=== PATIENT | male | born 1960 | race Caucasian/White ===

== ENCOUNTER 2020-10-25 14:22 | Outpatient (REF) | payer OTHER, SELFPAY | END 2020-10-25 14:23 | disposition home or self-care (01) | LOC: HO.LAB 14:22 | PROVIDERS: Visit Provider Internal Medicine | DX: Z20.822 Contact with and (suspected) exposure to COVID-19 (principal) | CPT/HCPCS: 36415; C9803; U0003 ==

== ENCOUNTER 2020-11-29 11:32 | Outpatient (REF) | payer OTHER, SELFPAY ==
--- NOTE | ~2020-11-29 | XR_ITS ---
EXAMINATION: XR CHEST CLINICAL INFORMATION: Z98.890 - Other specified postprocedural states. COMPARISON: Chest radiographs 02/16/2019, 12/17/2018 TECHNIQUE: 2 views of the chest were obtained. FINDINGS: The heart is upper limits of normal size. There is even distribution vascularity which may suggest some mild elevated pulmonary venous pressure. There is coarsening of the bronchiolar markings. There are no [place] B lines or effusion. The costophrenic sulci are clear. The hilar and mediastinal contours are normal. There are surgical clips again noted right upper abdomen. No acute bony abnormality. XR/XR chest 2V IMPRESSION: Borderline heart size with even distribution vascularity which may suggest mild elevated pulmonary venous pressures. Coarsening bronchiolar markings. No [place] lines, infiltrate, or effusion.
--- NOTE | 2020-11-29 11:43 | ECG_ITS ---
Test Reason : OTHER CHEST PAIN Blood Pressure : / mmHG Vent. Rate : 091 BPM Atrial Rate : 091 BPM P-R Int : 156 ms QRS Dur : 132 ms QT Int : 396 ms P-R-T Axes : 057 -19 109 degrees QTc Int : 487 ms Sinus rhythm with occasional Premature ventricular complexes Possible Left atrial enlargement Left bundle branch block Abnormal ECG When compared with ECG of 17-DEC-2018 09:28, Premature ventricular complexes are now Present ST less elevated in Anterior leads Referred By: Gladys Clement Electronically Signed By:Gio Barkley
[2020-11-29 12:07] LABS: MANUAL DIFF FLAG NO
[2020-11-29 12:13] LABS: Basophils Percent Auto 0.1 % (0-2); Eosinophils Absolute Auto 0.1 X10*3/uL (0.0-0.4); Eosinophils Percent Auto 1.2 % (0-4); Hematocrit 41.8 % (42-52); Hemoglobin 13.1 g/dl (14.0-18.0); Imm Gran Abs Auto 0.03 X10*3/uL (0.00-0.03); Imm Gran Pct Auto 0.3 % (0.0-0.4); Lymphocytes Absolute Auto 1.9 X10*3/uL (1.2-4.9); Lymphocytes Percent Auto 21.9 % (20-40); Mean Corpuscular HGB Conc 31.3 g/dl (31.0-36.0); Mean Corpuscular Hemoglobin 25.6 pg (27.0-33.0); Mean Corpuscular Volume 81.8 fL (80-98); Mean Platelet Volume 11.8 fL (9.4-12.4); Monocytes Absolute Auto 0.8 X10*3/uL (0.1-1.2); Neutrophils Absolute Auto 5.9 X10*3/uL (2.0-8.3); Neutrophils Percent Auto 67.5 % (45-73); Platelet Count 257 X10*3/uL (160-400); Red Blood Count 5.11 X10*6/uL (4.60-5.80); White Blood Count 8.7 X10*3/uL (4.8-10.8)
[2020-11-29 12:39] LABS: Alanine Aminotransferase 32 U/L (0-40); Albumin Level 4.4 g/dL (3.5-5.0); Alkaline Phosphatase 66 U/L (39-117); Anion Gap 14 (12-20); Aspartate Amino Transferase 23 U/L (5-37); Bilirubin Total 0.5 mg/dL (0.0-1.0); Blood Urea Nitrogen 10 mg/dL (9-16); Calcium 9.2 mg/dL (8.4-10.2); Carbon Dioxide 26 mmol/L (22-29); Chloride 103 mmol/L (96-108); Cholesterol 360 mg/dL; Estimated Glomerular Filt Rate > 60; Glucose Fasting 100 mg/dL (60-99); HDL Cholesterol 38 mg/dL; Potassium 4.2 mmol/L (3.3-5.1); Sodium 139 mmol/L (135-145); Total Protein 7.1 g/dL (6.5-8.0); Triglycerides 590 mg/dL
[2020-11-29 12:40] LABS: Troponin-I High Sensitivity 5.8 ng/L (<3.5-35.0)
[2020-11-29 13:03] LABS: Prostate Specific Antigen Scr 0.65 ng/mL (<0.05-4.0)
== END 2020-11-29 11:33 | disposition home or self-care (01) ==
LOC: HO.LAB 11:32
PROVIDERS: PCP Physician Assistant; Visit Provider Nurse Practitioner Family
DX: Z00.00 Encounter for general adult medical examination without abnormal findings (principal); Z12.5 Encounter for screening for malignant neoplasm of prostate; R07.89 Other chest pain; Z98.890 Other specified postprocedural states
CPT/HCPCS: 36415; 71046; 80053; 80061; 84153; 84484; 85025; 93005

== ENCOUNTER → 2020-12-26 09:08 | Outpatient (BNVA) | payer OTHER, SELFPAY | PROVIDERS: PCP Physician Assistant; Visit Provider Nurse Practitioner ==

== ENCOUNTER → 2020-12-28 10:54 | Outpatient (BNVA) | payer OTHER, SELFPAY | PROVIDERS: PCP Physician Assistant; Visit Provider Internal Medicine Cardiovascular Disease ==

== ENCOUNTER → 2020-12-30 07:36 | Outpatient (REF) | payer OTHER, SELFPAY ==
--- NOTE | 2020-12-30 07:34 | CA_ITS ---
Transthoracic Echocardiogram Patient (Last, First, Middle): Jm Esparza J Gender: Male Date of : 1960 Age: 60 Procedure Date: 12/30/2020 Procedure Type: Transthoracic Echocardiogram Location: OP Height: 167.64 cm Weight: 72.58 kg BSA: 1.82 m2 Heart Rate: bpm BP: 122 / 60 mmHg Schedule Maker: Referring MD: Gio Barkley MD Symptoms: I44.7 - Left bundle-branch block, unspecified Study Quality: Fair ECG Rhythm: Sinus Conclusions: - 1. Severe LV systolic dysfunction with regional wall motion abnormality consistent with ischemic cardiomyopathy with elevated filling pressures 2. Mildly dilated left atrium 3. Mild aortic regurgitation 4. Normal RV systolic pressure 5. No pericardial effusion Findings Procedure Information Contrast agent, definity, is being given per protocol without apparent complications. Left Ventricle Normal left ventricular cavity size. There is normal left ventricular wall thickness. The left ventricular systolic function is severely decreased. The visually estimated ejection fraction is between 20-25%. There is evidence of regional wall motion abnormalities. Spectral Doppler is indicative of an impaired relaxation filling pattern. Elevated filling pressures. E/E prime ratio is >15, consistent with elevated filling pressures. Wall Motion Rest Echo Findings The anterior wall, the apical lateral, basal anteroseptal, and mid anteroseptal segments are hypokinetic. The inferoseptal wall, inferior wall, the apex, and apical septum segments are akinetic. All other scored wall segments showed normal motion. Right Ventricle Normal right ventricular cavity size and systolic function. Atria The left atrium is mildly dilated. There is no evidence of interatrial shunt. The right atrium is normal in size. Aortic Valve The aortic valve was not well visualized. There is mild calcification of the aortic valve. There is no aortic valve stenosis. There is mild aortic valve regurgitation. Mitral Valve Normal mitral valve structure and function. There is trace mitral valve regurgitation. There is no mitral valve stenosis. Pulmonic Valve The pulmonic valve was not well visualized. Tricuspid Valve Likely normal tricuspid valve structure and function. There is mild tricuspid valve regurgitation. The right ventricular systolic pressure is normal. The right ventricular systolic pressure is 17 mmHg. Normal right atrial pressure. There is no evidence of pulmonary hypertension. Great Vessels All visible segments of the aorta are normal in size. The pulmonary artery was not well visualized. Venous The inferior vena cava is normal in size and collapses greater than 50% with inspiration. Pericardium/Pleural There is no evidence of pericardial effusion. Prior Study Comparison No prior study available for comparison. Measurements 2D Linear Measurements IVSd: 0.78 0.6-0.9/0.6-1.0 cm LVIDd: 5.95 3.9-5.3/4.2-5.9 cm LVIDd Index: 3.27 2.4-3.2/2.2-3.1 cm/m2 LVIDs: 4.93 2.0-3.6 cm LVPWd: 0.85 0.7-1.1 cm Ao Root: 3.20 2.1-3.5 cm LA Diam: 3.50 2.7-3.8/3.0-4.0 cm LAIDs Index: 1.92 1.5-2.3 cm/m2 LV Mass: 232.44 67-162/88-224 g LV Mass Index: 127.71 43-95/49-115 g/m2 LVOT Diam: 2.20 3.0+(-)1.3 cm 2D Systolic Function EF 4C: 35.00 >55% EF 2C: 8.33 >55% EF BiP: 24.80 >55% Mitral Valve MV Pk E: 1.07 MV PK A: 1.19 MV Decel Time: 90.00 E/A: 0.90 E'Lateral: 8.90 E'Medial: 3.29 E/E' Med: 32.50 E/E' Lat: 12.00 PHT: 26.00 MVA PHT: 8.46 Decel Clarke: 11.88 Aortic Valve AoV Pk Gustavo: 1.64 AoV Mn Gustavo: 1.21 AoV VTI: 0.31 AoV Pk Grad: 11.00 Aov Mn Grad: 7.00 ZAIRE Cont.VTI: 2.74 AI Pk Gustavo: 4.21 AI Clarke: 4.81 LVOT LVOT Pk Gustavo: 1.20 LVOT Mn Gustavo: 0.81 LVOT VTI: 0.22 LVOT Pk Grad: 6.00 LVOT Mn Grad: 3.00 LVOT Diam: 2.20 LVOT Area: 3.80 Diastolic Function MV Pk E: 1.07 MV Pk A: 1.19 E/A: 0.90 E'Medial: 3.29 E/E' Med: 32.50 E' Laterial: 8.90 E/E' Lat: 12.00 Tricuspid Valve TR Pk Gustavo: 1.90 TR Pk Grad: 14.00 RA Press: 3.00 RVSP: 17.00 Great Vessels Aorta Ao Root-2D: 3.20 2.0-3.7 cm Ao Asc: 3.70 2.1-3.4 cm Pulmonary Valve PV Pk Gustavo: 1.06 Peak PV Grad: 4.00 Updated in Other Vendor System with Status of Final Remington Chappell MD electronically signed on 12/31/2020 3:31:43 PM with status of Final
== END ==
LOC: HO.CARD 07:36
PROVIDERS: Visit Provider Internal Medicine Cardiovascular Disease
DX: I44.7 Left bundle-branch block, unspecified (principal)
CPT/HCPCS: 93005; 93306; Q9957

== ENCOUNTER 2021-01-05 11:11 | Outpatient (REF) | payer OTHER, SELFPAY ==
[2021-01-05 12:33] LABS: Hematocrit 41.8 % (42-52); Hemoglobin 12.9 g/dl (14.0-18.0); Mean Corpuscular HGB Conc 30.9 g/dl (31.0-36.0); Mean Corpuscular Hemoglobin 25.5 pg (27.0-33.0); Mean Corpuscular Volume 82.6 fL (80-98); Mean Platelet Volume 12.7 fL (9.4-12.4); Platelet Count 283 X10*3/uL (160-400); Red Blood Count 5.06 X10*6/uL (4.60-5.80); Red Cell Distribution Width 13.6 % (11.0-16.0); White Blood Count 7.4 X10*3/uL (4.8-10.8)
[2021-01-05 12:41] LABS: Anion Gap 16 (12-20); Blood Urea Nitrogen 13 mg/dL (9-16); Calcium 10.1 mg/dL (8.4-10.2); Carbon Dioxide 27 mmol/L (22-29); Chloride 103 mmol/L (96-108); Estimated Glomerular Filt Rate > 60; Glucose Random 160 mg/dL (60-115); Potassium 4.5 mmol/L (3.3-5.1); Sodium 141 mmol/L (135-145)
== END 2021-01-05 11:12 | disposition home or self-care (01) ==
LOC: HO.LAB 11:11
PROVIDERS: Visit Provider Internal Medicine Cardiovascular Disease
DX: I25.5 Ischemic cardiomyopathy (principal)
CPT/HCPCS: 36415; 80048; 85027; 85610

== ENCOUNTER → 2021-01-19 11:08 | Outpatient (BNVA) | payer OTHER, SELFPAY | PROVIDERS: PCP Physician Assistant; Visit Provider Internal Medicine | DX: J45.40 Moderate persistent asthma, uncomplicated (principal); F17.200 Nicotine dependence, unspecified, uncomplicated | CPT/HCPCS: 99202 ==

== ENCOUNTER 2021-03-31 09:45 | Outpatient (REF) | payer OTHER, SELFPAY ==
--- NOTE | 2021-03-31 16:38 | PFT_ITS ---
INDICATION: Dyspnea and asthma. Off note, the patient is deaf. He used a tablet for ASL to interpret. SPIROMETRY: The FEV1 to FVC of 61% with an FEV1 of 1.55 L, which is 48% predicted and FVC of 2.52 L which is 61% predicted. Bronchodilators were not used due to the fact that the patient had just used his Combivent. Maximum voluntary ventilation 46% predicted. LUNG VOLUMES: Total lung capacity 91% predicted with residual volume 151% predicted. DIFFUSION CAPACITY: DLCO 75% predicted. He does have comparisons from 2017. INTERPRETATION: There is an obstructive ventilatory defect consistent with severe COPD. Again, bronchodilators were not provided due to his recent use of combivent. Maximum voluntary ventilation moderately decreased. Lung volumes with significant air trapping due to the COPD and there is also mild diffusion impairment. When compared to 2017, there is a significant decrease in the FVC, significant decrease in the FEV1, a trend decrease in the total lung capacity, a trend decrease in the residual volume, and a significant decrease in the diffusion capacity. Clinical correlation warranted. MD LAURITA Andrade/KWESI / [id number] MTDD
== END 2021-03-31 09:46 | disposition home or self-care (01) ==
LOC: HO.RESP 09:45
PROVIDERS: Visit Provider Internal Medicine
DX: J45.40 Moderate persistent asthma, uncomplicated (principal); R06.02 Shortness of breath
CPT/HCPCS: 94010; 94727; 94729

== ENCOUNTER → 2021-04-18 11:30 | Outpatient (BNVA) | payer OTHER, SELFPAY | PROVIDERS: Visit Provider Psychiatry & Neurology Neurology | DX: R06.89 Other abnormalities of breathing (principal); R06.83 Snoring; R06.81 Apnea, not elsewhere classified | CPT/HCPCS: 99202 ==

== ENCOUNTER → 2021-05-10 10:43 | Outpatient (BNVA) | payer OTHER, SELFPAY | PROVIDERS: Visit Provider Internal Medicine | DX: J44.9 Chronic obstructive pulmonary disease, unspecified (principal); F17.200 Nicotine dependence, unspecified, uncomplicated | CPT/HCPCS: 99212 ==

== ENCOUNTER 2021-06-30 09:13 | Outpatient (REF) | payer OTHER, SELFPAY ==
[2021-06-30 09:49] LABS: Hematocrit 40.4 % (42-52); Hemoglobin 12.6 g/dl (14.0-18.0); Mean Corpuscular HGB Conc 31.2 g/dl (31.0-36.0); Mean Corpuscular Hemoglobin 26.4 pg (27.0-33.0); Mean Corpuscular Volume 84.5 fL (80-98); Mean Platelet Volume 11.3 fL (9.4-12.4); Platelet Count 280 X10*3/uL (160-400); Red Blood Count 4.78 X10*6/uL (4.60-5.80); White Blood Count 7.2 X10*3/uL (4.8-10.8)
[2021-06-30 10:31] LABS: Alanine Aminotransferase 32 U/L (0-40); Albumin Level 4.1 g/dL (3.5-5.0); Alkaline Phosphatase 71 U/L (39-117); Anion Gap 12 (12-20); Aspartate Amino Transferase 26 U/L (5-37); Bilirubin Total 0.5 mg/dL (0.0-1.0); Blood Urea Nitrogen 5 mg/dL (9-16); Calcium 9.5 mg/dL (8.4-10.2); Carbon Dioxide 25 mmol/L (22-29); Chloride 109 mmol/L (96-108); Cholesterol 187 mg/dL; Estimated Glomerular Filt Rate > 60; Glucose Fasting 125 mg/dL (60-99); HDL Cholesterol 45 mg/dL; LDL Cholesterol Calculated 98 mg/dl; Potassium 4.1 mmol/L (3.3-5.1); Sodium 142 mmol/L (135-145); Total Protein 6.7 g/dL (6.5-8.0); Triglycerides 220 mg/dL
[2021-06-30 10:46] LABS: TSH reflex Free T4 0.52 uIU/mL (0.32-4.0)
== END 2021-06-30 09:14 | disposition home or self-care (01) ==
LOC: HO.LAB 09:13
PROVIDERS: PCP Physician Assistant; Visit Provider Physician Assistant
DX: I25.118 Atherosclerotic heart disease of native coronary artery with other forms of angina pectoris (principal); I10 Essential (primary) hypertension
CPT/HCPCS: 36415; 80053; 80061; 84443; 85027

== ENCOUNTER → 2021-07-04 11:34 | Outpatient (BNVA) | payer OTHER, SELFPAY | PROVIDERS: PCP Physician Assistant; Referring Provider Physician Assistant; Visit Provider Psychiatry & Neurology Neurology | DX: R06.89 Other abnormalities of breathing (principal); R06.83 Snoring; R06.81 Apnea, not elsewhere classified | CPT/HCPCS: 99212 ==

== ENCOUNTER → 2021-07-26 15:11 | Outpatient (REF) | payer OTHER, SELFPAY | LOC: HO.SL 15:11 | PROVIDERS: Visit Provider Psychiatry & Neurology Neurology | DX: J44.9 Chronic obstructive pulmonary disease, unspecified (principal); R06.81 Apnea, not elsewhere classified; R06.83 Snoring; R06.89 Other abnormalities of breathing | CPT/HCPCS: 95806 ==

== ENCOUNTER 2021-08-07 | Outpatient (REF) | payer OTHER, SELFPAY | END 2021-08-07 00:01 | disposition home or self-care (01) | LOC: CF | PROVIDERS: Visit Provider Internal Medicine | DX: J34.2 Deviated nasal septum (principal); F17.210 Nicotine dependence, cigarettes, uncomplicated | CPT/HCPCS: 99212 ==

== ENCOUNTER 2021-08-07 10:07 | Outpatient (REF) | payer OTHER, SELFPAY | END 2021-08-07 10:08 | disposition home or self-care (01) | LOC: HO.HAP 10:07 | PROVIDERS: Visit Provider Physician Assistant | DX: H90.3 Sensorineural hearing loss, bilateral (principal); J43.2 Centrilobular emphysema; F17.210 Nicotine dependence, cigarettes, uncomplicated | CPT/HCPCS: 92593; 99212 ==

== ENCOUNTER → 2022-01-10 14:50 | Outpatient (BNVA) | payer OTHER, SELFPAY | PROVIDERS: PCP Physician Assistant; Visit Provider Psychiatry & Neurology Neurology | DX: R06.83 Snoring (principal); R06.89 Other abnormalities of breathing | CPT/HCPCS: 99212 ==

== ENCOUNTER 2022-02-05 10:28 | Outpatient (REF) | payer OTHER, SELFPAY | END 2022-02-05 10:29 | disposition home or self-care (01) | LOC: HO.HAP 10:28 | PROVIDERS: Visit Provider Physician Assistant | DX: Z46.1 Encounter for fitting and adjustment of hearing aid (principal); H90.3 Sensorineural hearing loss, bilateral | CPT/HCPCS: 92593 ==

== ENCOUNTER → 2022-02-07 11:20 | Outpatient (BNVA) | payer OTHER, SELFPAY | PROVIDERS: PCP Physician Assistant; Visit Provider Internal Medicine | DX: J43.2 Centrilobular emphysema (principal); J45.40 Moderate persistent asthma, uncomplicated; F17.210 Nicotine dependence, cigarettes, uncomplicated | CPT/HCPCS: 99212 ==

== ENCOUNTER 2023-05-08 10:18 | Outpatient (AMB) | payer OTHER, SELFPAY ==
--- NOTE | 2023-05-08 10:19 | A.OFFPC_ITS ---
Vital Signs 05/08/23 10:21 Height 5 ft 6 in Weight 71.214 kg BMI 25.3 BP 110/62 Blood Pressure Location Lt brachial Position Sitting Pulse 77 Pulse Source Pulse Oximeter Pulse Oximetry (%) 95 Intake Visit Reasons: [facility] 04/19/23 sob Intake Note: pt is here for ed f/u from for SOB Cnc Lathe Programmer Required: Yes Cnc Lathe Programmer Language: [place] Sign Language Allergies No Known Allergies [No Known Allergies*] Allergy (Verified 05/08/23 10:20) Medication List - Last Reconciled 05/08/23 by MAVERICK Fernandez albuterol sulfate 90 mcg/actuation (ProAir RespiClick) 2 inhalations inhalation Q4-6H PRN 30 days aspirin 81 mg PO DAILY atorvastatin 80 mg PO BEDTIME blood sugar diagnostic ([employer] Ultra Test strips) As directed blood-glucose meter ([employer] Ultra2 Meter) As directed budesonide-formoterol 80-4.5 mcg/actuation (Symbicort) 2 puffs inhalation BID dapagliflozin propanediol (Farxiga) 10 mg PO DAILY furosemide 20 mg PO DAILY ipratropium-albuterol 20-100 mcg/actuation (Combivent Respimat) 1 puff PO QID lancets ([employer] Delica Safety Lancet) As directed losartan 25 mg PO DAILY metoprolol succinate ER 25 mg PO DAILY Tobacco use date assessed: 05/08/23 Dental Screening Dental Screen Date: 05/08/23 Did you have a dental visit in the last 12 months?: Yes Did you have a dental problem in the last 6 months where you did not have access to dental care?: No Was dental information given to patient?: Patient has dentist HPI HPI Comments History of Present Illness Details 8-year-old male with history of hypertension, coronary artery disease with history of STEMI in 2019 s/p mid LAD PCI, ischemic cardiomyopathy presents to the office today for hospital discharge follow-up. He was admitted to [facility] from 04/20- for management of acute on chronic heart failure exacerbation. Discharge medications have been reviewed and reconciled by me. He had initially presented to [facility] ED for evaluation of dyspnea on exertion with associated chest discomfort lasting about 30 minutes. He was also hypertensive with SBP in the 200s. Chest x-ray showed cardiac enlargement, pulmonary edema and bilateral pleural effusion consistent with CHF. DDimer elevated at 425. CTA of the chest was also performed without any evidence of pulmonary embolism but again showed interstitial pulmonary edema with moderate right and trace left pleural effusion. Trops initially elevated at 30, but repeat negative x2. ProBNP elevated at 1340. LDL also noted to be elevated at 154. EKG showed nonspecific changes. Echocardiogram showed significantly reduced LV systolic function with EF 20-25% with akinesis and thinning of the septal wall, mid distal anterolateral wall and hypokinesis of the inferior and anterior wall with mild dilatation of the LV. There is also grade 2 moderate diastolic dysfunction with pseudonormal LV filling and increased LA pressures. There was moderate aortic regurgitation, mild to moderate mitral valve regurgitation and moderate pulmonary hypertension. Medication noncompliance was suspected. He was diuresed with IV Lasix and transitioned to Lasix 20 mg p.o. daily and was also started on spironolactone 25 mg daily, Farxiga, and metoprolol 25 mg XL. He was continued on baby aspirin atorvastatin 80 mg. Incidentally found was new diagnosis of type 2 diabetes with hemoglobin A1c of 7.4. He was also incidentally found to have 1.0 cm pleural based nodular opacity at the left lower lobe with follow-up CT recommended in 3-6 months. Today he is here with his daughter. [place]ijani sign language interpretor used. Reports compliance with all discharge medications with full resolution of dyspnea and chest pain. He was not prescribed glucometer but is aware of diabetes diagnosis. [facility] Medical History Aortic regurgitation Asthma Chest pressure COPD (chronic obstructive pulmonary disease) Deaf, nonspeaking Grade II diastolic dysfunction Heart problem HFrEF (heart failure with reduced ejection fraction) High blood cholesterol level Hyperlipidemia Insomnia Mitral regurgitation KAITLYN (obstructive sleep apnea) Physical exam Shortness of breath at rest Surgical History History of cardiac catheterization History of cholecystectomy Family History Father No problems noted. Mother Diabetes Sister Diabetes High cholesterol Social History Housing: Apartment Alcohol intake: current Alcohol intake frequency: holidays/special occasions only Alcohol type: beer Patient Tobacco Use Status: Current everyday Tobacco user Cigarettes Per Day: 1 e-Cigarette/Vaping Use: Never Used service: No Current occupational status: disabled Cognitive needs: No Hearing needs: Yes Vision needs: Yes Questionnaire Thrive Questionnaire Date Thrive assessed: 03/28/22 RACHEL-7 AMB Questionnaire RACHEL-7 Date RACHEL - 7 assessed: 03/28/22 Source: Developed by Drs. Demond Rodarte, Beverly Estrada, Regan Rubio and colleagues, with an educational nanda from [employer]. Review of Systems Const All systems reviewed & are unremarkable except as noted in HPI and below Physical exam (Primary Care) Vital Signs: Last Vital Signs Pulse 77 05/08/23 10:21 BP 110/62 05/08/23 10:21 Pulse Ox 95 05/08/23 10:21 BMI result Body Mass Index 25.3 Tobacco/Smoking Status: Tobacco use Status Tobacco use date assessed 05/08/23 05/08/23 10:21 Patient Tobacco Use Status Current everyday Tobacco 05/08/23 10:21 e-Cigarette/Vaping Use Never Used 05/08/23 10:21 Thrive Assessment: Date of Thrive Assessment Date Thrive assessed 03/28/22 05/08/23 10:21 Const Other: Constitutional - Awake and Alert, No apparent distress Eyes - PERRLA, EOMI Cardiovascular - S1S2, RRR, No edema Respiratory - Normal lung expansion, Normal respiratory effort, No respiratory distress, CTA bilaterally Extremities - no calf tenderness bilaterally, no swelling Skin - Warm/Dry Neurological - Alert & oriented x3 Results Reviewed Results Reviewed: cbc, bmp, tropx3, bnp, ddimer, cxr, cta chest, echo Assessment and Plan Assessment & Plan (1) HFrEF (heart failure with reduced ejection fraction): Comment: EF 20-25% Code(s): I50.20 - Unspecified systolic (congestive) heart failure Plan: Clinically euvolemic on exam. Acute exacerbation likely related to noncompliance with medications. Continue lasix 20mg, spironolactone 25mg, farxiga 10mg, losartan 25mg. Blood pressures well controlled. Echocardiogram reviewed showing significantly reduced LV systolic fx with EF 20-25% and grade II diastolic dysfunction. Smoking cessation strongly encouraged. Recommend low sodium diet and fluid restrictions to 1.2L. Follow up with cardiology on 7/31 as scheduled. (2) Grade II diastolic dysfunction: Code(s): I51.89 - Other ill-defined heart diseases Plan: As above. (3) DMII (diabetes mellitus, type 2): Code(s): E11.9 - Type 2 diabetes mellitus without complications Qualifiers: Diabetes mellitus care home insulin use: without director long term care use Diabetes mellitus complication status: with hyperglycemia Qualified Code(s): E11.65 - Type 2 diabetes mellitus with hyperglycemia Plan: Hgb A1c at [facility] 7.4%, goal <7.0%. Continue Farxiga 10mg. Counseled on diabetic diet. Counseled on risks of poorly controlled type 2 diabetes. Will have community navigation follow. Follow up in 3 months with PCP. (4) Pulmonary nodule 1 cm or greater in diameter: Code(s): R91.1 - Solitary pulmonary nodule Plan: 1.0cm solid nodule seen on chest CTA. Pulmology consult placed with recommendation for repeat chest CT 3-6 months. Smoking cessation strongly encouraged. (5) CAD (coronary artery disease): Code(s): I25.10 - Atherosclerotic heart disease of [place] coronary artery without angina pectoris Qualifiers: Coronary Disease-Associated Artery/Lesion type: [place] artery [place] vs. transplanted heart: [place] heart Associated angina: with stable angina Qualified Code(s): I25.118 - Atherosclerotic heart disease of [place] coronary artery with other forms of angina pectoris Plan: No ongoing anginal chest pain. INitial trop elevated, but repeat negative x 2. EKG on admission with nonspecific abnormalities. LDL 156, goal <70, likekly n oncompliant with statin. Continue atorvastatin 80mg, asa 81mg daily, metoprolol 25mg XL. Follow up with cardiology as scheduled. Orders: Referrals Pulmonology Referral J44.9 - Chronic obstructive pulmonary disease, unspecified, R91.1 - Solitary pulmonary nodule Medications: New blood-glucose meter ([employer] Ultra2 Meter) As directed 1 ea 0RF blood sugar diagnostic ([employer] Ultra Test strips) As directed 100 ea 2RF lancets ([employer] Delica Safety Lancet) As directed 200 ea 0RF Refilled aspirin 81 mg PO DAILY 30 tabs 0RF atorvastatin 80 mg PO BEDTIME 90 tabs 2RF I25.118 - Atherosclerotic heart disease of [place] coronary artery with other forms of angina pectoris Coding Level of Care Code Est Pt Level 5 (15761) Diagnoses HFrEF (heart failure with reduced ejection fraction) I50.20 Grade II diastolic dysfunction I51.89 DMII (diabetes mellitus, type 2) E11.65 Diabetes mellitus care home insulin use: without care home use Diabetes mellitus complication status: with hyperglycemia Pulmonary nodule 1 cm or greater in diameter R91.1 CAD (coronary artery disease) I25.118 Coronary Disease-Associated Artery/Lesion type: [place] artery [place] vs. transplanted heart: [place] heart Associated angina: with stable angina Time Spent (min) 50 Comment results reviewed and H&P, D/S. Time also spent w/ pt with ASL interpretor and documentatio
[2023-05-08 10:21] VITALS: BP 110/62; PULSE 77; O2SAT 95; BMI 25.3
== END 2023-05-08 11:06 | disposition home or self-care (01) ==
PROVIDERS: PCP Physician Assistant; Visit Provider Physician Assistant
DX: I50.20 Unspecified systolic (congestive) heart failure (principal); E11.65 Type 2 diabetes mellitus with hyperglycemia; I51.89 Other ill-defined heart diseases; I25.118 Atherosclerotic heart disease of native coronary artery with other forms of angina pectoris; R91.1 Solitary pulmonary nodule
CPT/HCPCS: 99215

== ENCOUNTER 2023-05-13 15:11 | Outpatient (AMB) | payer OTHER, SELFPAY ==
[2023-05-13 15:19] VITALS: BP 100/54; PULSE 70; BMI 25.6
--- NOTE | 2023-05-13 15:19 | MHC.OFFVIS ---
Intake Vital Signs 05/13/23 15:19 Height 5 ft 6 in Weight 158 lb 11.725 oz BMI 25.6 BP 100/54 L Blood Pressure Location Lt brachial Position Sitting Pulse 70 Intake Visit Reasons: [facility] follow up acute CHF Intake Note: [facility] f/u acute CHF Archery Equipment Hay Sorter Required: Yes Archery Equipment Hay Sorter Name: cyracom Allergies No Known Allergies [No Known Allergies*] Allergy (Verified 05/13/23 15:28) Medication List - Last Reconciled 05/13/23 by Felicitas Chester, ROSTER CLERK-C albuterol sulfate 90 mcg/actuation (ProAir RespiClick) 2 inhalations inhalation Q4-6H PRN 30 days aspirin 81 mg PO DAILY atorvastatin 80 mg PO BEDTIME blood sugar diagnostic ([employer]uch Ultra Test strips) As directed blood-glucose meter ([employer]ating[employer]uch Ultra2 Meter) As directed budesonide-formoterol 80-4.5 mcg/actuation (Symbicort) 2 puffs inhalation BID dapagliflozin propanediol (Farxiga) 10 mg PO DAILY furosemide 20 mg PO DAILY ipratropium-albuterol 20-100 mcg/actuation (Combivent Respimat) 1 puff PO QID lancets ([employer] Delica Safety Lancet) As directed losartan 25 mg PO DAILY metoprolol succinate ER 25 mg PO DAILY HPI [facility] follow up acute CHF HPI Details Jm is a 62-year-old male with past medical history smoking, hypertension, hyperlipidemia, impaired fasting glucose left bundle branch block, CAD with prior anterior STEMI with HENRIK to the LAD, obstructive sleep apnea who was recently admitted to [facility] with increased shortness of breath and treated for hypoxic respiratory failure heart failure with reduced EF, COPD exacerbation. Today he presents for follow-up. His sister is present and assists with Jamaican and sign language communication. His daughter is also on face time and providing information regarding her father's condition. Patient reports he is feeling good with no concerning symptoms. He says he is okay. No chest discomfort, shortness of breath, dizziness, swelling. It does light physical activities at home. Family reports he is taking his medications as directed. [facility] Medical History Aortic regurgitation Asthma Chest pressure COPD (chronic obstructive pulmonary disease) Deaf, nonspeaking Grade II diastolic dysfunction Heart problem HFrEF (heart failure with reduced ejection fraction) High blood cholesterol level Hyperlipidemia Insomnia Mitral regurgitation KAITLYN (obstructive sleep apnea) Physical exam Shortness of breath at rest Surgical History History of cardiac catheterization History of cholecystectomy Family History Father No problems noted. Mother Diabetes Sister Diabetes High cholesterol Social History Housing: Apartment Alcohol intake: current Alcohol intake frequency: holidays/special occasions only Alcohol type: beer Patient Tobacco Use Status: Current everyday Tobacco user Cigarettes Per Day: 1 e-Cigarette/Vaping Use: Never Used service: No Current occupational status: disabled Cognitive needs: No Hearing needs: Yes Vision needs: Yes Review of Systems Const All systems reviewed & are unremarkable except as noted in HPI and below ENT Reports dizziness Card Denies chest pain, Denies chest pain at rest, Denies chest pain with activity, Denies rapid heart rate, Denies pedal edema, Denies edema, Denies leg edema, Denies lightheadedness, Denies palpitations, Denies dyspnea, Denies dyspnea on exertion and Denies orthopnea Resp Denies cough, Denies dyspnea and Denies dyspnea on exertion GI Denies hematochezia and Denies change in stool character Musc Denies abnormal gait, Reports limited range of motion, Reports muscle cramps, Denies muscle weakness, Denies numbness, Denies radiating pain into limb, Denies stiffness and Denies tingling Neuro Denies abnormal gait, Reports dizziness, Denies numbness and Denies tingling Endo Denies palpitations Physical Exam Vital Signs: Last Vital Signs Pulse 70 05/13/23 15:19 BP 100/54 L 05/13/23 15:19 BMI result Body Mass Index 25.6 Const General: cooperative, healthy appearing, comfortable and no acute distress Orientation/consciousness: patient oriented x3 Neck Neck: Yes normal visual inspection Resp Effort & Inspection: normal respiratory effort Auscultation: clear to auscultation bilaterally, no crackles, no rales, no rhonchi and no wheezes Cardio Jugular venous distension: no JVD Rate: regular rate Rhythm: regular rhythm Heart sounds: S1 normal heart sound present, S2 normal heart sound present, no murmurs and no rubs GI Inspection: Yes normal to inspection Neuro General: patient oriented x3 Extrem General: Yes normal to inspection, No no pedal edema and No calf tenderness Psych Other: Sign language and lip reading Appearance: grossly normal Mental Status: mental status grossly normal Office Procedures EKG Details: Today, read by me, sinus rhythm, possible left atrial enlargement, right axis deviation, nonspecific intraventricular conduction delay, nonspecific T-wave abnormality, similar to prior EKG, rate 70, QTC 451 milliseconds [id number], Complete Assessment & Plan Assessment & Plan (1) CAD (coronary artery disease): Code(s): I25.10 - Atherosclerotic heart disease of [place] coronary artery without angina pectoris Qualifiers: Associated angina: with stable angina Coronary Disease-Associated Artery/Lesion type: [place] artery [place] vs. transplanted heart: [place] heart Qualified Code(s): I25.118 - Atherosclerotic heart disease of [place] coronary artery with other forms of angina pectoris Plan: History of CAD with prior anterior STEMI proximal LAD occlusion and HENRIK placed. 12/2018. He did have residual ischemic cardiomyopathy with EF 30-35%. Cardiac catheterization done for chest discomfort 01/06/2021 showed mid LAD stent patent, proximal section 40% stenosis, 1st diagonal 30% stenosis, left circumflex mild disease, RCA mild disease, distally 75% stenosis. Last echo in our system 12/30/2020 showed EF 20-25%. His last prior visit in our office was 12/28/2020. He was then admitted to [facility] recently with shortness of breath and treated for heart failure with reduced EF, hypoxic respiratory failure, COPD exacerbation. The echocardiogram from [facility] indicates EF 20-25%. Nuclear stress test was done 04/23/2023 showing ischemic cardiomyopathy, severe large fixed perfusion defect in the basal to apical anterior septal and inferior septal and inferior mayers he is currently being managed medically with aspirin indefinitely. Atorvastatin 80 mg daily, metoprolol XL 25 mg daily, losartan 25 mg daily. His blood pressure today 100/54, heart rate controlled at 70. He reports feeling well with no anginal sounding symptoms. (2) History of coronary artery stent placement: Comment: He presented with anterior STEMI in December 2018. He underwent emergent cardiac catheterization where proximal LAD was occluded which was treated with drug-eluting stent. Code(s): Z95.5 - Presence of coronary angioplasty implant and graft (3) Ischemic cardiomyopathy: Comment: Post myocardial infarction his ejection fraction was 30 35%. Since then he has not had any evaluation of his left ventricular function. Clinically not in heart failure. Code(s): I25.5 - Ischemic cardiomyopathy Plan: EF 20-25% on most recent echo. He is on metoprolol XL and losartan for neurohormonal modulation. Unable to further titrate at present due to blood pressure 100/54. No clinical signs of decompensated heart failure. He was treated for mild heart failure during last hospital admission at [facility]. He continues on low-dose Lasix 20 mg daily. Signs and symptoms of heart failure reviewed. Will check with his primary community development planner regarding ICD placement. (4) HFrEF (heart failure with reduced ejection fraction): Comment: EF 20-25% Code(s): I50.20 - Unspecified systolic (congestive) heart failure Plan: As above (5) LBBB (left bundle branch block): Comment: Chronic and stable Code(s): I44.7 - Left bundle-branch block, unspecified Plan: History of left bundle branch block. May benefit from Bi V ICD (6) Deaf, nonspeaking: Code(s): H91.3 - Deaf nonspeaking, not elsewhere classified Plan: building insulation installer recommended for visit Coding Level of Care Code Est Pt Level 4 (61552) Diagnoses CAD (coronary artery disease) I25.118 Associated angina: with stable angina Coronary Disease-Associated Artery/Lesion type: [place] artery [place] vs. transplanted heart: [place] heart History of coronary artery stent placement Z95.5 Ischemic cardiomyopathy I25.5 HFrEF (heart failure with reduced ejection fraction) I50.20 LBBB (left bundle branch block) I44.7 Deaf, nonspeaking H91.3 CPT Codes EKG - CPT: [id number], Complete ([id number]) Time Spent (min) 30 Comment Chart review, documentation, interview, assessment
== END 2023-05-13 15:56 | disposition home or self-care (01) ==
PROVIDERS: PCP Physician Assistant; Visit Provider Nurse Practitioner Family
DX: R94.31 Abnormal electrocardiogram [ECG] [EKG] (principal)
CPT/HCPCS: 93010; 99214

== ENCOUNTER → 2023-05-13 15:11 | Outpatient (BNVA) | payer OTHER, SELFPAY | PROVIDERS: PCP Physician Assistant; Visit Provider Nurse Practitioner Family | DX: I25.118 Atherosclerotic heart disease of native coronary artery with other forms of angina pectoris (principal); I25.5 Ischemic cardiomyopathy; I50.20 Unspecified systolic (congestive) heart failure; I44.7 Left bundle-branch block, unspecified; H91.3 Deaf nonspeaking, not elsewhere classified; Z95.5 Presence of coronary angioplasty implant and graft | CPT/HCPCS: 93005; 99212 ==

== ENCOUNTER 2023-05-16 14:28 | Outpatient (AMB) | payer OTHER, SELFPAY ==
[2023-05-16 14:31] VITALS: BP 128/62; PULSE 88; O2SAT 96
--- NOTE | 2023-05-16 14:31 | MHC.OFFVIS ---
Intake Vital Signs 05/16/23 14:31 Weight 163 lb 2.273 oz BP 128/62 Blood Pressure Location Lt brachial Position Sitting Pulse 88 Pulse Source Pulse Oximeter Pulse Oximetry (%) 96 Oxygen Delivery Method Room Air Intake Visit Reasons: Abnormal CTA Allergies No Known Allergies [No Known Allergies*] Allergy (Verified 05/16/23 14:54) Medication List - Last Reconciled 05/16/23 by Santa Uribe MD aspirin 81 mg PO DAILY atorvastatin 80 mg PO BEDTIME blood sugar diagnostic (Doctor on [employer] Ultra Test strips) As directed blood-glucose meter ([place] [employer] Ultra2 Meter) As directed dapagliflozin propanediol (Farxiga) 10 mg PO DAILY furosemide 20 mg PO DAILY ipratropium-albuterol 20-100 mcg/actuation (Combivent Respimat) 1 puff PO QID lancets ([employer] Delica Safety Lancet) As directed losartan 25 mg PO DAILY metoprolol succinate ER 25 mg PO DAILY Do you need a note to return to daycare/school/sports/work: No HPI Abnormal CTA HPI Details 62 YEARS OLD, SYRIAC GENTLEMAN, DEAF AND MUTE, COMMUNICATES ONLY WITH SIGN LANGUAGE. HIS SISTER CAME WITH HIM BUT SHE SPEAKS ONLY SYRI[place]. WE EXAMINED HIM WITH THE HELP OF A OVEN DRIER TENDER. HE HAS LONGSTANDING HISTORY OF SMOKING BUT ONLY A FEW CIGARETTES PER DAY. HE HAS HAD SYMPTOMS OF ASTHMA/MILD COPD, AND HAS USED COMBIVENT RESPIMAT 1 INHALATION Q 6 HOURS P.R.N.. SOME DAYS HE USES ONLY 1 OR 2 TIMES, AND SOME DAYS HE DOES NOT NEED AT ALL. IF HE DOES HAVE HISTORY OF CORONARY ARTERY DISEASE WITH PREVIOUS ANGIOPLASTY AND STENT PLACEMENT. HIS OTHER COMORBIDITIES INCLUDE HYPERLIPIDEMIA, HYPERTENSION MILD CONGESTIVE HEART FAILURE. HE LIVES ALONE BUT CLOSE LEAVE WATCHED BY HIS SISTER. HE WAS ADMITTED AT [facility] A FEW WEEKS AGO FOR CHEST PAIN. HE HAD CT ANGIOGRAM OF THE CHEST BECAUSE OF ELEVATED D-DIMER. THERE WAS NO EVIDENCE OF PULMONARY EMBOLISM. HE WAS FOUND TO HAVE MULTIPLE SMALL GRANULOMATOUS NODULES CALCIFIED. BUT 1 NODULE WAS 1 X 0.8 CM, BASED IN LEFT LOWER LOBE. A FOLLOW-UP CT SCAN IN 3-6 MONTHS WAS RECOMMENDED. ALSO RECOMMENDED THAT HE SHOULD HAVE PULMONARY FUNCTION TEST. SINCE THAT ADMISSION PATIENT HAS NOT SMOKED., AND EVEN BEFORE THAT HE WAS SMOKING ONLY A FEW CIGARETTES A DAY. PFSH Medical History Aortic regurgitation Asthma Chest pressure COPD (chronic obstructive pulmonary disease) Deaf, nonspeaking Grade II diastolic dysfunction Heart problem HFrEF (heart failure with reduced ejection fraction) High blood cholesterol level Hyperlipidemia Insomnia Mitral regurgitation KAITLYN (obstructive sleep apnea) Physical exam Shortness of breath at rest Surgical History History of cardiac catheterization History of cholecystectomy Family History Father No problems noted. Mother Diabetes Sister Diabetes High cholesterol Social History Housing: Apartment Alcohol intake: current Alcohol intake frequency: holidays/special occasions only Alcohol type: beer Patient Tobacco Use Status: Current everyday Tobacco user Cigarettes Per Day: 1 e-Cigarette/Vaping Use: Never Used service: No Current occupational status: disabled Cognitive needs: No Hearing needs: Yes Vision needs: Yes Review of Systems Const All systems reviewed & are unremarkable except as noted in HPI and below Eyes Reports no additional complaints ENT Reports no additional complaints and Denies Normal hearing present (DEAF AND DUMB) Card Denies chest pain, Denies irregular heart rhythm and Denies leg edema Resp Reports as per HPI GI Reports no additional complaints Reports no additional complaints Musc Reports no additional complaints Neuro Denies Normal hearing present (DEAF AND DUMB) Physical Exam Vital Signs: Last Vital Signs Pulse 88 05/16/23 14:31 BP 128/62 05/16/23 14:31 Pulse Ox 96 05/16/23 14:31 Oxygen Delivery Method Room Air 05/16/23 14:31 Const General: healthy appearing, comfortable, no acute distress, alert and awake Orientation/consciousness: patient oriented x3 HEENT Head: Yes normal to inspection General nose exam: No nasal polyps present and No nasal discharge present Face and sinus: Yes sinuses nontender Mouth: oropharynx normal Throat: Yes posterior oropharynx normal Eyes General: appearance normal, both eyes and all related structures Neck Neck: Yes normal visual inspection, Yes no lymphadenopathy, Yes trachea midline and Yes no JVD Thyroid: Thyroid normal Chest Chest palpation & inspection: normal inspection of the chest, normal palpation of entire chest wall and no tenderness Resp Other: Percussion note resonant, breath sounds are equal on both sides, slightly distant with prolonged expiratory phase. No wheezes rhonchi or crepitations are heard today . Cardio Palpation: normal PMI Rate: regular rate Rhythm: regular rhythm Heart sounds: no gallops and no murmurs GI Palpation (GI): Soft to palpation, nontender, No hepatosplenomegaly present and no masses Auscultation: normal bowel sounds Back/Spine/Pelvis Thoracic/Lumbar Spine: thoracic and lumbar spine normal to inspection Skin General skin exam: no rashes or lesions noted Neuro General: patient oriented x3 and no focal motor deficits Cranial nerves: No Normal hearing present (DEAF AND DUMB) Extrem General: Yes normal to inspection, Yes no clubbing, cyanosis or edema and Yes no calf tenderness Psych Appearance: well kempt Mental Status: mental status grossly normal (Communicated with him via sign language) Speech and movement: Normal speech and movement present Results Reviewed Results Reviewed: The CTA of , at [facility] on 04/24/2023 is reviewed. Findings included: Moderate degree of pulmonary emphysema in the upper lungs Few scattered calcified granulomas in both lungs slightly increased bronchovascular markings One.0x0.8 cm sub pleural nodular opacity at left lower lobe No mediastinal or hilar lymph nodes noted except 1 prominent mediastinal lymph node 1.1 cm in size in the subcarinal area Assessment & Plan Assessment & Plan (1) Smoker: Comment: He is a long-time smoker. Claims that he smoked only a few cigarettes a day , not excessively. SINCE HIS ADMISSION TO [facility] HE HAS QUIT SMOKING COMPLETELY. HE WAS COMMENDED FOR DOING THAT AND ADVISED NOT TO RESUME. SMOKING AT ALL * HE COMPLETED THE PULMONARY FUNCTION. TEST TODAY AND DID VERY WELL THE RESULTS INDICATE MODERATELY SEVERE OBSTRUCTIVE AIRWAY DISORDER. NO SIGNIFICANT RESPONSE TO BDs . Code(s): F17.200 - Nicotine dependence, unspecified, uncomplicated (2) Asthma: Comment: This gentleman has long-standing history of bronchial asthma. But his symptoms are very minimal and clinically well controlled [place] : As under COPD Code(s): J45.909 - Unspecified asthma, uncomplicated Qualifiers: Asthma complication type: uncomplicated Asthma persistence: persistent Asthma severity: moderate Qualified Code(s): J45.40 - Moderate persistent asthma, uncomplicated (3) COPD (chronic obstructive pulmonary disease): Comment: HE DOES HAVE MILD TO MODERATE DEGREE OF CHRONIC OBSTRUCTIVE PULMONARY DISEASE. CURRENTLY SEEMS TO BE WELL CONTROLLED AND STABLE ON COMBIVENT RESPIMAT , USING ONLY P.R.N. ESPECIALLY WHEN HE WALKS AROUND. I ADVISED HIM TO USE 1 INHALATION TID REGULARLY, AND IN BETWEEN HE MIGHT USE EVERY 4-6 HOURS NEEDED. PRESCRIPTION IS RENEWED. * PULMONARY FUNCTION TEST PERFORMED IN THE OFFICE TODAY, RESULTS C/W MODERATELY SEVERE OBSTRUCTIVE AIRWAY DISORDER. NO RESPONSE TO BDs Code(s): J44.9 - Chronic obstructive pulmonary disease, unspecified Qualifiers: COPD type: emphysema Emphysema type: centrilobular Qualified Code(s): J43.2 - Centrilobular emphysema (4) Pulmonary nodule 1 cm or greater in diameter: Comment: PATIENT DOES HAVE MULTIPLE SMALL CALCIFIED GRANULOMAS, IN BOTH LUNGS. THESE ARE CONSIDERED BENIGN. ONE NODULE 1X0.8 CM IN LEFT LOWER LOBE DESCRIBED ABOVE. THERE IT IS NEEDS FOLLOW-UP SCAN WHICH WILL BE DONE IN 3-4 MONTHS. Code(s): R91.1 - Solitary pulmonary nodule Orders: Orders PFT pulmonary function test Today F17.200 - Nicotine dependence, unspecified, uncomplicated, J44.9 - Chronic obstructive pulmonary disease, unspecified, J45.909 - Unspecified asthma, uncomplicated Medications: Refilled ipratropium-albuterol 20-100 mcg/actuation (Combivent Respimat) 1 puff PO QID 12 mL 3RF J45.40 - Moderate persistent asthma, uncomplicated Coding Level of Care Code Est Pt Level 4 (38816) Diagnoses Smoker F17.200 Asthma J45.40 Asthma complication type: uncomplicated Asthma persistence: persistent Asthma severity: moderate COPD (chronic obstructive pulmonary disease) J43.2 COPD type: emphysema Emphysema type: centrilobular Pulmonary nodule 1 cm or greater in diameter R91.1
== END 2023-05-16 14:52 | disposition home or self-care (01) ==
PROVIDERS: PCP Physician Assistant; Visit Provider Internal Medicine
DX: F17.200 Nicotine dependence, unspecified, uncomplicated (principal); J45.40 Moderate persistent asthma, uncomplicated; J43.2 Centrilobular emphysema; R91.1 Solitary pulmonary nodule
CPT/HCPCS: 94060; 94727; 94729; 99214

== ENCOUNTER → 2023-05-16 14:28 | Outpatient (BNVA) | payer OTHER, SELFPAY | PROVIDERS: PCP Physician Assistant; Visit Provider Internal Medicine ==

== ENCOUNTER 2023-05-16 14:52 | Outpatient (REF) | payer OTHER, SELFPAY ==
--- NOTE | 2023-05-16 15:36 | PFT_ITS ---
INDICATION: COPD. SPIROMETRY: FEV1 to FVC of 58% with an FEV1 of 1.48 L, which is 47% predicted. FVC of 2.54 L, which is 61% predicted. No significant response to bronchodilators noted. Maximum voluntary ventilation 34% predicted. LUNG VOLUMES: Total lung capacity 77% predicted. DIFFUSION CAPACITY: DLCO 75% predicted. COMPARISONS: None. INTERPRETATION: There is an obstructive ventilatory defect consistent with severe COPD. No significant response to bronchodilators noted. Severe decrease in the maximum voluntary ventilation secondary to likely deconditioning and also worsening dynamic inspiratory capacity. Lung volumes do demonstrate a restrictive ventilatory defect consistent with mild restrictive lung disease. Need to consider underlying parenchymal lung disease. In addition to that, the patient does have a mild diffusion impairment secondary to the above. Clinical correlation warranted. Pasquale Mccoy MD MR/MODL / [id number]
== END 2023-05-16 14:53 | disposition home or self-care (01) ==
LOC: HO.RESP 14:52
PROVIDERS: Visit Provider Internal Medicine
DX: J43.2 Centrilobular emphysema (principal); R91.1 Solitary pulmonary nodule; F17.200 Nicotine dependence, unspecified, uncomplicated
CPT/HCPCS: 94010; 94727; 94729; 99212

== ENCOUNTER → 2023-07-23 14:16 | Outpatient (REF) | payer OTHER, SELFPAY | LOC: HO.CARD 14:16 | PROVIDERS: PCP Physician Assistant; Visit Provider Nurse Practitioner Family | DX: I25.5 Ischemic cardiomyopathy (principal) | CPT/HCPCS: 93308; Q9957 ==

== ENCOUNTER → 2023-07-23 14:20 | Outpatient (BNV) | payer OTHER, SELFPAY | PROVIDERS: PCP Physician Assistant; Visit Provider Internal Medicine | DX: I25.5 Ischemic cardiomyopathy (principal) | CPT/HCPCS: 93308 ==

== ENCOUNTER 2023-07-25 14:29 | Outpatient (AMB) | payer OTHER, SELFPAY ==
--- NOTE | 2023-07-25 14:41 | A.OFFVIS_ITS ---
Intake Vital Signs 07/25/23 14:43 Height 5 ft 6 in Weight 163 lb BMI 26.3 BP 110/60 Blood Pressure Location Lt brachial Position Sitting Pulse 87 Pulse Source Doppler Pulse Oximetry (%) 95 Oxygen Delivery Method Room Air Intake Visit Reasons: pulm nodule Intake Note: Patient is here for a follow up on pulmonary nodule, patient c/o asthma symptoms and is also following up on PFT results. Shellfish Manager Required: Yes Allergies No Known Allergies [No Known Allergies*] Allergy (Verified 07/25/23 15:02) Medication List - Last Reconciled 07/25/23 by Santa Uribe MD aspirin 81 mg PO DAILY atorvastatin 80 mg PO BEDTIME blood sugar diagnostic (FreeStyle Lite Strips) As directed blood-glucose meter (FreeStyle Lite Meter kit) As directed dapagliflozin propanediol (Farxiga) 10 mg PO DAILY furosemide 20 mg PO DAILY ipratropium-albuterol 20-100 mcg/actuation (Combivent Respimat) 1 puff PO QID lancets ([employer] Safety Lancet) As directed lancets (FreeStyle Lancets) As directed losartan 25 mg PO DAILY metoprolol succinate ER 25 mg PO DAILY Do you need a note to return to daycare/school/sports/work: No HPI pulm nodule HPI Details 62 years old gentleman who is deaf and d umb, communicates only with sign language. His came with him who speaks Bermudian, but not too good with sign language. We had his daughter on the cellphone, who helped us to communicate with him. He is the expressing that he feels fine and has only mild cough. Denies any wheezing, does have mild shortness of breath on walking around or climbing stairs. Main concern is that when he was at [facility] in April of this year he was told to have a pulmonary nodule which need to be followed up. Also he has had pulmonary function test and wants to go over the results. He has quit smoking for most of the time but still uses about 1 cigarette per day. [facility] Medical History Grade II diastolic dysfunction Mitral regurgitation Aortic regurgitation HFrEF (heart failure with reduced ejection fraction) COPD (chronic obstructive pulmonary disease) High blood cholesterol level Chest pressure Shortness of breath at rest Physical exam Heart problem KAITLYN (obstructive sleep apnea) Insomnia Hyperlipidemia Deaf, nonspeaking Asthma Surgical History History of cardiac catheterization History of cholecystectomy Family History Father No problems noted. Mother Diabetes Sister Diabetes High cholesterol Social History Housing: Apartment Alcohol intake: current Alcohol intake frequency: holidays/special occasions only Alcohol type: beer Patient Tobacco Use Status: Former Tobacco user Cigarettes Per Day: 1 e-Cigarette/Vaping Use: Never Used service: No Current occupational status: disabled Cognitive needs: No Hearing needs: Yes Vision needs: Yes Review of Systems Const All systems reviewed & are unremarkable except as noted in HPI and below Eyes Reports no additional complaints ENT Reports no additional complaints and Denies Normal hearing present (DEAF AND DUMB) Card Denies chest pain, Denies irregular heart rhythm and Denies leg edema Resp Reports as per HPI GI Reports no additional complaints Reports no additional complaints Musc Reports no additional complaints Neuro Denies Normal hearing present (DEAF AND DUMB) Physical Exam Vital Signs: Last Vital Signs Pulse 87 07/25/23 14:43 BP 110/60 07/25/23 14:43 Pulse Ox 95 07/25/23 14:43 Oxygen Delivery Method Room Air 07/25/23 14:43 BMI result Body Mass Index 26.3 Const General: healthy appearing, comfortable, no acute distress, alert and awake Orientation/consciousness: patient oriented x3 HEENT Head: Yes normal to inspection General nose exam: No nasal polyps present and No nasal discharge present Face and sinus: Yes sinuses nontender Mouth: oropharynx normal Throat: Yes posterior oropharynx normal Eyes General: appearance normal, both eyes and all related structures Neck Neck: Yes normal visual inspection, Yes no lymphadenopathy, Yes trachea midline and Yes no JVD Thyroid: Thyroid normal Chest Chest palpation & inspection: normal inspection of the chest, normal palpation of entire chest wall and no tenderness Resp Other: Percussion note resonant, breath sounds are equal on both sides, slightly distant with prolonged expiratory phase. No wheezes rhonchi or crepitations are heard today . Cardio Palpation: normal PMI Rate: regular rate Rhythm: regular rhythm Heart sounds: no gallops and no murmurs GI Palpation (GI): Soft to palpation, nontender, No hepatosplenomegaly present and no masses Auscultation: normal bowel sounds Back/Spine/Pelvis Thoracic/Lumbar Spine: thoracic and lumbar spine normal to inspection Skin General skin exam: no rashes or lesions noted Neuro General: patient oriented x3 and no focal motor deficits Cranial nerves: No Normal hearing present (DEAF AND DUMB) Extrem General: Yes normal to inspection, Yes no clubbing, cyanosis or edema and Yes no calf tenderness Psych Appearance: well kempt Mental Status: mental status grossly normal (Communicated with him via sign language) Speech and movement: Normal speech and movement present Results Reviewed Results Reviewed: Pulmonary function test on 05/16/2023 consistent with moderately severe obstructive airway disorder , only minimal response to bronchodilator therapy, CTA of chest at [facility] during his admission in April, showed 1 cm sub pleural based nodule in left lower lobe, A repeat CT scan after 3 months was recommended. Assessment & Plan Assessment & Plan (1) COPD (chronic obstructive pulmonary disease): Comment: HE DOES HAVE MILD TO MODERATE DEGREE OF CHRONIC OBSTRUCTIVE PULMONARY DISEASE. CURRENTLY SEEMS TO BE WELL CONTROLLED AND STABLE ON COMBIVENT RESPIMAT , USING ONLY P.R.N. ESPECIALLY WHEN HE WALKS AROUND. I ADVISED HIM TO USE 1 INHALATION TID REGULARLY, AND IN BETWEEN HE MIGHT USE EVERY 4-6 HOURS NEEDED. PRESCRIPTION IS RENEWED. * PULMONARY FUNCTION TEST PERFORMED ON 05/16/23 RESULTS C/W MODERATELY SEVERE OBSTRUCTIVE AIRWAY DISORDER. NO RESPONSE TO BDs TX: COMBIVENT RESPIMAT, 1 INHALATION T.I.D.. Code(s): J44.9 - Chronic obstructive pulmonary disease, unspecified Qualifiers: COPD type: emphysema Emphysema type: centrilobular Qualified Code(s): J43.2 - Centrilobular emphysema (2) Pulmonary nodule 1 cm or greater in diameter: Comment: PATIENT DOES HAVE MULTIPLE SMALL CALCIFIED GRANULOMAS, IN BOTH LUNGS. THESE ARE CONSIDERED BENIGN. ONE NODULE 1X0.8 CM IN LEFT LOWER LOBE DESCRIBED ABOVE. HE REPEAT CT SCAN AT 3 MONTHS INTERVAL WAS RECOMMENDED. SO I WILL BE ORDERING A EASE CT SCAN TODAY. Code(s): R91.1 - Solitary pulmonary nodule (3) Smoker: Comment: He is a long-time smoker. Claims that he smoked only a few cigarettes a day , not excessively. SINCE HIS ADMISSION TO [facility] HE HAS QUIT SMOKING COMPLETELY. HE WAS COMMENDED FOR DOING THAT AND ADVISED NOT TO RESUME. SMOKING AT ALL Code(s): F17.200 - Nicotine dependence, unspecified, uncomplicated Orders: Orders CT chest wo IV con Today J44.9 - Chronic obstructive pulmonary disease, unspecified, R91.1 - Solitary pulmonary nodule Medications: Changed From ipratropium-albuterol 20-100 mcg/actuation (Combivent Respimat) 1 puff PO QID 12 mL 3RF J45.40 - Moderate persistent asthma, uncomplicated To ipratropium-albuterol 20-100 mcg/actuation (Combivent Respimat) 1 puff PO QID 30 days 12 mL 5RF COPD J45.40 - Moderate persistent asthma, uncomplicated Coding Level of Care Code Est Pt Level 3 (21107) Diagnoses Centrilobular emphysema J43.2 COPD type: emphysema Emphysema type: centrilobular Pulmonary nodule 1 cm or greater in diameter R91.1 Smoker F17.200
[2023-07-25 14:43] VITALS: BP 110/60; PULSE 87; O2SAT 95; BMI 26.3
== END 2023-07-25 15:26 | disposition home or self-care (01) ==
PROVIDERS: PCP Physician Assistant; Visit Provider Internal Medicine
DX: J43.2 Centrilobular emphysema (principal); R91.1 Solitary pulmonary nodule; F17.200 Nicotine dependence, unspecified, uncomplicated
CPT/HCPCS: 99213

== ENCOUNTER → 2023-07-25 14:29 | Outpatient (BNVA) | payer OTHER, SELFPAY | PROVIDERS: PCP Physician Assistant; Visit Provider Internal Medicine | DX: J43.2 Centrilobular emphysema (principal); R91.1 Solitary pulmonary nodule; F17.210 Nicotine dependence, cigarettes, uncomplicated | CPT/HCPCS: 99212 ==

== ENCOUNTER 2023-08-08 11:01 | Outpatient (AMB) | payer OTHER, SELFPAY ==
[2023-08-08 11:08] VITALS: BP 140/78; PULSE 92; O2SAT 97; BMI 26.1
--- NOTE | 2023-08-08 11:08 | A.OFFPC_ITS ---
Vital Signs 08/08/23 11:08 Height 5 ft 6 in Weight 162 lb BMI 26.1 BP 140/78 H Blood Pressure Location Lt brachial Position Sitting Pulse 92 Pulse Source Pulse Oximeter Pulse Oximetry (%) 97 Oxygen Delivery Method Room Air Intake Visit Reasons: w/ pcp for dm management+ NEEDS PHQ9 Framing Consultant Required: Yes Framing Consultant Language: Irish Sign Language Allergies No Known Allergies [No Known Allergies*] Allergy (Verified 08/08/23 11:21) Medication List - Last Reconciled 08/08/23 by Eder Altman PA-C aspirin 81 mg PO DAILY atorvastatin 80 mg PO BEDTIME blood sugar diagnostic (FreeStyle Lite Strips) As directed blood-glucose meter (FreeStyle Lite Meter kit) As directed dapagliflozin propanediol (Farxiga) 10 mg PO DAILY furosemide 20 mg PO DAILY ipratropium-albuterol 20-100 mcg/actuation (Combivent Respimat) 1 puff PO QID 30 days lancets ([employer] Safety Lancet) As directed lancets (FreeStyle Lancets) As directed losartan 25 mg PO DAILY metformin 1,000 mg PO BID metoprolol succinate ER 25 mg PO DAILY Tobacco use date assessed: 05/08/23 Dental Screening Dental Screen Date: 08/08/23 Did you have a dental visit in the last 12 months?: Yes Did you have a dental problem in the last 6 months where you did not have access to dental care?: No Was dental information given to patient?: Patient has dentist HPI w/ pcp for dm management+ NEEDS PHQ9 HPI Details Patient is a 62 year male here today for a follow-up visit. Patient presents today with his sister. He is auditory impaired thus using interior design professor as well. ?Patient has a past medical history significant for CAD with stent placement , smoker, asthma, type 2 diabetes? hyperlipidemia. Admitted to [facility] in April of 2023 for acute Congestive heart failure exacerbation, echocardiogram showing low EF and global hypokinesis. Exacerbating fracture was thought to be medication noncompliance. ? .. CAD/ heart failure with reduced ejection fraction:? Patient is followed by marketing co op and continues on high potency statin anti-platelet therapy.? Patient's lipid panel much improved since previous.? Patient recently gotten echocardiogram with his marketing co op showing low EF. Discussion was had for possible ICD placement. .. COPD/pulmonary nodule: Per patient he reports he quit smoking. He has seen a viscosity worker. Still has a mild cough and wheeze daily.? He reports he uses his inhalers on a p.r.n. basis which does help. Was found to have a small calcified pulmonary nodule , pulmonology following nodules. .. Type 2 diabetes:? His diabetes is suboptimally controlled. Today's A1c at 9.0. Unclear if he has been taking metformin as it is not on his list anymore. Restart metformin a 1000 b.i.d.. Continue Farxiga Laboratory Tests 07/04/21 03/28/22 09:55 10:12 Hgb A1c (Clinic) 8.4 H 7.1 H [facility] Medical History (Updated 08/08/23 @ 12:07 by Eder Altman PA-C) Tobacco dependence Asthma Grade II diastolic dysfunction Mitral regurgitation Aortic regurgitation HFrEF (heart failure with reduced ejection fraction) COPD (chronic obstructive pulmonary disease) High blood cholesterol level Chest pressure Shortness of breath at rest Physical exam Heart problem KAITLYN (obstructive sleep apnea) Insomnia Hyperlipidemia Deaf, nonspeaking Asthma Surgical History History of cardiac catheterization History of cholecystectomy Family History Father No problems noted. Mother Diabetes Sister Diabetes High cholesterol Social History Housing: Apartment Alcohol intake: current Alcohol intake frequency: holidays/special occasions only Alcohol type: beer Patient Tobacco Use Status: Former Tobacco user Tobacco use type: Cigarette Cigarettes Per Day: 1 e-Cigarette/Vaping Use: Never Used service: No Current occupational status: disabled Cognitive needs: No Hearing needs: Yes Vision needs: Yes Questionnaire PHQ-9 Over the last 2 weeks, how often have you been bothered by any of the following problems? 1. Little interest or pleasure in doing things: not at all 2. Feeling down, depressed, or hopeless: not at all 3. Trouble falling or staying asleep, or sleeping too much: not at all 4. Feeling tired or having little energy: not at all 5. Poor appetite or overeating: not at all 6. Feeling bad about yourself - or that you are a failure or have let yourself or your family down: not at all 7. Trouble concentrating on things, such as reading the newspaper or watching television: not at all 8. Moving or speaking so slowly that other people could have noticed. Or the opposite - being so fidgety or restless that you have been moving around a lot more than usual: not at all 9. Thoughts that you would be better off or of hurting yourself in some way: not at all Total score: 0 Depression Screening Interpretation: Negative Depression Screening Done: Yes 79191 - PHQ-9 Billing: Yes Source: Developed by Drs. Demond Rodarte, Beverly Estrada, Regan Rubio and colleagues, with an educational nanda from [employer]. Thrive Questionnaire Date Thrive assessed: 08/08/23 I am a: Patient What is your living situation today?: I have a steady place to live Within the past 12 months, did the food you bought not last and you didn't have the money to get more?: Never true Within the past 12 months, did you worry whether your food would run out before you got money to buy more?: Never true Do you have trouble paying for medicines?: No Do you have trouble getting transportation to medical appointments?: No Do you have trouble paying your heating and electricity bill?: No Do you have trouble taking care of your child, family member or friend?: No Do you have trouble with day-to-day activities such as bathing, preparing meals, shopping, managing finances, etc.?: No Are you currently unemployed and looking for a job?: No Are you interested in more education?: No Currently or been in a relationship where the following occur: no concerns reported AUDIT C Alcohol Use Questionnaire (AUDIT-C) 1. How often do you have a drink containing alcohol?: Monthly or less 2. How many drinks containing alcohol do you have on a typical day when you are drinking?: 1 or 2 3. How often do you have six or more drinks on one occasion?: Never Total Score: 1 RACHEL-7 AMB Questionnaire RACHEL-7 Date RACHEL - 7 assessed: 08/08/23 Feeling nervous, anxious, or on edge: 0 = Not at all Not being able to stop or control worryin = Not at all Worrying too much about different things: 0 = Not at all Trouble relaxin = Not at all Being so restless that it is hard to sit still: 0 = Not at all Becoming easily annoyed or irritable: 0 = Not at all Feeling afraid as if something awful might happen: 0 = Not at all Total RACHEL-7 score (0-4 normal; 5-9 mild; 10-14 moderate; 15-21 severe): 0 Source: Developed by Drs. Demond Rodarte, Beverly Estrada, Regan Rubio and colleagues, with an educational nanda from [employer]. RACHEL-7 Assessment Billing RACHEL-7 Assessment Tool: RACHEL-7 Assessment 89404 Review of Systems Const Denies headache(s) Eyes Denies loss of vision ENT Denies vertigo, Denies dizziness, Denies headache(s) and Denies sore throat Card Denies chest pain, Denies leg edema and Denies lightheadedness Resp Denies cough, Denies hemoptysis and Denies wheezing GI Denies abdominal pain, Denies melena, Denies constipation, Denies diarrhea and Denies vomiting Denies dysuria, Denies urinary frequency and Denies urinary urgency Musc Denies arthralgias, Denies joint swelling, Denies numbness and Denies tingling Neuro Denies Abnormal speech present, Denies behavioral changes, Denies vertigo, Denies dizziness, Denies headache(s), Denies loss of vision, Denies memory loss, Denies numbness and Denies tingling Psych Denies anxiety, Denies behavioral changes, Denies depression, Denies memory loss and Denies panic attacks Luis/Lymph Denies easy bleeding and Denies easy bruising Aller/Immun Denies wheezing Physical exam (Primary Care) Vital Signs: Last Vital Signs Pulse 92 08/08/23 11:08 BP 140/78 H 08/08/23 11:08 Pulse Ox 97 08/08/23 11:08 Oxygen Delivery Method Room Air 08/08/23 11:08 BMI result Body Mass Index 26.1 Tobacco/Smoking Status: Tobacco use Status Tobacco use date assessed 05/08/23 08/08/23 11:10 Patient Tobacco Use Status Former Tobacco user 08/08/23 11:10 Tobacco use type Cigarette 08/08/23 11:10 e-Cigarette/Vaping Use Never Used 08/08/23 11:10 PHQ-9: PHQ-9 Score PHQ-9: Total score 0 08/08/23 11:22 Depression Screening Interpretation: Negative Thrive Assessment: Date of Thrive Assessment Date Thrive assessed 08/08/23 08/08/23 11:10 Currently or been in a relationship where the following occur: no concerns reported Const General: healthy appearing, no acute distress, alert and awake Nutritional Appearance: well nourished Orientation/consciousness: oriented to person, oriented to place and oriented to time HENMT Ears: TM's normal bilaterally General nose exam: Normal nasal mucous membranes and turbinates present Eyes Conjunctivae: conjunctivae normal Sclerae: sclerae normal Pupils: Equal, round and reactive pupils present Neck Neck: Yes no lymphadenopathy and Yes no JVD Thyroid: Thyroid normal Carotids: no bruits Resp Effort & Inspection: normal respiratory effort and not tachypneic Auscultation: no crackles, no rales, no rhonchi and no wheezes Cardio Rate: regular rate Rhythm: regular rhythm Heart sounds: no murmurs and normal S1 and S2 GI Palpation (GI): Soft to palpation, nontender, no hepatomegaly and no splenomegaly Auscultation: normal bowel sounds Skin General skin exam: no rashes or lesions noted and dry skin Neuro General: oriented to person, oriented to place and oriented to time Cranial nerves: Yes Equal, round and reactive pupils present Speech: No Abnormal speech present Gait exam (Neuro): Normal gait present Motor exam (neuro): no tremor noted Extrem Right upper extremity: full ROM Left upper extremity: full ROM Right lower extremity: full ROM; no edema Left lower extremity: full ROM; no edema Psych Mental Status: mental status grossly normal Speech and movement: Normal speech and movement present Affect: normal affect Attitude: cooperative Thought process: Normal thought process present Results AMB Hemoglobin A1c AMB Hemoglobin A1c 9.0 % Last Edit by Verito Cesar CMA on 08/08/23 11 :25 Assessment and Plan Assessment & Plan (1) HFrEF (heart failure with reduced ejection fraction): Comment: EF 20-25% Code(s): I50.20 - Unspecified systolic (congestive) heart failure Plan: Clinically euvolemic on exam. Acute exacerbation likely related to noncompliance with medications. Continue lasix 20mg, spironolactone 25mg, farxiga 10mg, losartan 25mg. Blood pressures well controlled. Echocardiogram reviewed showing significantly reduced LV systolic fx with EF 20-25% and grade II diastolic dysfunction. Smoking cessation strongly encouraged. Recommend low sodium diet and fluid restrictions to 1.2L. Considerations remain to start Entresto (2) DMII (diabetes mellitus, type 2): Code(s): E11.9 - Type 2 diabetes mellitus without complications Qualifiers: Diabetes mellitus terminal press operator insulin use: without terminal press operator use Diabetes mellitus complication status: with hyperglycemia Qualified Code(s): E11.65 - Type 2 diabetes mellitus with hyperglycemia Plan: Patient's type 2 diabetes suboptimally controlled. Today's A1c 9.0. Unclear if he has been taking metformin as it is not on his list and was previously. Will restart metformin a 1000 b.i.d.. Advised to continue starting Farxiga as it has benefit and Congestive heart failure with reduced ejection fraction. Goal A1c is to be below 7.0 (3) Pulmonary nodule 1 cm or greater in diameter: Comment: PATIENT DOES HAVE MULTIPLE SMALL CALCIFIED GRANULOMAS, IN BOTH LUNGS. THESE ARE CONSIDERED BENIGN. ONE NODULE 1X0.8 CM IN LEFT LOWER LOBE DESCRIBED ABOVE. HE REPEAT CT SCAN AT 3 MONTHS INTERVAL WAS RECOMMENDED. SO I WILL BE ORDERING A EASE CT SCAN TODAY. Code(s): R91.1 - Solitary pulmonary nodule Plan: 1.0cm solid nodule seen on chest CTA. Pulmology consult placed with recommendation for repeat chest CT 3-6 months. Smoking cessation strongly encouraged. (4) CAD (coronary artery disease): Code(s): I25.10 - Atherosclerotic heart disease of [place] coronary artery without angina pectoris Qualifiers: Coronary Disease-Associated Artery/Lesion type: [place] artery [place] vs. transplanted heart: [place] heart Associated angina: with stable angina Qualified Code(s): I25.118 - Atherosclerotic heart disease of [place] coronary artery with other forms of angina pectoris Plan: Continues to follow cardiology. Continues on neural home on all therapy with metoprolol. Most recent echocardiogram showing reduced ejection fraction. Considerations have been made to place ICD (5) COPD (chronic obstructive pulmonary disease): Comment: HE DOES HAVE MILD TO MODERATE DEGREE OF CHRONIC OBSTRUCTIVE PULMONARY DISEASE. CURRENTLY SEEMS TO BE WELL CONTROLLED AND STABLE ON COMBIVENT RESPIMAT , USING ONLY P.R.N. ESPECIALLY WHEN HE WALKS AROUND. I ADVISED HIM TO USE 1 INHALATION TID REGULARLY, AND IN BETWEEN HE MIGHT USE EVERY 4-6 HOURS NEEDED. PRESCRIPTION IS RENEWED. * PULMONARY FUNCTION TEST PERFORMED ON 05/16/23 RESULTS C/W MODERATELY SEVERE OBSTRUCTIVE AIRWAY DISORDER. NO RESPONSE TO BDs TX: COMBIVENT RESPIMAT, 1 INHALATION T.I.D.. Code(s): J44.9 - Chronic obstructive pulmonary disease, unspecified Qualifiers: COPD type: emphysema Emphysema type: centrilobular Qualified Code(s): J43.2 - Centrilobular emphysema Plan: Again patient followed by pulmonology. He does use a maintenance inhaler which is helpful for his pulmonary symptoms. He reports he has quit smoking though per pulmonology notes he does smoke 1 cigarette per day Orders: Orders Lipid Panel Today E11.65 - Type 2 diabetes mellitus with hyperglycemia Comprehensive [place]. Panel Fast Today E11.65 - Type 2 diabetes mellitus with hyperglycemia Complete Blood Count no Diff Today E11.65 - Type 2 diabetes mellitus with hyperglycemia AMB Hemoglobin A1c Today Z13.9 - Encounter for screening, unspecified Medications: New metformin 1,000 mg PO BID 90 days 180 tabs 3RF E11.65 - Type 2 diabetes mellitus with hyperglycemia Coding Level of Care Code Est Pt Level 4 (84348) Diagnoses HFrEF (heart failure with reduced ejection fraction) I50.20 Type 2 diabetes mellitus with hyperglycemia, without long-term current use of insulin E11.65 Diabetes mellitus terminal press operator insulin use: without terminal press operator use Diabetes mellitus complication status: with hyperglycemia Pulmonary nodule 1 cm or greater in diameter R91.1 Coronary artery disease of [place] artery of [place] heart with stable angina pectoris I25.118 Coronary Disease-Associated Artery/Lesion type: [place] artery [place] vs. transplanted heart: [place] heart Associated angina: with stable angina Centrilobular emphysema J43.2 COPD type: emphysema Emphysema type: centrilobular Additional Codes RACHEL-7 Assessment Billing - RACHEL-7 Assessment Tool: RACHEL-7 Assessment [id number] ([id number])
== END 2023-08-08 11:51 | disposition home or self-care (01) ==
PROVIDERS: PCP Physician Assistant; Visit Provider Physician Assistant
DX: I50.20 Unspecified systolic (congestive) heart failure (principal); E11.65 Type 2 diabetes mellitus with hyperglycemia; I25.118 Atherosclerotic heart disease of native coronary artery with other forms of angina pectoris; J43.2 Centrilobular emphysema
CPT/HCPCS: 83036; 99214

== ENCOUNTER 2023-08-28 13:56 | Outpatient (AMB) | payer OTHER, SELFPAY ==
--- NOTE | 2023-08-28 14:04 | A.OFFVIS_ITS ---
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 Name: asl and indian sign aravind Hand Finisher: Hand Finisher Present Allergies No Known Allergies [No Known Allergies*] Allergy (Verified 08/08/23 11:21) Medication List - Last Reconciled 08/28/23 by Gio Barkley MD aspirin 81 mg PO DAILY atorvastatin 80 mg PO BEDTIME blood sugar diagnostic (FreeStyle Lite Strips) As directed blood-glucose meter (FreeStyle Lite Meter kit) As directed ipratropium-albuterol 20-100 mcg/actuation (Combivent Respimat) 1 puff PO QID 30 days lancets ([employer] Safety Lancet) As directed lancets (FreeStyle Lancets) As directed losartan 25 mg PO DAILY metformin 1,000 mg PO BID 90 days metoprolol succinate ER 25 mg PO DAILY HPI HPI Comments History of Present Illness Details Very pleasant 62-year-old gentleman who was seen in December 2018 when he presented with chest pain and anterior ST-elevation [place]. He was transferred emergently to [facility] where he underwent cardiac catheterization which revealed prox left anterior descending artery occlusion which was treated with drug-eluting stent. Subsequent to that his echocardiography at [facility] has shown EF of 30 35%. He did not follow-up regularly after that on him for follow-up approximately 2 years later before surgery. He had echocardiography which showed severe LV dysfunction. He was taken for diagnostic angiography which showed patent LAD stent with severe distal RCA stenosis. He did not have any anginal symptoms and RCA was not treated. He was started on guideline directed medical therapy. He has seen Felicitas Chester in our office since then. 08/28/2023: He returns for follow-up. Gold nicolas was seen with senior interior designer because he is deaf. He is denying any chest discomfort or shortness of breath. His main complaint is abdominal discomfort and looks like he has been constipated. He thinks that this is due to tap water. Otherwise is denying any symptoms at this point. Unclear about his medications whether he is taking them or not but from his description it looks like he gets pillbox from pharmacy. [facility] Medical History (Updated 08/28/23 @ 19:20 by Gio Barkley MD) Tobacco dependence Asthma Grade II diastolic dysfunction Mitral regurgitation Aortic regurgitation HFrEF (heart failure with reduced ejection fraction) COPD (chronic obstructive pulmonary disease) High blood cholesterol level Chest pressure Shortness of breath at rest Physical exam Heart problem KAITLYN (obstructive sleep apnea) Insomnia Hyperlipidemia Deaf, nonspeaking Asthma Surgical History History of cardiac catheterization History of cholecystectomy Family History Father No problems noted. Mother Diabetes Sister Diabetes High cholesterol Social History Housing: Apartment Alcohol intake: current Alcohol intake frequency: holidays/special occasions only Alcohol type: beer Patient Tobacco Use Status: Former Tobacco user Tobacco use type: Cigarette Cigarettes Per Day: 1 e-Cigarette/Vaping Use: Never Used service: No Current occupational status: disabled Cognitive needs: No Hearing needs: Yes Vision needs: Yes Review of Systems Const Denies chills, Denies fatigue, Denies fever(s), Denies frequent falls, Denies weakness, Denies weight gain and Denies weight loss ENT Denies dizziness Card Denies chest pain, Denies leg edema, Denies lightheadedness, Denies palpitations, Denies dyspnea, Denies dyspnea on exertion, Denies orthopnea and Denies other (loss of consciousness) Resp Denies cough, Denies dyspnea and Denies dyspnea on exertion GI Denies hematochezia and Denies change in stool character Musc Denies abnormal gait, Denies muscle weakness, Denies numbness, Denies radiating pain into limb and Denies tingling Neuro Denies abnormal gait, Denies dizziness, Denies frequent falls, Denies numbness, Denies tingling and Denies weakness Endo Denies fatigue and Denies palpitations Physical Exam Vital Signs: Last Vital Signs Pulse 92 08/28/23 14:05 BP 122/78 08/28/23 14:05 BMI result Body Mass Index 27.0 GENERAL APPEARANCE: in no acute distress, pleasant. deaf. NECK: no carotid bruit, mild jugular venous distention. SKIN: no suspicious lesions, warm and dry. HEART: no murmurs, regular rate and rhythm. LUNGS: clear to auscultation bilaterally. ABDOMEN: soft, nontender. mildly distended. EXTREMITIES: no edema. PERIPHERAL PULSES: equal. NEUROLOGIC: No gross deficits, AAO X 3 Assessment & Plan Assessment & Plan (1) Ischemic cardiomyopathy: Code(s): I25.5 - Ischemic cardiomyopathy Plan 62-year-old gentleman who is here for follow-up. He had anterior wall [place] in 2019 and had moderate LV dysfunction. He lost to follow-up after that came back 2 years later with severe LV dysfunction. He continues to has severe LV dysfunction at this point. This is due to anterior wall [place] and the fact that he was not on guideline directed medical therapy. He has been on losartan 25 mg, metoprolol succinate 25 mg. It appears he was on Farxiga but it is unclear why it has been stopped. He also is not on any furosemide anymore. I think we should add spironolactone 25 mg once a day to his regimen. He has mild JVD and I think beta-asiya should not be titrated currently. Depending on his blood pressure will titrate losartan. We will repeat an echocardiogram in few months again on these medications and decide about ICD. Thank you for allowing me to participate in the care of your patient. Please feel free to contact me if you have any questions. Orders: Orders CA echo transthoracic complete 3 Months I25.5 - Ischemic cardiomyopathy Medications: New spironolactone 25 mg PO DAILY 60 tabs 3RF Coding Level of Care Code Est Pt Level 4 (35105) Diagnoses Ischemic cardiomyopathy I25.5
[2023-08-28 14:05] VITALS: BP 122/78; PULSE 92; BMI 27.0
== END 2023-08-28 14:31 | disposition home or self-care (01) ==
PROVIDERS: PCP Physician Assistant; Visit Provider Internal Medicine Cardiovascular Disease
DX: I25.5 Ischemic cardiomyopathy (principal)
CPT/HCPCS: 99214

== ENCOUNTER → 2023-08-28 13:56 | Outpatient (BNVA) | payer OTHER, SELFPAY | PROVIDERS: PCP Physician Assistant; Visit Provider Internal Medicine Cardiovascular Disease | DX: I25.5 Ischemic cardiomyopathy (principal) | CPT/HCPCS: 99212 ==

== ENCOUNTER 2023-10-04 15:11 | Outpatient (REF) | payer OTHER, SELFPAY | END 2023-10-04 15:12 | disposition home or self-care (01) | LOC: HO.CT 15:11 | PROVIDERS: PCP Physician Assistant; Visit Provider Internal Medicine | DX: R91.1 Solitary pulmonary nodule (principal); J44.9 Chronic obstructive pulmonary disease, unspecified | CPT/HCPCS: 71250 ==

== ENCOUNTER 2023-11-08 11:42 | Outpatient (REF) | payer OTHER, SELFPAY ==
[2023-11-08 12:59] LABS: Hematocrit 41.9 % (42.0-52.0); Hemoglobin 12.9 g/dl (14.0-18.0); Mean Corpuscular HGB Conc 30.8 g/dl (31.0-36.0); Mean Corpuscular Hemoglobin 25.3 pg (27.0-33.0); Mean Corpuscular Volume 82.2 fL (80.0-98.0); Platelet Count 294 X10*3/uL (160-400); Red Cell Distribution Width 13.2 % (11.0-16.0); White Blood Count 7.2 X10*3/uL (4.8-10.8)
[2023-11-08 13:23] LABS: Alanine Aminotransferase 10 U/L (0-40); Albumin Level 4.2 g/dL (3.5-5.0); Alkaline Phosphatase 100 U/L (39-117); Anion Gap 15 (12-20); Aspartate Amino Transferase 16 U/L (5-37); Bilirubin Total 0.5 mg/dL (0.0-1.0); Blood Urea Nitrogen 13 mg/dL (9-16); Calcium 10.2 mg/dL (8.4-10.2); Carbon Dioxide 24 mmol/L (22-29); Chloride 104 mmol/L (96-108); Cholesterol 162 mg/dL (<200); Estimated Glomerular Filt Rate > 60; Glucose Fasting 91 mg/dL (60-99); HDL Cholesterol 45 mg/dL (>40); LDL Cholesterol Calculated 97 mg/dL (<100); Potassium 3.7 mmol/L (3.3-5.1); Sodium 139 mmol/L (135-145); Total Protein 7.9 g/dL (6.5-8.0); Triglycerides 102 mg/dL (<150)
== END 2023-11-08 11:43 | disposition home or self-care (01) ==
LOC: HO.LAB 11:42
PROVIDERS: PCP Physician Assistant; Visit Provider Physician Assistant
DX: E11.65 Type 2 diabetes mellitus with hyperglycemia (principal)
CPT/HCPCS: 36415; 80053; 80061; 85027

== ENCOUNTER 2023-11-11 11:17 | Outpatient (AMB) | payer OTHER, SELFPAY ==
[2023-11-11 11:21] VITALS: BP 100/66; PULSE 89; O2SAT 98; BMI 25.5
--- NOTE | 2023-11-11 11:21 | MHC.PC.OV ---
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 Tissue Massage Therapist Required: No Accompanied by: Sister Allergies No Known Allergies [No Known Allergies*] Allergy (Verified 11/11/23 11:39) Medication List - Last Reconciled 11/11/23 by Eder Altman PA-C aspirin 81 mg PO DAILY atorvastatin 80 mg PO BEDTIME baclofen 10 mg PO BID 15 days blood sugar diagnostic (FreeStyle Lite Strips) As directed blood-glucose meter (FreeStyle Lite Meter kit) As directed dapagliflozin propanediol (Farxiga) 10 mg PO DAILY 90 days ipratropium-albuterol 20-100 mcg/actuation (Combivent Respimat) 1 puff PO QID 30 days lancets ([employer] Safety Lancet) As directed lancets (FreeStyle Lancets) As directed losartan 25 mg PO DAILY metformin 1,000 mg PO BID 90 days metoprolol succinate ER 25 mg PO DAILY spironolactone 25 mg PO DAILY Tobacco use date assessed: 11/11/23 Dental Screening Dental Screen Date: 11/11/23 Did you have a dental visit in the last 12 months?: Yes Did you have a dental problem in the last 6 months where you did not have access to dental care?: No Was dental information given to patient?: Patient has dentist HPI f/u DMII/ CAD HPI Details Patient is a 62 year male here today for a follow-up visit. Patient presents today with his sister. He is auditory impaired thus using flag signaler as well. ?Patient has a past medical history significant for CAD with stent placement , smoker, asthma, type 2 diabetes? hyperlipidemia. ? Concern--> family concerned about patient's anger and sometimes erratic behavior. They believe he has a bipolar disorder. Will try to set him up with counseling to get a diagnosis. He is also reporting issues with sleep thus will try a mood stabilizer that can also help with sleep. .. CAD/ heart failure with reduced ejection fraction:? Patient is followed by catalog library assistant and continues on high potency statin anti-platelet therapy.? Patient's lipid panel much improved since previous.? Patient recently gotten echocardiogram with his catalog library assistant showing low- EF 20%. He saw his catalog library assistant recently and Discussion was had for possible ICD placement. .. COPD/pulmonary nodule: Per patient he reports he quit smoking. He has seen a bsw. Still has a mild cough and wheeze daily.? He reports he uses his inhalers on a p.r.n. basis which does help. .. Type 2 diabetes:? His diabetes is suboptimally controlled. Today's A1c at 7.8 from 9.0. Has restarted metformin, takes Farxiga daily. [facility] Medical History (Updated 11/11/23 @ 12:02 by Eder Altman PA-C) Tobacco dependence Asthma Grade II diastolic dysfunction Mitral regurgitation Aortic regurgitation HFrEF (heart failure with reduced ejection fraction) COPD (chronic obstructive pulmonary disease) High blood cholesterol level Chest pressure Shortness of breath at rest Physical exam Heart problem KAITLYN (obstructive sleep apnea) Insomnia Hyperlipidemia Deaf, nonspeaking Asthma Surgical History History of cardiac catheterization History of cholecystectomy Family History Father No problems noted. Mother Diabetes Sister Diabetes High cholesterol Social History Housing: Apartment Alcohol intake: current Alcohol intake frequency: holidays/special occasions only Alcohol type: beer Patient Tobacco Use Status: Former Tobacco user Tobacco use type: Cigarette Cigarettes Per Day: 1 e-Cigarette/Vaping Use: Never Used service: No Current occupational status: disabled Cognitive needs: No Hearing needs: Yes Vision needs: Yes Questionnaire PHQ-9 Over the last 2 weeks, how often have you been bothered by any of the following problems? 1. Little interest or pleasure in doing things: not at all 2. Feeling down, depressed, or hopeless: not at all 3. Trouble falling or staying asleep, or sleeping too much: not at all 4. Feeling tired or having little energy: not at all 5. Poor appetite or overeating: not at all 6. Feeling bad about yourself - or that you are a failure or have let yourself or your family down: not at all 7. Trouble concentrating on things, such as reading the newspaper or watching television: not at all 8. Moving or speaking so slowly that other people could have noticed. Or the opposite - being so fidgety or restless that you have been moving around a lot more than usual: not at all 9. Thoughts that you would be better off or of hurting yourself in some way: not at all Total score: 0 Depression Screening Interpretation: Negative Depression Screening Done: Yes 76052 - PHQ-9 Billing: Yes Source: Developed by Drs. Demond Rodarte, Beverly Estrada, Regan Rubio and colleagues, with an educational nanda from [employer]. Thrive Questionnaire Date Thrive assessed: 11/11/23 I am a: Patient What is your living situation today?: I have a steady place to live Within the past 12 months, did the food you bought not last and you didn't have the money to get more?: Never true Within the past 12 months, did you worry whether your food would run out before you got money to buy more?: Never true Do you have trouble paying for medicines?: No Do you have trouble getting transportation to medical appointments?: No Do you have trouble paying your heating and electricity bill?: No Do you have trouble taking care of your child, family member or friend?: No Do you have trouble with day-to-day activities such as bathing, preparing meals, shopping, managing finances, etc.?: No Are you currently unemployed and looking for a job?: No Are you interested in more education?: No Please select the resources that you would like help with: None Currently or been in a relationship where the following occur: no concerns reported THRIVE Score: 0 AUDIT C Alcohol Use Questionnaire (AUDIT-C) 1. How often do you have a drink containing alcohol?: Monthly or less 2. How many drinks containing alcohol do you have on a typical day when you are drinking?: 1 or 2 3. How often do you have six or more drinks on one occasion?: Never Total Score: 1 RACHEL-7 AMB Questionnaire RACHEL-7 Date RACHEL - 7 assessed: 11/11/23 Feeling nervous, anxious, or on edge: 0 = Not at all Not being able to stop or control worryin = Not at all Worrying too much about different things: 0 = Not at all Trouble relaxin = Not at all Being so restless that it is hard to sit still: 0 = Not at all Becoming easily annoyed or irritable: 0 = Not at all Feeling afraid as if something awful might happen: 0 = Not at all Total RACHEL-7 score (0-4 normal; 5-9 mild; 10-14 moderate; 15-21 severe): 0 Source: Developed by Drs. Demond Rodarte, Beverly Estrada, Regan Rubio and colleagues, with an educational nanda from [employer]. RACHEL-7 Assessment Billing RACHEL-7 Assessment Tool: RACHEL-7 Assessment 20798 Review of Systems Const Denies headache(s) Eyes Denies loss of vision ENT Denies vertigo, Denies dizziness, Denies headache(s) and Denies sore throat Card Denies chest pain, Denies leg edema and Denies lightheadedness Resp Denies cough, Denies hemoptysis and Denies wheezing GI Denies abdominal pain, Denies melena, Denies constipation, Denies diarrhea and Denies vomiting Denies dysuria, Denies urinary frequency and Denies urinary urgency Musc Denies arthralgias, Denies joint swelling, Denies numbness and Denies tingling Neuro Denies Abnormal speech present, Denies behavioral changes, Denies vertigo, Denies dizziness, Denies headache(s), Denies loss of vision, Denies memory loss, Denies numbness and Denies tingling Psych Denies anxiety, Denies behavioral changes, Denies depression, Denies memory loss and Denies panic attacks Luis/Lymph Denies easy bleeding and Denies easy bruising Aller/Immun Denies wheezing Physical exam (Primary Care) Vital Signs: Last Vital Signs Pulse 89 11/11/23 11:21 BP 100/66 11/11/23 11:21 Pulse Ox 98 11/11/23 11:21 Oxygen Delivery Method Room Air 11/11/23 11:21 BMI result Body Mass Index 25.5 Tobacco/Smoking Status: Tobacco use Status Tobacco use date assessed 11/11/23 11/11/23 11:23 Patient Tobacco Use Status Former Tobacco user 11/11/23 11:23 Tobacco use type Cigarette 11/11/23 11:23 e-Cigarette/Vaping Use Never Used 11/11/23 11:23 PHQ-9: PHQ-9 Score PHQ-9: Total score 0 11/11/23 11:40 Depression Screening Interpretation: Negative Thrive Assessment: Date of Thrive Assessment Date Thrive assessed 11/11/23 11/11/23 11:23 Currently or been in a relationship where the following occur: no concerns reported Const General: healthy appearing, no acute distress, alert and awake Nutritional Appearance: well nourished Orientation/consciousness: oriented to person, oriented to place and oriented to time HENMT Ears: TM's normal bilaterally General nose exam: Normal nasal mucous membranes and turbinates present Eyes Conjunctivae: conjunctivae normal Sclerae: sclerae normal Pupils: Equal, round and reactive pupils present Neck Neck: Yes no lymphadenopathy and Yes no JVD Thyroid: Thyroid normal Carotids: no bruits Resp Effort & Inspection: normal respiratory effort and not tachypneic Auscultation: no crackles, no rales, no rhonchi and no wheezes Cardio Rate: regular rate Rhythm: regular rhythm Heart sounds: no murmurs and normal S1 and S2 GI Palpation (GI): Soft to palpation, nontender, no hepatomegaly and no splenomegaly Auscultation: normal bowel sounds Skin General skin exam: no rashes or lesions noted and dry skin Neuro General: oriented to person, oriented to place and oriented to time Cranial nerves: Yes Equal, round and reactive pupils present Speech: No Abnormal speech present Gait exam (Neuro): Normal gait present Motor exam (neuro): no tremor noted Extrem Right upper extremity: full ROM Left upper extremity: full ROM Right lower extremity: full ROM; no edema Left lower extremity: full ROM; no edema Psych Mental Status: mental status grossly normal Speech and movement: Normal speech and movement present Affect: normal affect Attitude: cooperative Thought process: Normal thought process present Results AMB Hemoglobin A1c AMB Hemoglobin A1c 7.8 % Last Edit by Jared Barrientos on 11/11/23 11:38 Results Reviewed Results Reviewed: Laboratory Last Values Hgb A1c (Clinic) 7.8 % (4.0-6.0) H 11/11/23 11:23 Assessment and Plan Assessment & Plan (1) HFrEF (heart failure with reduced ejection fraction): Comment: EF 20-25% Code(s): I50.20 - Unspecified systolic (congestive) heart failure Plan: Clinically euvolemic on exam. Currently has been feeling well without any acute Congestive heart failure exacerbations. He has followed up with his catalog library assistant whom recommends an ICD placement and patient is agreeing. . Continue spironolactone 25mg, farxiga 10mg, losartan 25mg. Blood pressures well controlled. Echocardiogram reviewed showing significantly reduced LV systolic fx with EF 20-25% and grade II diastolic dysfunction. He has stopped smoking. Recommend low sodium diet and fluid restrictions to 1.2L. 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 Today's A1c 7.8 from 9.0. Has restarted taking metformin. . Advised to continue starting Farxiga as it has benefit and Congestive heart failure with reduced ejection fraction. Goal A1c is to be below 7.0 (3) Pulmonary nodule 1 cm or greater in diameter: Comment: PATIENT DOES HAVE MULTIPLE SMALL CALCIFIED GRANULOMAS, IN BOTH LUNGS. THESE ARE CONSIDERED BENIGN. ONE NODULE 1X0.8 CM IN LEFT LOWER LOBE DESCRIBED ABOVE. HE REPEAT CT SCAN AT 3 MONTHS INTERVAL WAS RECOMMENDED. SO I WILL BE ORDERING A EASE CT SCAN TODAY. Code(s): R91.1 - Solitary pulmonary nodule Plan: 1.0cm solid nodule seen on chest CTA. Pulmology consult placed with recommendation for repeat chest CT 3-6 months. Smoking cessation strongly encouraged. (4) CAD (coronary artery disease): Code(s): I25.10 - Atherosclerotic heart disease of [place] coronary artery without angina pectoris Qualifiers: Associated angina: with stable angina Coronary Disease-Associated Artery/Lesion type: [place] artery [place] vs. transplanted heart: [place] heart Qualified Code(s): I25.118 - Atherosclerotic heart disease of [place] coronary artery with other forms of angina pectoris Plan: Continues to follow cardiology. Continues on neural home on all therapy with metoprolol. Most recent echocardiogram showing reduced ejection fraction - 20%. Considerations have been made to place ICD. Most recent lipid panel showing much improved LDL. Goal LDL to be optimally below 70. (5) COPD (chronic obstructive pulmonary disease): Comment: HE DOES HAVE MILD TO MODERATE DEGREE OF CHRONIC OBSTRUCTIVE PULMONARY DISEASE. CURRENTLY SEEMS TO BE WELL CONTROLLED AND STABLE ON COMBIVENT RESPIMAT , USING ONLY P.R.N. ESPECIALLY WHEN HE WALKS AROUND. I ADVISED HIM TO USE 1 INHALATION TID REGULARLY, AND IN BETWEEN HE MIGHT USE EVERY 4-6 HOURS NEEDED. PRESCRIPTION IS RENEWED. * PULMONARY FUNCTION TEST PERFORMED ON 05/16/23 RESULTS C/W MODERATELY SEVERE OBSTRUCTIVE AIRWAY DISORDER. NO RESPONSE TO BDs TX: COMBIVENT RESPIMAT, 1 INHALATION T.I.D.. Code(s): J44.9 - Chronic obstructive pulmonary disease, unspecified Qualifiers: COPD type: emphysema Emphysema type: centrilobular Qualified Code(s): J43.2 - Centrilobular emphysema Plan: Again patient followed by pulmonology. He does use a maintenance inhaler which is helpful for his pulmonary symptoms. He reports he has quit smoking though per pulmonology notes he does smoke 1 cigarette per day (6) Insomnia: Code(s): G47.00 - Insomnia, unspecified Qualifiers: Insomnia type: primary Qualified Code(s): F51.01 - Primary insomnia (7) RACHEL (generalized anxiety disorder): Code(s): F41.1 - Generalized anxiety disorder Plan: Patient's Family concerned about patient's anger and paranoid behavior. They believe he has some kind of mood disorder. Will refer to counseling and start a mood stabilizer to help sleep. Orders: Orders AMB Hemoglobin A1c Today Z13.9 - Encounter for screening, unspecified Referrals Counseling Referral F41.1 - Generalized anxiety disorder, Z13.220 - Encounter for screening for lipoid disorders Medications: New albuterol sulfate 90 mcg/actuation (Ventolin HFA) 1 inh inhalation QID 30 days 8.5 grams 6RF J43.2 - Centrilobular emphysema quetiapine (Seroquel) 25 mg PO BEDTIME 90 days 90 tabs 1RF F51.01 - Primary insomnia Changed From atorvastatin 80 mg PO BEDTIME 90 tabs 2RF I25.118 - Atherosclerotic heart disease of [place] coronary artery with other forms of angina pectoris To atorvastatin 80 mg PO DAILY 90 days 90 tabs 2RF I25.118 - Atherosclerotic heart disease of [place] coronary artery with other forms of angina pectoris Refilled dapagliflozin propanediol (Farxiga) 10 mg PO DAILY 90 days 90 tabs 2RF E11.65 - Type 2 diabetes mellitus with hyperglycemia, I50.20 - Unspecified systolic (congestive) heart failure Coding Level of Care Code Est Pt Level 4 (52589) Diagnoses HFrEF (heart failure with reduced ejection fraction) I50.20 Type 2 diabetes mellitus with hyperglycemia, without long-term current use of insulin E11.65 Diabetes mellitus complication status: with hyperglycemia Diabetes mellitus m[facility]p insulin use: without marine oil terminal superintendent use Pulmonary nodule 1 cm or greater in diameter R91.1 Coronary artery disease of [place] artery of [place] heart with stable angina pectoris I25.118 Associated angina: with stable angina Coronary Disease-Associated Artery/Lesion type: [place] artery [place] vs. transplanted heart: [place] heart Centrilobular emphysema J43.2 COPD type: emphysema Emphysema type: centrilobular Primary insomnia F51.01 Insomnia type: primary RACHEL (generalized anxiety disorder) F41.1 Additional Codes RACHEL-7 Assessment Billing - RACHEL-7 Assessment Tool: RACHEL-7 Assessment [id number] ([id number])
== END 2023-11-11 12:12 | disposition home or self-care (01) ==
PROVIDERS: PCP Physician Assistant; Visit Provider Physician Assistant
DX: I50.20 Unspecified systolic (congestive) heart failure (principal); E11.65 Type 2 diabetes mellitus with hyperglycemia; I25.118 Atherosclerotic heart disease of native coronary artery with other forms of angina pectoris; J43.2 Centrilobular emphysema; F51.01 Primary insomnia; F41.1 Generalized anxiety disorder; Z13.9 Encounter for screening, unspecified
CPT/HCPCS: 83036; 99214

== ENCOUNTER → 2023-12-11 11:03 | Outpatient (REF) | payer OTHER, SELFPAY ==
--- NOTE | 2023-12-11 11:09 | CA_ITS ---
Transthoracic Echocardiogram Patient (Last, First, Middle): Jm Esparza J Gender: Male Date of : 1960 Age: 63 Procedure Date: 12/11/2023 Procedure Type: Transthoracic Echocardiogram Location: OP Height: 167.64 cm Weight: 70. kg BSA: 1.79 m2 Heart Rate: bpm BP: 130 / 60 mmHg Turner Machine: TO Referring MD: Gio Barkley MD American Indian Policy Specialist: Gio Barkley MD Symptoms: I25.5 - Ischemic cardiomyopathy Study Quality: Fair/Contrast Conclusions: - The left ventricular systolic function is severely decreased. The visually estimated ejection fraction is between 20-25%. - The entire septum and apex segment are akinetic. - The basal inferior segment is hypokinetic. - No obvious valvular pathology seen on this study. Findings Procedure Information Contrast agent, definity, is being given per protocol without apparent complications. Left Ventricle Moderately increased left ventricular cavity size. The left ventricular systolic function is severely decreased. The visually estimated ejection fraction is between 20-25%. There is evidence of regional wall motion abnormalities. Evidence suggests grade I (mild) diastolic dysfunction. Wall Motion Rest Echo Findings The basal inferior segment is hypokinetic. The entire septum and apex segment are akinetic. Right Ventricle Normal right ventricular cavity size and systolic function. Atria The left atrium is moderately dilated. The right atrium is normal in size. Aortic Valve There is a normal trileaflet aortic valve. There is mild calcification of the aortic valve. There is no aortic valve stenosis. There is mild aortic valve regurgitation. Mitral Valve The mitral valve appears normal. There is trace mitral valve regurgitation. There is no mitral valve stenosis. Pulmonic Valve The pulmonic valve is likely normal. There is trace pulmonic valve regurgitation. Tricuspid Valve Normal tricuspid valve structure. There is trace tricuspid valve regurgitation. There is no evidence of pulmonary hypertension. Great Vessels The asc aorta and aortic arch are normal in size. Venous The inferior vena cava is normal in size. Pericardium/Pleural There is no evidence of pericardial effusion. Prior Study Comparison No significant change compared to prior study dated: 07/23/2023. Recommendations, Care & Conclusions No obvious valvular pathology seen on this study. Measurements 2D Linear Measurements IVSd: 0.75 0.6-0.9/0.6-1.0 cm LVIDd: 6.38 3.9-5.3/4.2-5.9 cm LVIDd Index: 3.56 2.4-3.2/2.2-3.1 cm/m2 LVIDs: 5.39 2.0-3.6 cm LVPWd: 1.07 0.7-1.1 cm LA Diam: 3.70 2.7-3.8/3.0-4.0 cm LAIDs Index: 2.07 1.5-2.3 cm/m2 LV Mass: 303.34 67-162/88-224 g LV Mass Index: 169.46 43-95/49-115 g/m2 LVOT Diam: 2.10 3.0+(-)1.3 cm 2D Systolic Function EF 4C: 27.30 >55% EF 2C: 38.30 >55% EF BiP: 33.20 >55% Mitral Valve MV VTI: 0.21 MV Pk Gustavo: 1.26 MV Mn Gustavo: 0.80 MV Pk Grad: 6.00 MV Mn Grad: 3.00 MV Pk E: 0.83 MV PK A: 0.97 MV Decel Time: 131.00 E/A: 0.80 E'Lateral: 8.16 E'Medial: 5.44 E/E' Med: 15.20 E/E' Lat: 10.10 PHT: 38.00 MVA PHT: 5.79 MVA Continuity: 3.74 Decel [place]: 6.31 Aortic Valve AoV Pk Gustavo: 1.91 AoV Mn Gustavo: 1.24 AoV VTI: 0.35 AoV Pk Grad: 15.00 Aov Mn Grad: 8.00 ZAIRE Cont.VTI: 2.28 AI Pk Gustavo: 4.10 AI VTI: 1.61 AI [place]: 3.25 AI Alias Gustavo: 0.38 AI RV - PISA: 34.00 ERO - PISA: 21.00 LVOT LVOT Pk Gustavo: 1.13 LVOT Mn Gustavo: 0.76 LVOT VTI: 0.23 LVOT Pk Grad: 5.00 LVOT Mn Grad: 3.00 LVOT Diam: 2.10 LVOT Area: 3.46 Diastolic Function MV Pk E: 0.83 MV Pk A: 0.97 E/A: 0.80 E'Medial: 5.44 E/E' Med: 15.20 E' Laterial: 8.16 E/E' Lat: 10.10 Right Ventricle TAPSE (mm): 20.40 TVS' Gustavo: 13.30 Tricuspid Valve RA Press: 8.00 Great Vessels Aorta Sinus of Valsalva: 3.55 2.0-3.[address] [place]: 3.03 1.7-3.4 cm Ao Asc: 3.50 2.1-3.4 cm Updated in Other Vendor System with Status of Final Waqar Brannon MD electronically signed on 12/13/2023 7:48:32 AM with status of Final
== END ==
LOC: HO.CARD 11:03
PROVIDERS: PCP Physician Assistant; Visit Provider Internal Medicine Cardiovascular Disease
DX: I25.5 Ischemic cardiomyopathy (principal)
CPT/HCPCS: 93306; Q9957

== ENCOUNTER → 2023-12-11 11:09 | Outpatient (BNV) | payer OTHER, SELFPAY | PROVIDERS: PCP Physician Assistant; Visit Provider Internal Medicine | DX: I25.5 Ischemic cardiomyopathy (principal) | CPT/HCPCS: 93306 ==

== ENCOUNTER 2023-12-13 09:22 | Outpatient (AMB) | payer OTHER, SELFPAY ==
[2023-12-13 09:23] VITALS: BP 120/74; PULSE 82; BMI 25.5
--- NOTE | 2023-12-13 09:23 | A.OFFVIS_ITS ---
Intake Vital Signs 12/13/23 09:23 Height 5 ft 6 in Weight 157 lb 13.616 oz BMI 25.5 BP 120/74 Blood Pressure Location Lt brachial Position Sitting Pulse 82 Pulse Source Pulse Oximeter Intake Visit Reasons: 3 month f/u ECHO Psychiatric Orderly Required: Yes Psychiatric Orderly Language: [place] Citizen Sign Language Compensation Vice President: Compensation Vice President Present Allergies No Known Allergies [No Known Allergies*] Allergy (Verified 12/13/23 09:27) Medication List - Last Reconciled 12/13/23 by Felicitas Chester NP-C albuterol sulfate 90 mcg/actuation (Ventolin HFA) 1 inh inhalation QID 30 days aspirin 81 mg PO DAILY atorvastatin 80 mg PO DAILY 90 days baclofen 10 mg PO BID 15 days blood sugar diagnostic (FreeStyle Lite Strips) As directed blood-glucose meter (FreeStyle Lite Meter kit) As directed dapagliflozin propanediol (Farxiga) 10 mg PO DAILY 90 days ipratropium-albuterol 20-100 mcg/actuation (Combivent Respimat) 1 puff PO QID 30 days lancets ([employer] Safety Lancet) As directed lancets (FreeStyle Lancets) As directed losartan 25 mg PO DAILY metformin 1,000 mg PO BID 90 days metoprolol succinate ER 25 mg PO DAILY quetiapine (Seroquel) 25 mg PO BEDTIME 90 days spironolactone 25 mg PO DAILY HPI 3 month f/u ECHO HPI Details Jm is a 63-year-old male with past medical history of smoking, hypertension, hyperlipidemia, diabetes, left bundle branch block, CAD with anterior STEMI and HENRIK to the LAD 2018, nonobstructive disease by catheterization 2020 who presents for follow-up. Today he reports that he has been feeling well with no concerning symptoms. He denies having chest discomfort, shortness of breath, heart palpitations, lightheadedness. Says he feels good. Taking all meds as directed. He was supposed to have a heart procedure yesterday however it was canceled because he had coffee. He describes having an echocardiogram 2 days ago Sister is present. Patient is deaf and certified ux design lead was used. [facility] Medical History Tobacco dependence Asthma Grade II diastolic dysfunction Mitral regurgitation Aortic regurgitation HFrEF (heart failure with reduced ejection fraction) COPD (chronic obstructive pulmonary disease) High blood cholesterol level Chest pressure Shortness of breath at rest Physical exam Heart problem KAITLYN (obstructive sleep apnea) Insomnia Hyperlipidemia Deaf, nonspeaking Asthma Surgical History History of cardiac catheterization History of cholecystectomy Family History Father No problems noted. Mother Diabetes Sister Diabetes High cholesterol Social History Housing: Apartment Alcohol intake: current Alcohol intake frequency: holidays/special occasions only Alcohol type: beer Patient Tobacco Use Status: Former Tobacco user Tobacco use type: Cigarette Cigarettes Per Day: 1 e-Cigarette/Vaping Use: Never Used service: No Current occupational status: disabled Cognitive needs: No Hearing needs: Yes Vision needs: Yes Review of Systems Const All systems reviewed & are unremarkable except as noted in HPI and below ENT Denies dizziness Card Denies chest pain, Denies chest pain at rest, Denies chest pain with activity, Denies rapid heart rate, Denies pedal edema, Denies edema, Denies leg edema, Denies lightheadedness, Denies palpitations, Denies dyspnea, Denies dyspnea on exertion and Denies orthopnea Resp Denies cough, Denies dyspnea and Denies dyspnea on exertion GI Denies hematochezia and Denies change in stool character Musc Denies abnormal gait, Denies limited range of motion, Denies muscle cramps, Denies muscle weakness, Denies numbness, Denies radiating pain into limb, Denies stiffness and Denies tingling Neuro Denies abnormal gait, Denies dizziness, Denies numbness and Denies tingling Endo Denies palpitations Physical Exam Vital Signs: Last Vital Signs Pulse 82 12/13/23 09:23 BP 120/74 12/13/23 09:23 BMI result Body Mass Index 25.5 Const General: cooperative, healthy appearing, comfortable and no acute distress Orientation/consciousness: patient oriented x3 Neck Neck: Yes normal visual inspection Resp Effort & Inspection: normal respiratory effort Auscultation: clear to auscultation bilaterally, no crackles, no rales, no rhonchi and no wheezes Cardio Jugular venous distension: no JVD Rate: regular rate Rhythm: regular rhythm Heart sounds: S1 normal heart sound present, S2 normal heart sound present, no murmurs and no rubs Neuro General: patient oriented x3 Extrem General: Yes normal to inspection Psych Other: Patient is deaf, ux design lead was used Appearance: grossly normal Mental Status: mental status grossly normal Speech and movement: Normal speech and movement present Assessment & Plan Assessment & Plan (1) CAD (coronary artery disease): Code(s): I25.10 - Atherosclerotic heart disease of [place] coronary artery without angina pectoris Qualifiers: Coronary Disease-Associated Artery/Lesion type: [place] artery [place] vs. transplanted heart: [place] heart Associated angina: with stable angina Qualified Code(s): I25.118 - Atherosclerotic heart disease of [place] coronary artery with other forms of angina pectoris Plan: History of CAD with prior anterior STEMI proximal LAD occlusion and HENRIK placed, 12/2018. He did have residual ischemic cardiomyopathy with EF 30-35%. Cardiac catheterization done for chest discomfort 01/06/2021 showed mid LAD stent patent, proximal section 40% stenosis, 1st diagonal 30% stenosis, left circumflex mild disease, RCA mild disease, distally 75% stenosis. Last echo in our system 12/30/2020 showed EF 20-25%. His last prior visit in our office was 12/28/2020. He was lost to follow-up between 12/28/2020 and 05/13/2023. Prior to that Loree visit he was admitted to [facility] with shortness of breath and treated for heart failure with reduced EF, hypoxic respiratory failure, COPD ex acerbation. The echocardiogram from [facility] showed EF 20-25%. [place] [facility] [place] ischemic cardiomyopathy, severe large fixed perfusion defect in the basal to apical anterior septal and inferior septal and inferior mayers. We restarted on appropriate medication management, including aspirin indefinitely. Atorvastatin 80 mg daily, metoprolol XL 25 mg daily, losartan 25 mg daily. On last visit Aldactone was added. Echocardiogram done 07/23/2023 showed EF 20-25%, septum, apex akinetic. Today he tells me that he had a repeat echo done 2 days ago, result is not available in the computer. He also tells me that he was referred to the high school foreign language tutor for a procedure. Notes obtained from Dr. Bautista an ICD is being planned. It was scheduled for yesterday however patient drank coffee and it was canceled. The importance of ICD placement reviewed with him. Informed that with his reduced EF he is at risk for arrhythmia and sudden . On exam he has no signs of decompensated heart failure. No medication changes made today. Vital signs are well controlled. No anginal symptoms reported. Cardiology follow-up in 3 months, sooner if needed. Anticipate ICD to be placed in the near future. Call placed to Dr. Bautista's office and informed that would patient was seen today and they will call him to reschedule ICD. (2) History of coronary artery stent placement: Comment: He presented with anterior STEMI in December 2018. He underwent emergent cardiac catheterization where proximal LAD was occluded which was treated with drug- eluting stent. Code(s): Z95.5 - Presence of coronary angioplasty implant and graft Plan: As above (3) Ischemic cardiomyopathy: Code(s): I25.5 - Ischemic cardiomyopathy Plan: Last known EF 20-25%. ICD to be placed. Currently on losartan and metoprolol for neurohormonal modulation. Labs done 11/08/2023 showed potassium 3.7, creatinine 0.87. Much difficulty with communication today as patient is deaf and diplomatic interpreter/translator used. Psychiatric Orderly states patient would be best suited with a deaf ux design lead which we are arranging for next visit. Plan for medication discussion with patient at that time and consider change to Entresto and metoprolol going forward. (4) HFrEF (heart failure with reduced ejection fraction): Comment: EF 20-25% Code(s): I50.20 - Unspecified systolic (congestive) heart failure Plan: As above (5) LBBB (left bundle branch block): Comment: Chronic and stable Code(s): I44.7 - Left bundle-branch block, unspecified Plan: History of left bundle branch block. Would benefit from Bi V ICD (6) Deaf, nonspeaking: Code(s): H91.3 - Deaf nonspeaking, not elsewhere classified Plan: parts interpreter recommended for visit Plan Time spent on chart review, documentation, interview and assessment Coding Level of Care Code Est Pt Level 4 (53739) Diagnoses Coronary artery disease of [place] artery of [place] heart with stable angina pectoris I25.118 Coronary Disease-Associated Artery/Lesion type: [place] artery [place] vs. transplanted heart: [place] heart Associated angina: with stable angina History of coronary artery stent placement Z95.5 Ischemic cardiomyopathy I25.5 HFrEF (heart failure with reduced ejection fraction) I50.20 LBBB (left bundle branch block) I44.7 Deaf, nonspeaking H91.3 Time Spent (min) 35
== END 2023-12-13 10:19 | disposition home or self-care (01) ==
PROVIDERS: PCP Physician Assistant; Visit Provider Nurse Practitioner Family
DX: I25.118 Atherosclerotic heart disease of native coronary artery with other forms of angina pectoris (principal); Z95.5 Presence of coronary angioplasty implant and graft; I25.5 Ischemic cardiomyopathy; I50.20 Unspecified systolic (congestive) heart failure; I44.7 Left bundle-branch block, unspecified; H91.3 Deaf nonspeaking, not elsewhere classified
CPT/HCPCS: 99214

== ENCOUNTER → 2023-12-13 09:22 | Outpatient (BNVA) | payer OTHER, SELFPAY | PROVIDERS: PCP Physician Assistant; Visit Provider Nurse Practitioner Family | DX: I25.118 Atherosclerotic heart disease of native coronary artery with other forms of angina pectoris (principal); I25.5 Ischemic cardiomyopathy; I44.7 Left bundle-branch block, unspecified; I50.20 Unspecified systolic (congestive) heart failure; H91.3 Deaf nonspeaking, not elsewhere classified; Z95.5 Presence of coronary angioplasty implant and graft | CPT/HCPCS: 99212 ==

== ENCOUNTER 2023-12-20 13:04 | Outpatient (REF) | payer OTHER, SELFPAY ==
[2023-12-20 12:59] LABS: MANUAL DIFF FLAG NO
[2023-12-20 14:00] LABS: Basophils Percent Auto 0.1 % (0-2); Eosinophils Absolute Auto 0.1 X10*3/uL (0.0-0.4); Eosinophils Percent Auto 1.4 % (0-4); Hematocrit 44.1 % (42.0-52.0); Hemoglobin 13.5 g/dl (14.0-18.0); Imm Gran Abs Auto 0.04 X10*3/uL (0.00-0.03); Imm Gran Pct Auto 0.5 % (0.0-0.4); Lymphocytes Absolute Auto 1.4 X10*3/uL (1.2-4.9); Lymphocytes Percent Auto 18.3 % (20-40); Mean Corpuscular HGB Conc 30.6 g/dl (31.0-36.0); Mean Corpuscular Hemoglobin 25.3 pg (27.0-33.0); Mean Corpuscular Volume 82.7 fL (80.0-98.0); Mean Platelet Volume 12.2 fL (9.4-12.4); Monocytes Absolute Auto 0.5 X10*3/uL (0.1-1.2); Neutrophils Absolute Auto 5.8 x10*3/uL (2.0-8.3); Neutrophils Percent Auto 73.7 % (45-73); Platelet Count 302 X10*3/uL (160-400); Red Blood Count 5.33 X10*6/uL (4.60-5.80); Red Cell Distribution Width 14.1 % (11.0-16.0); White Blood Count 7.9 X10*3/uL (4.8-10.8)
[2023-12-20 14:06] LABS: INTERNATIONAL NORM RATIO 0.9 (0.9-1.1); Prothrombin Time 10.6 SEC (11.1-13.3)
[2023-12-20 14:45] LABS: Anion Gap 13 (12-20); Blood Urea Nitrogen 12 mg/dL (9-16); Calcium 10.1 mg/dL (8.4-10.2); Carbon Dioxide 31 mmol/L (22-29); Chloride 104 mmol/L (96-108); Estimated Glomerular Filt Rate > 60; Glucose Random 112 mg/dL (60-115); Potassium 3.7 mmol/L (3.3-5.1); Sodium 144 mmol/L (135-145)
== END 2023-12-20 13:05 | disposition home or self-care (01) ==
LOC: HO.LAB 13:04
PROVIDERS: PCP Physician Assistant; Visit Provider Internal Medicine Cardiovascular Disease
DX: I50.9 Heart failure, unspecified (principal)
CPT/HCPCS: 36415; 80048; 85025; 85610

== ENCOUNTER 2024-01-23 14:25 | Outpatient (AMB) | payer OTHER, SELFPAY ==
[2024-01-23 14:55] VITALS: BP 118/60; PULSE 103; O2SAT 94; BMI 25.5
--- NOTE | 2024-01-23 14:55 | A.OFFVIS_ITS ---
Intake Vital Signs 01/23/24 14:55 Height 5 ft 6 in Weight 158 lb BMI 25.5 BP 118/60 Blood Pressure Location Lt brachial Position Sitting Pulse 103 H Pulse Source Pulse Oximeter Pulse Oximetry (%) 94 Oxygen Delivery Method Room Air Intake Visit Reasons: pulm nodule Intake Note: pt is here for follow up and nice not bad, Interventional Radiology Technologist Required: Yes Interventional Radiology Technologist Name: [id number] Allergies No Known Allergies [No Known Allergies*] Allergy (Verified 01/23/24 16:18) Medication List - Last Reconciled 01/23/24 by Santa Uribe MD albuterol sulfate 90 mcg/actuation (Ventolin HFA) 1 inh inhalation QID 30 days aspirin 81 mg PO DAILY atorvastatin 80 mg PO DAILY 90 days baclofen 10 mg PO BID 15 days blood sugar diagnostic (FreeStyle Lite Strips) As directed blood-glucose meter (FreeStyle Lite Meter kit) As directed dapagliflozin propanediol (Farxiga) 10 mg PO DAILY 90 days ipratropium-albuterol 20-100 mcg/actuation (Combivent Respimat) 1 puff PO QID 30 days lancets ([employer] Safety Lancet) As directed lancets (FreeStyle Lancets) As directed losartan 25 mg PO DAILY metformin 1,000 mg PO BID 90 days metoprolol succinate ER 25 mg PO DAILY quetiapine (Seroquel) 25 mg PO BEDTIME 90 days spironolactone 25 mg PO DAILY Do you need a note to return to daycare/school/sports/work: No HPI pulm nodule HPI Details DIMITRI Felix is 63 years old gentleman dumb and deaf, comes after 4 months for follow-up for his COPD, and lung nodule. Conversation was undertaken with sign language provided by the cylinder die machine helper. The communication was good, and he understood well. Breathing valdez has been doing okay, complains of only occasional cough, no wheezing. He recently had pacemaker installed , in left pectoral area and is doing well. He continues to use Combivent Respimat , 2 to 3 times a day. Denies any active respiratory symptoms at this time. [facility] Medical History Tobacco dependence Asthma Grade II diastolic dysfunction Mitral regurgitation Aortic regurgitation HFrEF (heart failure with reduced ejection fraction) COPD (chronic obstructive pulmonary disease) High blood cholesterol level Chest pressure Shortness of breath at rest Physical exam Heart problem KAITLYN (obstructive sleep apnea) Insomnia Hyperlipidemia Deaf, nonspeaking Asthma Surgical History History of cardiac catheterization History of cholecystectomy Family History Father No problems noted. Mother Diabetes Sister Diabetes High cholesterol Social History Housing: Apartment Alcohol intake: current Alcohol intake frequency: holidays/special occasions only Alcohol type: beer Patient Tobacco Use Status: Former Tobacco user Tobacco use type: Cigarette Cigarettes Per Day: 1 e-Cigarette/Vaping Use: Never Used service: No Current occupational status: disabled Cognitive needs: No Hearing needs: Yes Vision needs: Yes Review of Systems Const All systems reviewed & are unremarkable except as noted in HPI and below Eyes Reports no additional complaints ENT Reports no additional complaints and Denies Normal hearing present (DEAF AND DUMB) Card Denies chest pain, Denies irregular heart rhythm and Denies leg edema Resp Reports as per HPI GI Reports no additional complaints Reports no additional complaints Musc Reports no additional complaints Neuro Denies Normal hearing present (DEAF AND DUMB) Physical Exam Vital Signs: Last Vital Signs Pulse 103 H 01/23/24 14:55 BP 118/60 01/23/24 14:55 Pulse Ox 94 01/23/24 14:55 Oxygen Delivery Method Room Air 01/23/24 14:55 BMI result Body Mass Index 25.5 Const General: healthy appearing, comfortable, no acute distress, alert and awake Orientation/consciousness: patient oriented x3 HEENT Head: Yes normal to inspection General nose exam: No nasal polyps present and No nasal discharge present Face and sinus: Yes sinuses nontender Mouth: oropharynx normal Throat: Yes posterior oropharynx normal Eyes General: appearance normal, both eyes and all related structures Neck Neck: Yes normal visual inspection, Yes no lymphadenopathy, Yes trachea midline and Yes no JVD Thyroid: Thyroid normal Chest Chest palpation & inspection: normal inspection of the chest, normal palpation of entire chest wall, no tenderness and Pacemaker present (Recently installed in left pectoral area) Resp Other: Percussion note resonant, breath sounds are equal on both sides, slightly distant with prolonged expiratory phase. No wheezes rhonchi or crepitations are heard today . Cardio Palpation: normal PMI Rate: regular rate Rhythm: regular rhythm Heart sounds: no gallops and no murmurs GI Palpation (GI): Soft to palpation, nontender, No hepatosplenomegaly present and no masses Auscultation: normal bowel sounds Back/Spine/Pelvis Thoracic/Lumbar Spine: thoracic and lumbar spine normal to inspection Skin General skin exam: no rashes or lesions noted Neuro General: patient oriented x3 and no focal motor deficits Cranial nerves: No Normal hearing present (DEAF AND DUMB) Extrem General: Yes normal to inspection, Yes no clubbing, cyanosis or edema and Yes no calf tenderness Psych Appearance: well kempt Mental Status: mental status grossly normal (Communicated with him via sign language) Speech and movement: Normal speech and movement present Assessment & Plan Assessment & Plan (1) COPD (chronic obstructive pulmonary disease): Comment: HE DOES HAVE MILD TO MODERATE DEGREE OF CHRONIC OBSTRUCTIVE PULMONARY DISEASE. CURRENTLY SEEMS TO BE WELL CONTROLLED AND STABLE ON COMBIVENT RESPIMAT , USING ONLY P.R.N. * PULMONARY FUNCTION TEST PERFORMED ON 05/16/23 RESULTS C/W MODERATELY SEVERE OBSTRUCTIVE AIRWAY DISORDER. NO RESPONSE TO BDs Code(s): J44.9 - Chronic obstructive pulmonary disease, unspecified Qualifiers: COPD type: emphysema Emphysema type: centrilobular Qualified Code(s): J43.2 - Centrilobular emphysema Plan: [place]: COMBIVENT RESPIMAT, 1 INHALATION T.I.D.. ( advise that he should use it 3 times a day ) ALBUTEROL HFA 2 PUFFS Q 6 HOURS P.R.N. (2) Smoker: Comment: He is a long-time smoker, Tony Ex-smoker . Claims that he smoked only a few cigarettes a day , not excessively. He has quit smoking completely since last year. Code(s): F17.200 - Nicotine dependence, unspecified, uncomplicated Plan: Commended for not smoking. Should continue to participate in annual lung screening program. (3) Pulmonary nodule 1 cm or greater in diameter: Comment: PATIENT DOES HAVE MULTIPLE SMALL CALCIFIED GRANULOMAS, IN BOTH LUNGS. THESE ARE CONSIDERED BENIGN. ONE NODULE 1X0.8 CM IN LEFT LOWER LOBE DESCRIBED ABOVE. A REPEAT CT SCAN AT 3 MONTHS INTERVAL WAS RECOMMENDED WHICH WAS PERFORMED IN SEPTEMBER 2023. IMPRESSION : 1. Respiratory motion artifact limits evaluation. 2. Emphysematous changes. Emphysematous changes. Biapical pleural parenchymal scarring. Subpleural cystic changes with reticular nodular opacities. Findings may reflect an element of interstitial lung disease. 3. Multiple calcified granuloma throughout the bilateral lung buchanan the evaluation for noncalcified nodules is limited secondary to respiratory motion. 4. A few mildly prominent though nonenlarged mediastinal lymph nodes are noted the largest in the paratracheal region measuring up to 9 mm in short axis. 5. Cholecystectomy. 6. 9 mm splenule. Code(s): R91.1 - Solitary pulmonary nodule Plan: The CT scan is relatively benign looking . A repeat CT scan after 1 year will be considered. Coding Level of Care Code Est Pt Level 3 (46493) Diagnoses Centrilobular emphysema J43.2 COPD type: emphysema Emphysema type: centrilobular Smoker F17.200 Pulmonary nodule 1 cm or greater in diameter R91.1
== END 2024-01-23 15:15 | disposition home or self-care (01) ==
PROVIDERS: PCP Physician Assistant; Visit Provider Internal Medicine
DX: J43.2 Centrilobular emphysema (principal); F17.200 Nicotine dependence, unspecified, uncomplicated; R91.1 Solitary pulmonary nodule
CPT/HCPCS: 99213

== ENCOUNTER → 2024-01-23 14:25 | Outpatient (BNVA) | payer OTHER, SELFPAY | PROVIDERS: PCP Physician Assistant; Visit Provider Internal Medicine | DX: J43.2 Centrilobular emphysema (principal); R91.1 Solitary pulmonary nodule; F17.210 Nicotine dependence, cigarettes, uncomplicated | CPT/HCPCS: 99212 ==

== ENCOUNTER 2024-02-12 10:19 | Outpatient (AMB) | payer OTHER, SELFPAY ==
--- NOTE | 2024-02-12 10:23 | MHC.PC.OV ---
Vital Signs 02/12/24 10:34 Height 5 ft 6 in Weight 155 lb BMI 25.0 BP 124/64 Blood Pressure Location Lt brachial Position Sitting Pulse 92 Pulse Source Pulse Oximeter Pulse Oximetry (%) 95 Oxygen Delivery Method Room Air Intake Visit Reasons: f/u DMII/ CHF Top Icer Required: Yes Top Icer Language: Sign Languages (macro) Accompanied by: Love Esparza/Sister Allergies No Known Allergies [No Known Allergies*] Allergy (Verified 02/12/24 10:49) Medication List - Last Reconciled 02/12/24 by Eder Altman PA-C albuterol sulfate 90 mcg/actuation (Ventolin HFA) 1 inh inhalation QID 30 days aspirin 81 mg PO DAILY atorvastatin 80 mg PO DAILY 90 days baclofen 10 mg PO BID 15 days blood sugar diagnostic (FreeStyle Lite Strips) As directed blood-glucose meter (FreeStyle Lite Meter kit) As directed dapagliflozin propanediol (Farxiga) 10 mg PO DAILY 90 days ipratropium-albuterol 20-100 mcg/actuation (Combivent Respimat) 1 puff PO QID 30 days lancets (burrp! Safety Lancet) As directed lancets (FreeStyle Lancets) As directed losartan 25 mg PO DAILY metformin 1,000 mg PO BID 90 days metoprolol succinate ER 25 mg PO DAILY quetiapine (Seroquel) 25 mg PO BEDTIME 90 days spironolactone 25 mg PO DAILY Tobacco use date assessed: 11/11/23 Dental Screening Dental Screen Date: 11/11/23 HPI f/u DMII/ CHF HPI Details Patient is a 63 year male here today for a follow-up visit. Patient presents today with his sister. He is auditory impaired thus using sign painter helper as well. ?Patient has a past medical history significant for CAD with stent placement , smoker, asthma, type 2 diabetes? hyperlipidemia. .. CAD/ heart failure with reduced ejection fraction:? Patient is followed by tile roofer and continues on high potency statin anti-platelet therapy.? Patient's lipid panel much improved since previous.? Patient recently gotten echocardiogram with his tile roofer showing low- EF 20%. He saw his tile roofer recently and received an ICD. No overt signs of heart failure .. COPD/pulmonary nodule: Per patient he reports he quit smoking 4 years ago. He has seen a tank stave assembler. He does have pulmonary nodules that appear stable. Will be followed with surveillance CT imaging.? He reports he uses his inhalers on a p.r.n. basis which does help. .. Type 2 diabetes:? His diabetes is suboptimally controlled. Today's A1c at 7.3 from 7.8. He continues with metformin a 1000 b.i.d. and Farxiga 10 mg. PLAN: Will work extensively on dietary modifications to continue reduce his blood sugar. Goal A1c to be below 7.0. Laboratory Tests 11/08/23 11:50 RBC 5.10 Hgb 12.9 L Creatinine 0.87 Fasting Glucose 91 Cholesterol 162 LDL Cholesterol, C alc 97 [facility] Medical History Tobacco dependence Asthma Grade II diastolic dysfunction Mitral regurgitation Aortic regurgitation HFrEF (heart failure with reduced ejection fraction) COPD (chronic obstructive pulmonary disease) High blood cholesterol level Chest pressure Shortness of breath at rest Physical exam Heart problem KAITLYN (obstructive sleep apnea) Insomnia Hyperlipidemia Deaf, nonspeaking Asthma Surgical History History of cardiac catheterization History of cholecystectomy Family History Father No problems noted. Mother Diabetes Sister Diabetes High cholesterol Social History Housing: Apartment Alcohol intake: current Alcohol intake frequency: holidays/special occasions only Alcohol type: beer Patient Tobacco Use Status: Former Tobacco user Tobacco use type: Cigarette Cigarettes Per Day: 1 e-Cigarette/Vaping Use: Never Used service: No Current occupational status: disabled Cognitive needs: No Hearing needs: Yes Vision needs: Yes Questionnaire Thrive Questionnaire Date Thrive assessed: 11/11/23 RACHEL-7 AMB Questionnaire RACHEL-7 Date RACHEL - 7 assessed: 11/11/23 Source: Developed by Drs. Demond Rodarte, Beverly Estrada, Regan Rubio and colleagues, with an educational nanda from [employer]. Review of Systems Const Denies headache(s) Eyes Denies loss of vision ENT Denies vertigo, Denies dizziness, Denies headache(s) and Denies sore throat Card Denies chest pain, Denies leg edema and Denies lightheadedness Resp Denies cough, Denies hemoptysis and Denies wheezing GI Denies abdominal pain, Denies melena, Denies constipation, Denies diarrhea and Denies vomiting Denies dysuria, Denies urinary frequency and Denies urinary urgency Musc Denies arthralgias, Denies joint swelling, Denies numbness and Denies tingling Neuro Denies Abnormal speech present, Denies behavioral changes, Denies vertigo, Denies dizziness, Denies headache(s), Denies loss of vision, Denies memory loss, Denies numbness and Denies tingling Psych Denies anxiety, Denies behavioral changes, Denies depression, Denies memory loss and Denies panic attacks Luis/Lymph Denies easy bleeding and Denies easy bruising Aller/Immun Denies wheezing Physical exam (Primary Care) Vital Signs: Last Vital Signs Pulse 92 02/12/24 10:34 BP 124/64 02/12/24 10:34 Pulse Ox 95 02/12/24 10:34 Oxygen Delivery Method Room Air 02/12/24 10:34 BMI result Body Mass Index 25.0 Tobacco/Smoking Status: Tobacco use Status Tobacco use date assessed 11/11/23 02/12/24 10:23 Patient Tobacco Use Status Former Tobacco user 02/12/24 10:23 Tobacco use type Cigarette 02/12/24 10:23 e-Cigarette/Vaping Use Never Used 02/12/24 10:23 Thrive Assessment: Date of Thrive Assessment Date Thrive assessed 11/11/23 02/12/24 10:23 Const General: healthy appearing, no acute distress, alert and awake Nutritional Appearance: well nourished Orientation/consciousness: oriented to person, oriented to place and oriented to time HENMT Ears: TM's normal bilaterally General nose exam: Normal nasal mucous membranes and turbinates present Eyes Conjunctivae: conjunctivae normal Sclerae: sclerae normal Pupils: Equal, round and reactive pupils present Neck Neck: Yes no lymphadenopathy and Yes no JVD Thyroid: Thyroid normal Carotids: no bruits Resp Effort & Inspection: normal respiratory effort and not tachypneic Auscultation: no crackles, no rales, no rhonchi and no wheezes Cardio Rate: regular rate Rhythm: regular rhythm Heart sounds: no murmurs and normal S1 and S2 GI Palpation (GI): Soft to palpation, nontender, no hepatomegaly and no splenomegaly Auscultation: normal bowel sounds Skin General skin exam: no rashes or lesions noted and dry skin Neuro General: oriented to person, oriented to place and oriented to time Cranial nerves: Yes Equal, round and reactive pupils present Speech: No Abnormal speech present Gait exam (Neuro): Normal gait present Motor exam (neuro): no tremor noted Extrem Right upper extremity: full ROM Left upper extremity: full ROM Right lower extremity: full ROM; no edema Left lower extremity: full ROM; no edema Psych Mental Status: mental status grossly normal Speech and movement: Normal speech and movement present Affect: normal affect Attitude: cooperative Thought process: Normal thought process present Results AMB Hemoglobin A1c AMB Hemoglobin A1c 7.3 % Last Edit by KENNA Lauren on 02/12/24 10:47 AMB Hemoglobin A1c previously reported as 6.1 Nan Chávez 02/12/24 10:47 Results Reviewed Results Reviewed: Laboratory Last Values Hgb A1c (Clinic) 7.3 % (4.0-6.0) H 02/12/24 10:46 Assessment and Plan Assessment & Plan (1) HFrEF (heart failure with reduced ejection fraction): Comment: EF 20-25% Code(s): I50.20 - Unspecified systolic (congestive) heart failure Plan: Clinically euvolemic on exam. Currently has been feeling well without any acute Congestive heart failure exacerbations. Now has a ICD placed and feeling well after placement. . Continue spironolactone 25mg, farxiga 10mg, losartan 25mg. Blood pressures well controlled. Echocardiogram reviewed showing significantly reduced LV systolic fx with EF 20-25% and grade II diastolic dysfunction. He has stopped smoking. (2) DMII (diabetes mellitus, type 2): Code(s): E11.9 - Type 2 diabetes mellitus without complications Qualifiers: Diabetes mellitus complication status: with hyperglycemia Diabetes mellitus roasterman insulin use: without fci use Qualified Code(s): E11.65 - Type 2 diabetes mellitus with hyperglycemia Plan: Patient's type 2 diabetes suboptimally controlled. Today's A1c at 7.3 He continues on metformin a 1000 b.i.d. and Farxiga 10 mg daily . . Will continue to work lifestyle and dietary modifications Goal A1c is to be below 7.0 (3) Pulmonary nodule 1 cm or greater in diameter: Comment: PATIENT DOES HAVE MULTIPLE SMALL CALCIFIED GRANULOMAS, IN BOTH LUNGS. THESE ARE CONSIDERED BENIGN. ONE NODULE 1X0.8 CM IN LEFT LOWER LOBE DESCRIBED ABOVE. A REPEAT CT SCAN AT 3 MONTHS INTERVAL WAS RECOMMENDED WHICH WAS PERFORMED IN SEPTEMBER 2023. IMPRESSION : 1. Respiratory motion artifact limits evaluation. 2. Emphysematous changes. Emphysematous changes. Biapical pleural parenchymal scarring. Subpleural cystic changes with reticular nodular opacities. Findings may reflect an element of interstitial lung disease. 3. Multiple calcified granuloma throughout the bilateral lung buchanan the evaluation for noncalcified nodules is limited secondary to respiratory motion. 4. A few mildly prominent though nonenlarged mediastinal lymph nodes are noted the largest in the paratracheal region measuring up to 9 mm in short axis. 5. Cholecystectomy. 6. 9 mm splenule. Code(s): R91.1 - Solitary pulmonary nodule Plan: 1.0cm solid nodule seen on chest CTA. Continues to follow [place] [facility]ology will be getting CT scans annually . (4) CAD (coronary artery disease): Code(s): I25.10 - Atherosclerotic heart disease of [place] coronary artery without angina pectoris Qualifiers: Associated angina: with stable angina Coronary Disease-Associated Artery/Lesion type: [place] artery [place] vs. transplanted heart: [place] heart Qualified Code(s): I25.118 - Atherosclerotic heart disease of [place] coronary artery with other forms of angina pectoris Plan: Continues to follow cardiology. Continues on neural home on all therapy with metoprolol. Most recent echocardiogram showing reduced ejection fraction - 20%. Has now ICD placed. Most recent lipid panel showing much improved LDL. Goal LDL to be optimally below 70. (5) COPD (chronic obstructive pulmonary disease): Comment: HE DOES HAVE MILD TO MODERATE DEGREE OF CHRONIC OBSTRUCTIVE PULMONARY DISEASE. CURRENTLY SEEMS TO BE WELL CONTROLLED AND STABLE ON COMBIVENT RESPIMAT , USING ONLY P.R.N. * PULMONARY FUNCTION TEST PERFORMED ON 05/16/23 RESULTS C/W MODERATELY SEVERE OBSTRUCTIVE AIRWAY DISORDER. NO RESPONSE TO BDs Code(s): J44.9 - Chronic obstructive pulmonary disease, unspecified Qualifiers: COPD type: emphysema Emphysema type: centrilobular Qualified Code(s): J43.2 - Centrilobular emphysema Plan: Again patient followed by pulmonology. He does use a maintenance inhaler which is helpful for his pulmonary symptoms. He reports he has quit smoking though per pulmonology notes he does smoke 1 cigarette per day (6) History of implantable cardioverter-defibrillator (ICD) placement: Code(s): Z95.810 - Presence of automatic (implantable) cardiac defibrillator Plan: Has ICD placed and doing well. No overt signs of heart failure physical exam today. (7) Deaf, nonspeaking: Code(s): H91.3 - Deaf nonspeaking, not elsewhere classified Plan: Continues to sign, using sign painter helper today in office Orders: Orders Comprehensive [place]. Panel Fast Today E11.65 - Type 2 diabetes mellitus with hyperglycemia AMB Hemoglobin A1c Today E11.65 - Type 2 diabetes mellitus with hyperglycemia Complete Blood Count no Diff Today I35.1 - Nonrheumatic aortic (valve) insufficiency Lipid Panel Today E78.2 - Mixed hyperlipidemia Prostate Specific Antigen Scr Today E78.2 - Mixed hyperlipidemia, Z12.5 - Encounter for screening for malignant neoplasm of prostate Medications: Refilled dapagliflozin propanediol (Farxiga) 10 mg PO DAILY 90 days 90 tabs 2RF E11.65 - Type 2 diabetes mellitus with hyperglycemia, I50.20 - Unspecified systolic (congestive) heart failure Patient Instructions: Goals: Blood pressure to remain below 140/90, goal A1c to be below 7.0 Barriers: Deaf, Adherence to healthy eating habits and physical activity. Coding Level of Care Code Est Pt Level 4 (56844) Diagnoses HFrEF (heart failure with reduced ejection fraction) I50.20 Type 2 diabetes mellitus with hyperglycemia, without long-term current use of insulin E11.65 Diabetes mellitus complication status: with hyperglycemia Diabetes mellitus roasterman insulin use: without roasterman use Pulmonary nodule 1 cm or greater in diameter R91.1 Coronary artery disease of [place] artery of [place] heart with stable angina pectoris I25.118 Associated angina: with stable angina Coronary Disease-Associated Artery/Lesion type: [place] artery [place] vs. transplanted heart: [place] heart Centrilobular emphysema J43.2 COPD type: emphysema Emphysema type: centrilobular History of implantable cardioverter-defibrillator (ICD) placement Z95.810 Deaf, nonspeaking H91.3
[2024-02-12 10:34] VITALS: BP 124/64; PULSE 92; O2SAT 95; BMI 25.0
== END 2024-02-12 11:17 | disposition home or self-care (01) ==
PROVIDERS: PCP Physician Assistant; Visit Provider Physician Assistant
DX: E11.65 Type 2 diabetes mellitus with hyperglycemia (principal); I50.20 Unspecified systolic (congestive) heart failure; I25.118 Atherosclerotic heart disease of native coronary artery with other forms of angina pectoris; J43.2 Centrilobular emphysema; R91.1 Solitary pulmonary nodule; Z95.810 Presence of automatic (implantable) cardiac defibrillator; H91.3 Deaf nonspeaking, not elsewhere classified
CPT/HCPCS: 83036; 99214

== ENCOUNTER 2024-02-25 13:09 | Outpatient (REF) | payer OTHER, SELFPAY | END 2024-02-25 13:10 | disposition home or self-care (01) | LOC: HO.HAP 13:09 | PROVIDERS: Visit Provider Physician Assistant | DX: Z46.2 Encounter for fitting and adjustment of other devices related to nervous system and special senses (principal) | CPT/HCPCS: V5266 ==

== ENCOUNTER 2024-03-17 09:51 | Outpatient (AMB) | payer OTHER, SELFPAY ==
[2024-03-17 09:50] VITALS: BP 124/62; PULSE 94; BMI 26.8
--- NOTE | 2024-03-17 09:50 | A.OFFVIS_ITS ---
Vital Signs 03/17/24 09:50 Height 5 ft 6 in Weight 165 lb 12.602 oz BMI 26.8 BP 124/62 Blood Pressure Location Rt brachial Position Sitting Pulse 94 Pulse Source Pulse Oximeter Intake Visit Reasons: 3 month with Slovak cooper helper Required: Yes Grade Recorder: Grade Recorder Present Accompanied by: Sister Allergies No Known Allergies [No Known Allergies*] Allergy (Verified 03/17/24 09:55) Medication List - Last Reconciled 03/17/24 by Felicitas Chester SITE TECHNICIAN-C albuterol sulfate 90 mcg/actuation (Ventolin HFA) 1 inh inhalation QID 30 days aspirin 81 mg PO DAILY atorvastatin 80 mg PO DAILY 90 days baclofen 10 mg PO BID 15 days blood sugar diagnostic (FreeStyle Lite Strips) As directed blood-glucose meter (FreeStyle Lite Meter kit) As directed dapagliflozin propanediol (Farxiga) 10 mg PO DAILY 90 days ipratropium-albuterol 20-100 mcg/actuation (Combivent Respimat) 1 puff PO QID 30 days lancets ([employer] Safety Lancet) As directed lancets (FreeStyle Lancets) As directed losartan 25 mg PO DAILY metformin 1,000 mg PO BID 90 days metoprolol succinate ER 25 mg PO DAILY quetiapine (Seroquel) 25 mg PO BEDTIME 90 days spironolactone 25 mg PO DAILY HPI HPI 3 month with Slovak ASL: Details: Jm is a 63-year-old male with past medical history of smoking, hypertension, hyperlipidemia, diabetes, left bundle branch block, CAD with anterior STEMI and HENRIK to the LAD 2018, ischemic cardiomyopathy, nonobstructive disease by catheterization 2020 who had Bi V ICD placed 12/24/23 and now presents for follow-up. Today he reports that he has been feeling well overall. He is bothered at times by his ICD and states it causes a pulling sensation in his left neck when he reaches up and tries to brush his hair. He denies having chest discomfort, shortness of breath, heart palpitations, lightheadedness. He has been walking for exercise. He takes his meds as directed but admits to forgetting them at times. Sister is present. Patient is deaf and 2 certified sign language interpreters used. [facility] Medical History ICD (implantable cardioverter-defibrillator) discharge Tobacco dependence Asthma Grade II diastolic dysfunction Mitral regurgitation Aortic regurgitation HFrEF (heart failure with reduced ejection fraction) COPD (chronic obstructive pulmonary disease) High blood cholesterol level Chest pressure Shortness of breath at rest Physical exam Heart problem KAITLYN (obstructive sleep apnea) Insomnia Hyperlipidemia Deaf, nonspeaking Asthma Surgical History History of cardiac catheterization History of cholecystectomy Family History Father No problems noted. Mother Diabetes Sister Diabetes High cholesterol Social History Housing: Apartment Alcohol intake: current Alcohol intake frequency: holidays/special occasions only Alcohol type: beer Patient Tobacco Use Status: Former Tobacco user Tobacco use type: Cigarette Cigarettes Per Day: 1 e-Cigarette/Vaping Use: Never Used service: No Current occupational status: disabled Cognitive needs: No Hearing needs: Yes Vision needs: Yes Review of Systems Const All systems reviewed & are unremarkable except as noted in HPI and below ENT Denies dizziness Card Details: pulling feeling left neck from ICD site. Denies chest pain, Denies chest pain at rest, Denies chest pain with activity, Denies rapid heart rate, Denies pedal edema, Denies edema, Denies leg edema, Denies lightheadedness, Denies palpitations, Denies dyspnea, Denies dyspnea on exertion and Denies orthopnea Resp Denies cough, Denies dyspnea and Denies dyspnea on exertion GI Denies hematochezia and Denies change in stool character Musc Denies abnormal gait, Denies limited range of motion, Denies muscle cramps, Denies muscle weakness, Denies numbness, Denies radiating pain into limb, Denies stiffness and Denies tingling Neuro Denies abnormal gait, Denies dizziness, Denies numbness and Denies tingling Endo Denies palpitations Physical Exam Vital Signs: Last Vital Signs Pulse 94 03/17/24 09:50 BP 124/62 03/17/24 09:50 BMI result Body Mass Index 26.8 Const General: cooperative, healthy appearing, comfortable and no acute distress Orientation/consciousness: patient oriented x3 Neck Neck: Yes normal visual inspection and Yes no JVD Chest Other: ICD site left upper chest benign. Resp Effort & Inspection: normal respiratory effort Auscultation: clear to auscultation bilaterally, no crackles, no rales, no rhonchi and no wheezes Cardio Jugular venous distension: no JVD Rate: regular rate Rhythm: regular rhythm Heart sounds: S1 normal heart sound present, S2 normal heart sound present, no murmurs and no rubs Neuro General: patient oriented x3 Extrem General: Yes normal to inspection, No no pedal edema and No calf tenderness Psych Appearance: grossly normal Mental Status: mental status grossly normal Speech and movement: Normal speech and movement present Office Procedures Cardiac Device Check Cardiac Device Check Details: Medtronic Bi V ICD interrogation today shows battery 7.8 years, DDD mode, low rate 60, atrial threshold 0.5 volts at 0.4 milliseconds, RV threshold 0.5 volts at 0.4 milliseconds, LV threshold 0.875 volts at 0.4 milliseconds, 3 high V rates, no AT/AF therapy settings reviewed, total V paced 97.7% [id number] Cardiac Device Check, multi lead implantable defibrillator Procedure code (CPT) selection complete EKG Details: error - do not bill [id number], Complete Assessment & Plan Assessment & Plan (1) CAD (coronary artery disease): Code(s): I25.10 - Atherosclerotic heart disease of [place] coronary artery without angina pectoris Category: Medical Qualifiers: Coronary Disease-Associated Artery/Lesion type: [place] artery [place] vs. transplanted heart: [place] heart Associated angina: with stable angina Qualified Code(s): I25.118 - Atherosclerotic heart disease of [place] coronary artery with other forms of angina pectoris Plan: History of CAD with anterior STEMI proximal LAD occlusion and HENRIK placed, 12/2018. He is known to have residual ischemic cardiomyopathy. Cardiac catheterization done for chest discomfort 01/06/2021 showed mid LAD stent patent, proximal section 40% stenosis, 1st diagonal 30% stenosis, left circumflex mild disease, RCA mild disease, distally 75% stenosis. Echo in our system 12/30/2020 showed EF 20-25%. He was lost to follow-up between 12/28/2020 and 05/13/2023. He did have a heart failure admission to [facility] April 2023. The echocardiogram from [facility] showed EF 20-25%. Nuclear stress test was done 04/23/2023 at [facility] showing ischemic cardiomyopathy, severe large fixed perfusion defect in the basal to apical anterior septal and inferior septal and inferior mayers. He was put on appropriate medication management, including aspirin ind efinitely. Atorvastatin 80 mg daily, metoprolol XL 25 mg daily, losartan 25 mg daily, Aldactone 25 mg daily. His last echo done 12/11/2023 showed EF 20-25%, ongoing wall motion abnormalities. He was referred for ICD placement. He had a Medtronic Bi V ICD placed on 12/24/[address] Bautista. He does not appear fluid overloaded on examination today. He denies any anginal sounding symptoms. Will continue with med management. His heart rate is elevated in the 90s. Will increase metoprolol XL up to 50 mg daily. Will plan for limited echo prior to next visit. Cardiology follow-up in 3 months, sooner if needed. Will call his pharmacy in [place] for a pill pack to be set up. He is forgetful on his medications at times. (2) History of coronary artery stent placement: Comment: He presented with anterior STEMI in December 2018. He underwent emergent cardiac catheterization where proximal LAD was occluded which was treated with drug- eluting stent. Code(s): Z95.5 - Presence of coronary angioplasty implant and graft Category: Surgical Plan: As above (3) Ischemic cardiomyopathy: Code(s): I25.5 - Ischemic cardiomyopathy Category: Medical Plan: EF has been holding at 20-25% in spite of GDMT. No clinical signs of decompensated heart failure. Continue losartan and metoprolol for neurohormonal modulation. Blood pressure currently 124/62. Will hold off on transition to Entresto at this time. His heart rate is somewhat elevated. Will be increasing his metoprolol 1st. Labs 11/08/2023 showed potassium 3.7, creatinine 0.87. Signs and symptoms of heart failure reviewed with him. Low-salt diet reviewed. Physical activity as tolerated. (4) HFrEF (heart failure with reduced ejection fraction): Comment: EF 20-25% Code(s): I50.20 - Unspecified systolic (congestive) heart failure Category: Medical Plan: As above (5) LBBB (left bundle branch block): Comment: Chronic and stable Code(s): I44.7 - Left bundle-branch block, unspecified Category: Medical Plan: History of left bundle branch block. Now has Bi V ICD (6) Deaf, nonspeaking: Code(s): H91.3 - Deaf nonspeaking, not elsewhere classified Category: Medical Plan: pension manager recommended for visit Plan Time spent on chart review, documentation, interview and assessment Medications: New metoprolol succinate ER 50 mg PO DAILY 30 tabs 5RF Coding Level of Care Code Est Pt Level 4 (76197) Diagnoses Coronary artery disease of [place] artery of [place] heart with stable angina pectoris I25.118 Coronary Disease-Associated Artery/Lesion type: [place] artery [place] vs. transplanted heart: [place] heart Associated angina: with stable angina History of coronary artery stent placement Z95.5 Ischemic cardiomyopathy I25.5 HFrEF (heart failure with reduced ejection fraction) I50.20 LBBB (left bundle branch block) I44.7 Deaf, nonspeaking H91.3 CPT Codes Cardiac Device Check - Cardiac Device 6: [id number] Cardiac Device Check, multi lead implantable defibrillator ([id number]) EKG - CPT: [id number], Complete ([id number]) Time Spent (min) 36
== END 2024-03-17 10:46 | disposition home or self-care (01) ==
LOC: HO.HCS 09:51
PROVIDERS: PCP Physician Assistant; Visit Provider Nurse Practitioner Family
DX: I25.118 Atherosclerotic heart disease of native coronary artery with other forms of angina pectoris (principal); Z95.5 Presence of coronary angioplasty implant and graft; I25.5 Ischemic cardiomyopathy; I50.20 Unspecified systolic (congestive) heart failure; I44.7 Left bundle-branch block, unspecified; H91.3 Deaf nonspeaking, not elsewhere classified
CPT/HCPCS: 93010; 93284; 99214

== ENCOUNTER → 2024-03-17 09:51 | Outpatient (BNVA) | payer OTHER, SELFPAY | PROVIDERS: PCP Physician Assistant; Visit Provider Nurse Practitioner Family | DX: I25.118 Atherosclerotic heart disease of native coronary artery with other forms of angina pectoris (principal); I25.5 Ischemic cardiomyopathy; I50.20 Unspecified systolic (congestive) heart failure; I44.7 Left bundle-branch block, unspecified; H91.3 Deaf nonspeaking, not elsewhere classified; I25.2 Old myocardial infarction; Z79.899 Other long term (current) drug therapy; Z95.5 Presence of coronary angioplasty implant and graft | CPT/HCPCS: 93005; 99212 ==

== ENCOUNTER → 2024-04-08 15:03 | Outpatient (REF) | payer OTHER, SELFPAY ==
--- NOTE | 2024-04-08 15:07 | CA_ITS ---
Transthoracic Echocardiogram Patient (Last, First, Middle): Jm Esparza J Gender: Male Date of : 1960 Age: 63 Procedure Date: 04/08/2024 Procedure Type: Transthoracic Echocardiogram Location: OP Height: 167.64 cm Weight: 70.31 kg BSA: 1.79 m2 Heart Rate: bpm BP: 108 / 58 mmHg Boot Turner: TO Referring MD: Facundo Bautista MD Head Of Advertising: Remington Chappell MD Symptoms: I50.9 CHF I444.7 LBBB I25.10 CAD Study Quality: Fair/Contrast ECG Rhythm: Sinus Conclusions: - 1. Moderately dilated left ventricle with severely reduced LV ejection fraction at 25-30% with underlying regional wall motion abnormality consistent with ischemic cardiomyopathy with impaired relaxation filling pattern with elevated filling pressures 2. Mild aortic regurgitation 3. Normal RV systolic pressure 4. Upper limits of normal ascending aortic size 5. No gross pericardial effusion Findings Procedure Information Contrast agent, definity, is being given per protocol without apparent complications. Left Ventricle Moderately increased left ventricular cavity size. There is normal left ventricular wall thickness. The left ventricular systolic function is severely decreased. The visually estimated ejection fraction is between 25 30%. Spectral Doppler is indicative of an impaired relaxation filling pattern. Elevated filling pressures. E/E prime ratio is >15, consistent with elevated filling pressures. Wall Motion Rest Echo Findings The anterior wall, inferior wall, and entire lateral wall are hypokinetic. The entire septum and apex segment are akinetic. Right Ventricle Normal right ventricular cavity size and systolic function. Atria The left atrium is mildly dilated. There is no evidence of interatrial shunt. The right atrium is normal in size. Aortic Valve Normal aortic valve structure and function. There is no aortic valve stenosis. There is mild aortic valve regurgitation. Mitral Valve There is mild anterior and posterior mitral leaflet thickening. There is trace mitral valve regurgitation. There is no mitral valve stenosis. Pulmonic Valve The pulmonic valve is likely normal. There is trace pulmonic valve regurgitation. Tricuspid Valve Normal tricuspid valve structure. There is trace tricuspid valve regurgitation. The right ventricular systolic pressure is normal. The right ventricular systolic pressure is 22 mmHg. Normal right atrial pressure. There is no evidence of pulmonary hypertension. Great Vessels All visible segments of the aorta are normal in size. The pulmonary artery was not well visualized. Venous The inferior vena cava is normal in size and collapses greater than 50% with inspiration. Pericardium/Pleural There is no evidence of pericardial effusion. Prior Study Comparison No significant change compared to prior study dated: 12/11/2023. Measurements 2D Linear Measurements IVSd: 0.84 0.6-0.9/0.6-1.0 cm LVIDd: 6.58 3.9-5.3/4.2-5.9 cm LVIDd Index: 3.68 2.4-3.2/2.2-3.1 cm/m2 LVIDs: 5.73 2.0-3.6 cm LVPWd: 0.80 0.7-1.1 cm LA Diam: 4.00 2.7-3.8/3.0-4.0 cm LAIDs Index: 2.23 1.5-2.3 cm/m2 LV Mass: 280.08 67-162/88-224 g LV Mass Index: 156.47 43-95/49-115 g/m2 LVOT Diam: 2.20 3.0+(-)1.3 cm 2D Systolic Function EF 4C: 23.20 >55% EF 2C: 34.70 >55% EF BiP: 29.00 >55% Mitral Valve MV Pk E: 0.81 MV PK A: 1.26 MV Decel Time: 166.00 E/A: 0.60 E'Lateral: 5.00 E'Medial: 5.11 E/E' Med: 15.90 E/E' Lat: 16.30 PHT: 49.00 MVA PHT: 4.49 Decel [place]: 4.89 Aortic Valve AoV Pk Gustavo: 1.83 AoV Mn Gustavo: 1.24 AoV VTI: 0.33 AoV Pk Grad: 13.00 Aov Mn Grad: 7.00 ZAIRE Cont.VTI: 2.33 AI Pk Gustavo: 4.11 AI VTI: 1.60 AI [place]: 3.54 LVOT LVOT Pk Gustavo: 1.06 LVOT Mn Gustavo: 0.73 LVOT VTI: 0.20 LVOT Pk Grad: 4.00 LVOT Mn Grad: 2.00 LVOT Diam: 2.20 LVOT Area: 3.80 Diastolic Function MV Pk E: 0.81 MV Pk A: 1.26 E/A: 0.60 E'Medial: 5.11 E/E' Med: 15.90 E' Laterial: 5.00 E/E' Lat: 16.30 Right Ventricle TAPSE (mm): 25.40 TVS' Gustavo: 12.50 Tricuspid Valve TR Pk Gustavo: 2.20 TR Pk Grad: 19.00 RA Press: 3.00 RVSP: 22.00 Great Vessels Aorta Sinus of Valsalva: 3.24 2.0-3.5 cm Ao Asc: 3.60 2.1-3.4 cm Updated in Other Vendor System with Status of Final Remington Chappell MD electronically signed on 04/08/2024 4:59:02 PM with status of Final
== END ==
LOC: HO.CARD 15:03
PROVIDERS: Visit Provider Internal Medicine Cardiovascular Disease
DX: I25.10 Atherosclerotic heart disease of native coronary artery without angina pectoris (principal); I50.9 Heart failure, unspecified; I44.7 Left bundle-branch block, unspecified
CPT/HCPCS: 93306; Q9957

== ENCOUNTER → 2024-04-08 15:07 | Outpatient (BNV) | payer OTHER, SELFPAY | PROVIDERS: Visit Provider Internal Medicine Cardiovascular Disease | DX: I35.1 Nonrheumatic aortic (valve) insufficiency (principal); I25.5 Ischemic cardiomyopathy | CPT/HCPCS: 93306 ==

== ENCOUNTER 2024-07-02 09:24 | Outpatient (AMB) | payer OTHER, SELFPAY ==
[2024-07-02 09:36] VITALS: BP 124/62; PULSE 77; BMI 26.8
--- NOTE | 2024-07-02 09:36 | A.OFFVIS_ITS ---
Vital Signs 07/02/24 09:36 Height 5 ft 6 in Weight 165 lb 12.602 oz BMI 26.8 BP 124/62 Blood Pressure Location Rt brachial Position Sitting Pulse 77 Pulse Source Pulse Oximeter Intake Visit Reasons: 3 mth f/up [place] echo Demolition Worker Required: Yes Demolition Worker Services: Demolition Worker Present Demolition Worker Name: Kamran Mcdonald Broach Grinder: Broach Grinder Present Accompanied by: Sister Allergies No Known Allergies [No Known Allergies*] Allergy (Verified 03/17/24 09:55) Medication List - Last Reconciled 07/02/24 by EMILY Huang albuterol sulfate 90 mcg/actuation (Ventolin HFA) 1 inh inhalation QID 30 days aspirin 81 mg PO DAILY atorvastatin 80 mg PO DAILY 90 days baclofen 10 mg PO BID 15 days blood sugar diagnostic (FreeStyle Lite Strips) As directed blood-glucose meter (FreeStyle Lite Meter kit) As directed dapagliflozin propanediol (Farxiga) 10 mg PO DAILY 90 days ipratropium-albuterol 20-100 mcg/actuation (Combivent Respimat) 1 puff PO QID 30 days lancets (Netstorytouch Delica Safety Lancet) As directed lancets (FreeStyle Lancets) As directed losartan 25 mg PO DAILY metformin 1,000 mg PO BID 90 days metoprolol succinate ER 50 mg PO DAILY quetiapine (Seroquel) 25 mg PO BEDTIME 90 days sennosides (senna) 17.2 mg (2 x 8.6 mg) PO BEDTIME 15 days spironolactone 25 mg PO DAILY HPI HPI 3 mth f/up [place] echo: Details: Jm is a 63-year-old male with past medical history of smoking, hypertension, hyperlipidemia, diabetes, left bundle branch block, CAD with anterior STEMI and HENRIK to the LAD 2018, ischemic cardiomyopathy, nonobstructive disease by catheterization 2020 who had Bi V ICD placed 12/24/23 and who presents for follow-up. Today he reports that he has been feeling well overall. He denies having chest discomfort, shortness of breath, heart palpitations, lightheadedness. He has been walking and cleaning cars for activity/ exercise. He takes his meds as directed and has been doing better with compliance. Sister is present. ICD site is feeling good. Patient is deaf and 2 certified sign language interpreters used. PFSH Medical History ICD (implantable cardioverter-defibrillator) discharge Tobacco dependence Asthma Grade II diastolic dysfunction Mitral regurgitation Aortic regurgitation HFrEF (heart failure with reduced ejection fraction) COPD (chronic obstructive pulmonary disease) High blood cholesterol level Chest pressure Shortness of breath at rest Physical exam Heart problem KAITLYN (obstructive sleep apnea) Insomnia Hyperlipidemia Deaf, nonspeaking Asthma Surgical History History of cardiac catheterization History of cholecystectomy Family History Father No problems noted. Mother Diabetes Sister Diabetes High cholesterol Social History Housing: Apartment Alcohol intake: current Alcohol intake frequency: holidays/special occasions only Alcohol type: beer Patient Tobacco Use Status: Former Tobacco user Tobacco use type: Cigarette Cigarettes Per Day: 1 e-Cigarette/Vaping Use: Never Used service: No Current occupational status: disabled Cognitive needs: No Hearing needs: Yes Vision needs: Yes Review of Systems Const All systems reviewed & are unremarkable except as noted in HPI and below ENT Denies dizziness Card Denies chest pain, Denies chest pain at rest, Denies chest pain with activity, Denies rapid heart rate, Denies pedal edema, Denies edema, Denies leg edema, Denies lightheadedness, Denies palpitations, Denies dyspnea, Denies dyspnea on exertion and Denies orthopnea Resp Denies cough, Denies dyspnea and Denies dyspnea on exertion GI Denies hematochezia and Denies change in stool character Musc Denies abnormal gait, Denies limited range of motion, Denies muscle cramps, Denies muscle weakness, Denies numbness, Denies radiating pain into limb, Denies stiffness and Denies tingling Neuro Denies abnormal gait, Denies dizziness, Denies numbness and Denies tingling Endo Denies palpitations Physical Exam Vital Signs: Last Vital Signs Pulse 77 07/02/24 09:36 BP 124/62 07/02/24 09:36 BMI result Body Mass Index 26.8 Const General: cooperative, healthy appearing, comfortable and no acute distress Orientation/consciousness: patient oriented x3 Neck Neck: Yes normal visual inspection and Yes no JVD Chest Other: ICD site left upper chest benign. Resp Effort & Inspection: normal respiratory effort Auscultation: clear to auscultation bilaterally, no crackles, no rales, no rhonchi and no wheezes Cardio Jugular venous distension: no JVD Rate: regular rate Rhythm: regular rhythm Heart sounds: S1 normal heart sound present, S2 normal heart sound present, no murmurs and no rubs Neuro General: patient oriented x3 Extrem General: Yes normal to inspection, No no pedal edema and No calf tenderness Psych Appearance: grossly normal Mental Status: mental status grossly normal Speech and movement: Normal speech and movement present Office Procedures Cardiac Device Check Cardiac Device Check Details: Medtronic Bi V ICD interrogation today, battery 8.1 years, DDD mode, low rate 60, atrial threshold 0.5 volts at 0.4 milliseconds, RV threshold 0.5 volts at 0.4 milliseconds, LV threshold 1 volt at 0.4 milliseconds total V paced 98.2%, no VT/VF with therapies, activity 2.3 hours per day. [id number]-[id number] Cardiac Device Check, multi lead implantable defibrillator Procedure code (CPT) selection complete Assessment & Plan Assessment & Plan (1) CAD (coronary artery disease): Code(s): I25.10 - Atherosclerotic heart disease of [place] coronary artery without angina pectoris Category: Medical Qualifiers: Associated angina: with stable angina Coronary Disease-Associated Artery/Lesion type: [place] artery [place] vs. transplanted heart: [place] heart Qualified Code(s): I25.118 - Atherosclerotic heart disease of [place] coronary artery with other forms of angina pectoris Plan: History of CAD with anterior STEMI proximal LAD occlusion and HENRIK placed, 12/2018. He is known to have residual ischemic cardiomyopathy. Cardiac catheterization done for chest discomfort 01/06/2021 showed mid LAD stent patent, proximal section 40% stenosis, 1st diagonal 30% stenosis, left circumflex mild disease, RCA mild disease, distally 75% stenosis. Echo in our system 12/30/2020 showed EF 20-25%. He was lost to follow-up between 12/28/2020 and 05/13/2023. He did have a heart failure admission to [facility] April 2023. The echocardiogram from [facility] showed EF 20-25%. Nuclear stress test was done 04/23/2023 at [facility] showing ischemic cardiomyopathy, severe large fixed perfusion defect in the basal to apical anterior septal and inferior septal and inferior mayers. He was put on appropriate medication management, including aspirin indefinitely. Atorvastatin 80 mg daily, metoprolol XL 25 mg daily, losartan 25 mg daily, Aldactone 25 mg daily, [facility]. His echo done 12/11/2023 showed EF 20- 25%, ongoing wall motion abnormalities. He was referred for ICD placement. He had a Medtronic Bi V ICD placed on 12/24/[address] Bautista. A limited echo was due to be done just prior to this visit however it was done in March showing EF 25-30%. Results reviewed with him. Today he reports feeling good with no concerning symptoms. On exam he does not appear fluid overloaded. He denies any anginal sounding symptoms. Will continue with med management. Discussed changing losartan to Entresto however he has even discussing med changes creates much confusion to him. He says he is doing well with pills that he has. Will keep his meds as they are to best ensure compliance. Previously discussed obtaining a pill pack from the pharmacy. He tells me now he does not want a pill pack and does better with the bottles.. Cardiology follow-up in 6 months, sooner if needed. (2) History of coronary artery stent placement: Comment: He presented with anterior STEMI in December 2018. He underwent emergent cardiac catheterization where proximal LAD was occluded which was treated with drug-eluting stent. Code(s): Z95.5 - Presence of coronary angioplasty implant and graft Category: Medical Plan: As above (3) Ischemic cardiomyopathy: Code(s): I25.5 - Ischemic cardiomyopathy Category: Medical Plan: EF has been holding at 20-25% in spite of GDMT. No clinical signs of decompensated heart failure. Continue losartan and metoprolol for neurohormonal modulation. Labs 11/08/2023 showed potassium 3.7, creatinine 0.87. Signs and symptoms of heart failure reviewed with him. Low-salt diet reviewed. Physical activity as tolerated. (4) HFrEF (heart failure with reduced ejection fraction): Comment: EF 20-25% Code(s): I50.20 - Unspecified systolic (congestive) heart failure Category: Medical Plan: As above (5) LBBB (left bundle branch block): Comment: Chronic and stable Code(s): I44.7 - Left bundle-branch block, unspecified Category: Medical Plan: History of left bundle branch block. Now has Bi V ICD (6) Deaf, nonspeaking: Code(s): H91.3 - Deaf nonspeaking, not elsewhere classified Category: Medical Plan: station engineer chief is needed for his visis (7) History of implantable cardioverter-defibrillator (ICD) placement: Code(s): Z95.810 - Presence of automatic (implantable) cardiac defibrillator Category: Medical Plan: Medtronic Bi V ICD interrogation today shows device is functioning normally. No VT or VF, no therapies. Remote monitoring in use. Next office interrogation due in 6 months. Plan Time spent on chart review, documentation, interview and assessment Coding Level of Care Code Est Pt Level 4 (00911) Diagnoses Coronary artery disease of [place] artery of [place] heart with stable angina pectoris I25.118 Associated angina: with stable angina Coronary Disease-Associated Artery/Lesion type: [place] artery [place] vs. transplanted heart: [place] heart History of coronary artery stent placement Z95.5 Ischemic cardiomyopathy I25.5 HFrEF (heart failure with reduced ejection fraction) I50.20 LBBB (left bundle branch block) I44.7 Deaf, nonspeaking H91.3 History of implantable cardioverter-defibrillator (ICD) placement Z95.810 CPT Codes Cardiac Device Check - Cardiac Device 6: [id number] Cardiac Device Check, multi lead implantable defibrillator ([id number]) Time Spent (min) 36
== END 2024-07-02 10:15 | disposition home or self-care (01) ==
PROVIDERS: PCP Physician Assistant; Visit Provider Nurse Practitioner Family
DX: I25.118 Atherosclerotic heart disease of native coronary artery with other forms of angina pectoris (principal); Z95.5 Presence of coronary angioplasty implant and graft; I25.5 Ischemic cardiomyopathy; I50.20 Unspecified systolic (congestive) heart failure; I44.7 Left bundle-branch block, unspecified; H91.3 Deaf nonspeaking, not elsewhere classified; Z95.810 Presence of automatic (implantable) cardiac defibrillator
CPT/HCPCS: 93284; 99214

== ENCOUNTER → 2024-07-02 09:24 | Outpatient (BNVA) | payer OTHER, SELFPAY | PROVIDERS: PCP Physician Assistant; Visit Provider Nurse Practitioner Family | DX: Z45.02 Encounter for adjustment and management of automatic implantable cardiac defibrillator (principal); I25.118 Atherosclerotic heart disease of native coronary artery with other forms of angina pectoris; I25.5 Ischemic cardiomyopathy; I44.7 Left bundle-branch block, unspecified; I50.20 Unspecified systolic (congestive) heart failure; H91.3 Deaf nonspeaking, not elsewhere classified; Z95.5 Presence of coronary angioplasty implant and graft | CPT/HCPCS: 99212 ==

== ENCOUNTER 2024-07-13 14:09 | Outpatient (AMB) | payer OTHER, SELFPAY ==
[2024-07-13 14:12] VITALS: BP 130/74; PULSE 92; O2SAT 93; BMI 26.5
--- NOTE | 2024-07-13 14:12 | MHC.PC.OV ---
Vital Signs 07/13/24 14:12 Height 5 ft 6 in Weight 164 lb BMI 26.5 BP 130/74 Blood Pressure Location Lt brachial Position Sitting Pulse 92 Pulse Source Pulse Oximeter Pulse Oximetry (%) 93 Oxygen Delivery Method Room Air Intake Visit Reasons: F/U DMII HTN Intake Note: Patient is here to follow up on DMII/HTN Stone Rigger Required: No Allergies No Known Allergies [No Known Allergies*] Allergy (Verified 07/13/24 14:32) Medication List - Last Reconciled 07/13/24 by Eder Altman PA-C albuterol sulfate 90 mcg/actuation (Ventolin HFA) 1 inh inhalation QID 30 days aspirin 81 mg PO DAILY atorvastatin 80 mg PO DAILY 90 days baclofen 10 mg PO BID 15 days blood sugar diagnostic (FreeStyle Lite Strips) As directed blood-glucose meter (FreeStyle Lite Meter kit) As directed dapagliflozin propanediol (Farxiga) 10 mg PO DAILY 90 days ipratropium-albuterol 20-100 mcg/actuation (Combivent Respimat) 1 puff PO QID 30 days lancets ([employer] Delica Safety Lancet) As directed lancets (FreeStyle Lancets) As directed losartan 25 mg PO DAILY metformin 1,000 mg PO BID 90 days metoprolol succinate ER 50 mg PO DAILY quetiapine (Seroquel) 25 mg PO BEDTIME 90 days sennosides (senna) 17.2 mg (2 x 8.6 mg) PO BEDTIME 15 days spironolactone 25 mg PO DAILY Tobacco use date assessed: 11/11/23 Dental Screening Dental Screen Date: 11/11/23 HPI F/U DMII HTN HPI Details Patient is a 63 year male here today for a follow-up visit. Patient presents today with his sister. He is auditory impaired thus using fiber design engineer as well. ?Patient has a past medical history significant for CAD with stent placement , smoker, asthma, type 2 diabetes? hyperlipidemia. .. CAD/ heart failure with reduced ejection fraction:? Patient is followed by sed middle school teacher and continues on high potency statin anti-platelet therapy.? Patient's lipid panel much improved since previous.? Patient recently gotten echocardiogram with his sed middle school teacher showing low- EF 20%. He saw his sed middle school teacher recently and received an ICD. No overt signs of heart failure. He reports he has been feeling well .. COPD/pulmonary nodule: Per patient he reports he quit smoking quite awhile ago. He has seen a assistant teaching professor. He does have pulmonary nodules that appear stable. Will be followed with surveillance CT imaging.? He reports he uses his inhalers on a p.r.n. basis which does help. .. Type 2 diabetes:? His diabetes is suboptimally controlled. Today's A1c at 8.3 . He continues with metformin a 1000 b.i.d. and Farxiga 10 mg. PLAN: Will add on a GLP 1 to help with glycemic control. [facility] Medical History ICD (implantable cardioverter-defibrillator) discharge Tobacco dependence Asthma Grade II diastolic dysfunction Mitral regurgitation Aortic regurgitation HFrEF (heart failure with reduced ejection fraction) COPD (chronic obstructive pulmonary disease) High blood cholesterol level Chest pressure Shortness of breath at rest Physical exam Heart problem KAITLYN (obstructive sleep apnea) Insomnia Hyperlipidemia Deaf, nonspeaking Asthma Surgical History History of cardiac catheterization History of cholecystectomy Family History Father No problems noted. Mother Diabetes Sister Diabetes High cholesterol Social History Housing: Apartment Alcohol intake: current Alcohol intake frequency: holidays/special occasions only Alcohol type: beer Patient Tobacco Use Status: Former Tobacco user Tobacco use type: Cigarette Cigarettes Per Day: 1 e-Cigarette/Vaping Use: Never Used service: No Current occupational status: disabled Cognitive needs: No Hearing needs: Yes Vision needs: Yes Questionnaire Thrive Questionnaire Date Thrive assessed: 11/11/23 AUDIT C Alcohol Use Questionnaire (AUDIT-C) 1. How often do you have a drink containing alcohol?: Monthly or less 2. How many drinks containing alcohol do you have on a typical day when you are drinking?: 1 or 2 3. How often do you have six or more drinks on one occasion?: Never Total Score: 1 RACHEL-7 AMB Questionnaire RACHEL-7 Date RACHEL - 7 assessed: 11/11/23 Source: Developed by Drs. Demond Rodarte, Beverly Estrada, Regan Rubio and colleagues, with an educational nanda from [employer]. Review of Systems Const Denies headache(s) Eyes Denies loss of vision ENT Denies vertigo, Denies dizziness, Denies headache(s) and Denies sore throat Card Denies chest pain, Denies leg edema and Denies lightheadedness Resp Denies cough, Denies hemoptysis and Denies wheezing GI Denies abdominal pain, Denies melena, Denies constipation, Denies diarrhea and Denies vomiting Denies dysuria, Denies urinary frequency and Denies urinary urgency Musc Denies arthralgias, Denies joint swelling, Denies numbness and Denies tingling Neuro Denies Abnormal speech present, Denies behavioral changes, Denies vertigo, Denies dizziness, Denies headache(s), Denies loss of vision, Denies memory loss, Denies numbness and Denies tingling Psych Denies anxiety, Denies behavioral changes, Denies depression, Denies memory loss and Denies panic attacks Luis/Lymph Denies easy bleeding and Denies easy bruising Aller/Immun Denies wheezing Physical exam (Primary Care) Vital Signs: Last Vital Signs Pulse 92 07/13/24 14:12 BP 130/74 07/13/24 14:12 Pulse Ox 93 07/13/24 14:12 Oxygen Delivery Method Room Air 07/13/24 14:12 BMI result Body Mass Index 26.5 Tobacco/Smoking Status: Tobacco use Status Tobacco use date assessed 11/11/23 07/13/24 14:12 Patient Tobacco Use Status Former Tobacco user 07/13/24 14:12 Tobacco use type Cigarette 07/13/24 14:12 e-Cigarette/Vaping Use Never Used 07/13/24 14:12 Thrive Assessment: Date of Thrive Assessment Date Thrive assessed 11/11/23 07/13/24 14:12 Const General: healthy appearing, no acute distress, alert and awake Nutritional Appearance: well nourished Orientation/consciousness: oriented to person, oriented to place and oriented to time HENMT Ears: TM's normal bilaterally General nose exam: Normal nasal mucous membranes and turbinates present Eyes Conjunctivae: conjunctivae normal Sclerae: sclerae normal Pupils: Equal, round and reactive pupils present Neck Neck: Yes no lymphadenopathy and Yes no JVD Thyroid: Thyroid normal Carotids: no bruits Resp Effort & Inspection: normal respiratory effort and not tachypneic Auscultation: no crackles, no rales, no rhonchi and no wheezes Cardio Rate: regular rate Rhythm: regular rhythm Heart sounds: no murmurs and normal S1 and S2 GI Palpation (GI): Soft to palpation, nontender, no hepatomegaly and no splenomegaly Auscultation: normal bowel sounds Skin General skin exam: no rashes or lesions noted and dry skin Neuro General: oriented to person, oriented to place and oriented to time Cranial nerves: Yes Equal, round and reactive pupils present Speech: No Abnormal speech present Gait exam (Neuro): Normal gait present Motor exam (neuro): no tremor noted Extrem Right upper extremity: full ROM Left upper extremity: full ROM Right lower extremity: full ROM; no edema Left lower extremity: full ROM; no edema Psych Mental Status: mental status grossly normal Speech and movement: Normal speech and movement present Affect: normal affect Attitude: cooperative Thought process: Normal thought process present Results AMB Hemoglobin A1c AMB Hemoglobin A1c 8.3 % Last Edit by PAULA Mar on 07/13/24 14:30 Results Reviewed Results Reviewed: Laboratory Last Values Hgb A1c (Clinic) 8.3 % (4.0-6.0) H 07/13/24 14:18 Assessment and Plan Assessment & Plan (1) HFrEF (heart failure with reduced ejection fraction): Comment: EF 20-25% Code(s): I50.20 - Unspecified systolic (congestive) heart failure Plan: Clinically euvolemic on exam. Currently has been feeling well without any acute Congestive heart failure exacerbations. Now has a ICD placed and feeling well after placement. . Continue spironolactone 25mg, farxiga 10mg, losartan 25mg. Blood pressures well controlled. Echocardiogram reviewed showing significantly reduced LV systolic fx with EF 20-25% and grade II diastolic dysfunction. Patient now has ICD in place and doing well. (2) DMII (diabetes mellitus, type 2): Code(s): E11.9 - Type 2 diabetes mellitus without complications Qualifiers: Diabetes mellitus complication status: with hyperglycemia Diabetes mellitus correction insulin use: without correction use Qualified Code(s): E11.65 - Type 2 diabetes mellitus with hyperglycemia Plan: Patient's type 2 diabetes suboptimally controlled. Today's A1c at 8.3 from 7.3. He continues on metformin a 1000 b.i.d. and Farxiga 10 mg daily. Will add on a GLP 1 for better glycemic control . . Will continue to work lifestyle and dietary modifications Goal A1c is to be below 7.0 (3) CAD (coronary artery disease): Code(s): I25.10 - Atherosclerotic heart disease of [place] coronary artery without angina pectoris Qualifiers: Associated angina: with stable angina Coronary Disease-Associated Artery/Lesion type: [place] artery [place] vs. transplanted heart: [place] heart Qualified Code(s): I25.118 - Atherosclerotic heart disease of [place] coronary artery with other forms of angina pectoris Plan: Continues to follow cardiology. Continues on neural home on all therapy with metoprolol. Most recent echocardiogram showing reduced ejection fraction - 20%. Has now ICD placed. Most recent lipid panel showing much improved LDL. Goal LDL to be optimally below 70. (4) COPD (chronic obstructive pulmonary disease): Comment: HE DOES HAVE MILD TO MODERATE DEGREE OF CHRONIC OBSTRUCTIVE PULMONARY DISEASE. CURRENTLY SEEMS TO BE WELL CONTROLLED AND STABLE ON COMBIVENT RESPIMAT , USING ONLY P.R.N. * PULMONARY FUNCTION TEST PERFORMED ON 05/16/23 RESULTS C/W MODERATELY SEVERE OBSTRUCTIVE AIRWAY DISORDER. NO RESPONSE TO BDs Code(s): J44.9 - Chronic obstructive pulmonary disease, unspecified Qualifiers: COPD type: emphysema Emphysema type: centrilobular Qualified Code(s): J43.2 - Centrilobular emphysema Plan: Again patient followed by pulmonology. He does use a maintenance inhaler which is helpful for his pulmonary symptoms. He reports he has quit smoking though per pulmonology notes he does smoke 1 cigarette per day (5) History of implantable cardioverter-defibrillator (ICD) placement: Code(s): Z95.810 - Presence of automatic (implantable) cardiac defibrillator Plan: Has ICD placed and doing well. No overt signs of heart failure physical exam today. (6) Deaf, nonspeaking: Code(s): H91.3 - Deaf nonspeaking, not elsewhere classified Plan: Continues to sign, using fiber design engineer today in office Orders: Orders AMB Hemoglobin A1c Today E11.65 - Type 2 diabetes mellitus with hyperglycemia Medications: New semaglutide (Ozempic) for 4 weeks 0.25 mg (0.368 mL) subcut QWEEK 3 mL 0RF 4 weeks E11.65 - Type 2 diabetes mellitus with hyperglycemia Refilled metformin 1,000 mg PO BID 180 tabs 3RF 90 days E11.65 - Type 2 diabetes mellitus with hyperglycemia dapagliflozin propanediol (Farxiga) 10 mg PO DAILY 90 tabs 3RF 90 days E11.65 - Type 2 diabetes mellitus with hyperglycemia, I50.20 - Unspecified systolic (congestive) heart failure Patient Instructions: Goal: Blood pressure to be below 140/90, A1c to be below 7.0 Barriers: Adherence to physical activity and healthy eating habits Coding Level of Care Code Est Pt Level 4 (64999) Diagnoses HFrEF (heart failure with reduced ejection fraction) I50.20 Type 2 diabetes mellitus with hyperglycemia, without long-term current use of insulin E11.65 Diabetes mellitus complication status: with hyperglycemia Diabetes mellitus terminal gauger insulin use: without correction use Coronary artery disease of [place] artery of [place] heart with stable angina pectoris I25.118 Associated angina: with stable angina Coronary Disease-Associated Artery/Lesion type: [place] artery [place] vs. transplanted heart: [place] heart Centrilobular emphysema J43.2 COPD type: emphysema Emphysema type: centrilobular History of implantable cardioverter-defibrillator (ICD) placement Z95.810 Deaf, nonspeaking H91.3
== END 2024-07-13 14:54 | disposition home or self-care (01) ==
PROVIDERS: PCP Physician Assistant; Visit Provider Physician Assistant
DX: I50.20 Unspecified systolic (congestive) heart failure (principal); E11.65 Type 2 diabetes mellitus with hyperglycemia; I25.118 Atherosclerotic heart disease of native coronary artery with other forms of angina pectoris; J43.2 Centrilobular emphysema; Z95.810 Presence of automatic (implantable) cardiac defibrillator; H91.3 Deaf nonspeaking, not elsewhere classified

== ENCOUNTER → 2024-07-13 14:09 | Outpatient (BNVA) | payer OTHER, SELFPAY | PROVIDERS: PCP Physician Assistant; Visit Provider Physician Assistant | DX: E11.65 Type 2 diabetes mellitus with hyperglycemia (principal); I50.20 Unspecified systolic (congestive) heart failure; I25.118 Atherosclerotic heart disease of native coronary artery with other forms of angina pectoris; J43.2 Centrilobular emphysema; H91.3 Deaf nonspeaking, not elsewhere classified; Z95.810 Presence of automatic (implantable) cardiac defibrillator; Z79.85 Long-term (current) use of injectable non-insulin antidiabetic drugs | CPT/HCPCS: 83036; 99212 ==

== ENCOUNTER 2024-07-28 14:26 | Outpatient (AMB) | payer OTHER, SELFPAY ==
[2024-07-28 14:48] VITALS: BP 120/60; PULSE 98; O2SAT 95; BMI 27.6
--- NOTE | 2024-07-28 14:48 | MHC.OFFVIS ---
Vital Signs 07/28/24 14:48 Height 5 ft 6 in Weight 170 lb 13.732 oz BMI 27.6 BP 120/60 Blood Pressure Location Lt brachial Position Sitting Pulse 98 Pulse Source Pulse Oximeter Pulse Oximetry (%) 95 Oxygen Delivery Method Room Air Intake Visit Reasons: Pulm Nodule Intake Note: pt is here for follow up and states he is good. Director Dental Services Required: Yes Director Dental Services Services: Director Dental Services Present Director Dental Services Name: [id number] gato Allergies No Known Allergies [No Known Allergies*] Allergy (Verified 07/28/24 15:09) Medication List - Last Reconciled 07/28/24 by Santa Uribe MD albuterol sulfate 90 mcg/actuation (Ventolin HFA) 1 inh inhalation QID 30 days aspirin 81 mg PO DAILY atorvastatin 80 mg PO DAILY 90 days baclofen 10 mg PO BID 15 days blood sugar diagnostic (FreeStyle Lite Strips) As directed blood-glucose meter (FreeStyle Lite Meter kit) As directed dapagliflozin propanediol (Farxiga) 10 mg PO DAILY 90 days ipratropium-albuterol 20-100 mcg/actuation (Combivent Respimat) 1 puff PO QID 30 days lancets ([employer] Delica Safety Lancet) As directed lancets (FreeStyle Lancets) As directed losartan 25 mg PO DAILY metformin 1,000 mg PO BID 90 days metoprolol succinate ER 50 mg PO DAILY quetiapine (Seroquel) 25 mg PO BEDTIME 90 days semaglutide (Ozempic) 0.25 mg (0.368 mL) subcut QWEEK 4 weeks sennosides (senna) 17.2 mg (2 x 8.6 mg) PO BEDTIME 15 days spironolactone 25 mg PO DAILY Do you need a note to return to daycare/school/sports/work: No HPI HPI Pulm Nodule: Details: DIMITRI Felix IS 63 YEARS OLD DEAF AND DUMB, VERY PLEASANT GENTLEMAN. WHO COMMUNICATES WITH SIGN LANGUAGE. HE IS HERE FOR FOLLOW-UP AFTER 6 MONTHS FOR HIS MILD COPD. HE IS ON COMBIVENT RESPIMAT 1 INHALATION T.I.D., WHICH HE HAS BEEN USING REGULARLY. HE CLAIMS THAT HIS BREATHING HAS BEEN GOOD AND HE DOES NOT NEED TO USE THE RESCUE INHALER LUCKILY HE HAS HAD NO CHEST INFECTION. HE IS NONSMOKER, EXCEPT FOR MAYBE 1 CIGARETTE A DAY OFF AND ON. [facility] Medical History ICD (implantable cardioverter-defibrillator) discharge Tobacco dependence Asthma Grade II diastolic dysfunction Mitral regurgitation Aortic regurgitation HFrEF (heart failure with reduced ejection fraction) COPD (chronic obstructive pulmonary disease) High blood cholesterol level Chest pressure Shortness of breath at rest Physical exam Heart problem KAITLYN (obstructive sleep apnea) Insomnia Hyperlipidemia Deaf, nonspeaking Asthma Surgical History History of cardiac catheterization History of cholecystectomy Family History Father No problems noted. Mother Diabetes Sister Diabetes High cholesterol Social History Housing: Apartment Alcohol intake: current Alcohol intake frequency: holidays/special occasions only Alcohol type: beer Patient Tobacco Use Status: Former Tobacco user Tobacco use type: Cigarette Cigarettes Per Day: 1 e-Cigarette/Vaping Use: Never Used service: No Current occupational status: disabled Cognitive needs: No Hearing needs: Yes Vision needs: Yes Review of Systems Const All systems reviewed & are unremarkable except as noted in HPI and below Eyes Reports no additional complaints ENT Reports no additional complaints and Denies Normal hearing present (DEAF AND DUMB) Card Denies chest pain, Denies irregular heart rhythm and Denies leg edema Resp Reports as per HPI GI Reports no additional complaints Reports no additional complaints Musc Reports no additional complaints Neuro Denies Normal hearing present (DEAF AND DUMB) Physical Exam Vital Signs: Last Vital Signs Pulse 98 07/28/24 14:48 BP 120/60 07/28/24 14:48 Pulse Ox 95 07/28/24 14:48 Oxygen Delivery Method Room Air 07/28/24 14:48 BMI result Body Mass Index 27.6 Const General: healthy appearing, comfortable, no acute distress, alert and awake Orientation/consciousness: patient oriented x3 HEENT Head: Yes normal to inspection General nose exam: No nasal polyps present and No nasal discharge present Face and sinus: Yes sinuses nontender Mouth: oropharynx normal Throat: Yes posterior oropharynx normal Eyes General: appearance normal, both eyes and all related structures Neck Neck: Yes normal visual inspection, Yes no lymphadenopathy, Yes trachea midline and Yes no JVD Thyroid: Thyroid normal Chest Chest palpation & inspection: normal inspection of the chest, normal palpation of entire chest wall, no tenderness and Pacemaker present (Recently installed in left pectoral area) Resp Other: Percussion note resonant, breath sounds are equal on both sides, slightly distant with prolonged expiratory phase. No wheezes rhonchi or crepitations are heard today . Cardio Palpation: normal PMI Rate: regular rate Rhythm: regular rhythm Heart sounds: no gallops and no murmurs GI Palpation (GI): Soft to palpation, nontender, No hepatosplenomegaly present and no masses Auscultation: normal bowel sounds Back/Spine/Pelvis Thoracic/Lumbar Spine: thoracic and lumbar spine normal to inspection Skin General skin exam: no rashes or lesions noted Neuro General: patient oriented x3 and no focal motor deficits Cranial nerves: No Normal hearing present (DEAF AND DUMB) Extrem General: Yes normal to inspection, Yes no clubbing, cyanosis or edema and Yes no calf tenderness Psych Appearance: well kempt Mental Status: mental status grossly normal (Communicated with him via sign language) Speech and movement: Normal speech and movement present Assessment & Plan Assessment & Plan (1) COPD (chronic obstructive pulmonary disease): Comment: HE DOES HAVE MILD TO MODERATE DEGREE OF CHRONIC OBSTRUCTIVE PULMONARY DISEASE. CURRENTLY SEEMS TO BE WELL CONTROLLED AND STABLE ON COMBIVENT RESPIMAT , USING ONLY P.R.N. * PULMONARY FUNCTION TEST PERFORMED ON 05/16/23 RESULTS C/W MODERATELY SEVERE OBSTRUCTIVE AIRWAY DISORDER. NO RESPONSE TO BDs Code(s): J44.9 - Chronic obstructive pulmonary disease, unspecified Category: Medical Qualifiers: COPD type: emphysema Emphysema type: centrilobular Qualified Code(s): J43.2 - Centrilobular emphysema Plan: CONTINUE USING COMBIVENT RESPIMAT 1 INHALATION T.I.D. . BUT IF SYMPTOMS ARE UNDER CONTROL HE CAN GO WITHOUT USING IT REGULARLY AND USE ONLY ON P.R.N. BASIS HOWEVER BECAUSE OF HIS DIFFICULTY IN UNDERSTANDING DUE TO BEING DEAF AND DUMB, I THINK IT IS EASIER FOR HIM TO JUST KEEP ON USING 1 INHALATION T.I.D.. HE ALSO HAS ALBUTEROL HFA ON HAND BUT HE HARDLY NEEDS TO USE (2) Smoker: Comment: He is a long-time smoker, Now Ex-smoker . Claims that he smoked only a few cigarettes a day , not excessively. He has quit smoking completely since last year. Code(s): F17.200 - Nicotine dependence, unspecified, uncomplicated Category: Social Hx Plan: Commended for not smoking at all, and conveyed the message to him that he will not go back to smoking. (3) Pulmonary nodule 1 cm or greater in diameter: Comment: PATIENT DOES HAVE MULTIPLE SMALL CALCIFIED GRANULOMAS, IN BOTH LUNGS. THESE ARE CONSIDERED BENIGN. ONE NODULE 1X0.8 CM IN LEFT LOWER LOBE DESCRIBED ABOVE. A REPEAT CT SCAN AT 3 MONTHS INTERVAL WAS RECOMMENDED WHICH WAS PERFORMED IN SEPTEMBER 2023. IMPRESSION : 1. Respiratory motion artifact limits evaluation. 2. Emphysematous changes. Emphysematous changes. Biapical pleural parenchymal scarring. Subpleural cystic changes with reticular nodular opacities. Findings may reflect an element of interstitial lung disease. 3. Multiple calcified granuloma throughout the bilateral lung buchanan the evaluation for noncalcified nodules is limited secondary to respiratory motion. 4. A few mildly prominent though nonenlarged mediastinal lymph nodes are noted the largest in the paratracheal region measuring up to 9 mm in short axis. 5. Cholecystectomy. 6. 9 mm splenule. I think the pulmonary nodules reported or mostly calcified granulomata. As he does not smoke anymore, I do not think that he needs ongoing CT scans. Code(s): R91.1 - Solitary pulmonary nodule Category: Medical Plan: Need for follow-up for these benign granulomas. Medications: Refilled ipratropium-albuterol 20-100 mcg/actuation (Combivent Respimat) 1 puff PO QID 30 days 12 mL 5RF COPD J45.40 - Moderate persistent asthma, uncomplicated Coding Level of Care Code Est Pt Level 3 (07211) Diagnoses Centrilobular emphysema J43.2 COPD type: emphysema Emphysema type: centrilobular Smoker F17.200 Pulmonary nodule 1 cm or greater in diameter R91.1
== END 2024-07-28 15:10 | disposition home or self-care (01) ==
PROVIDERS: PCP Physician Assistant; Visit Provider Internal Medicine
DX: J43.2 Centrilobular emphysema (principal); F17.200 Nicotine dependence, unspecified, uncomplicated; R91.1 Solitary pulmonary nodule
CPT/HCPCS: 99213

== ENCOUNTER → 2024-07-28 14:26 | Outpatient (BNVA) | payer OTHER, SELFPAY | PROVIDERS: PCP Physician Assistant; Visit Provider Internal Medicine | DX: J44.9 Chronic obstructive pulmonary disease, unspecified (principal); J43.2 Centrilobular emphysema; R91.1 Solitary pulmonary nodule; F17.200 Nicotine dependence, unspecified, uncomplicated | CPT/HCPCS: 99212 ==

== ENCOUNTER 2024-09-03 09:22 | Outpatient (REF) | payer OTHER, SELFPAY | END 2024-09-03 09:23 | disposition home or self-care (01) | LOC: HO.HAP 09:22 | PROVIDERS: Visit Provider Physician Assistant | DX: Z46.1 Encounter for fitting and adjustment of hearing aid (principal); H90.3 Sensorineural hearing loss, bilateral | CPT/HCPCS: V5266 ==

== ENCOUNTER 2024-12-07 11:50 | Outpatient (REF) | payer OTHER, SELFPAY ==
--- NOTE | 2024-12-07 15:17 | MHC.AU.HA3 ---
Hearing Instrument Follow-Up- Binaural Date of Visit: 12/07/24 Right Ear: Make, Model, Color, Serial Number: [id number] Assistant Tennis Coach Repair Warranty: 01/12/2020 Assistant Tennis Coach Loss and Damage Warranty: 01/12/2020 [facility] Service Plan: Battery Size: 675 Graduate Studies Dean/Slim Tube: Earmold/Dome/CShell/SlimTip:Skeleton mold Type of Wax Guard: Dispensed By: [facility] Date of Fittin11/20/2017 Left Ear: Make, Model, Color, Serial Number: [id number] Assistant Tennis Coach Repair Warranty: 01/12/2020 Assistant Tennis Coach Loss and Damage Warranty: 01/12/2020 [facility] Service Plan: Battery Size: 675 Graduate Studies Dean/Slim Tube: Earmold/Dome/CShell/SlimTip: Skeleton mold Type of Wax Guard: Dispensed By: [facility] Date of Fittin11/20/2017 Follow-Up Summary: HAs d/o, cold broke them and cannot hear well through them on note. Both tone hooks broken, tubing extremely brittle/clogged with wax, excessive debris in angel luis covers, devices themselves appear to have significant build up of a brown substance on the casing, possibly hair dye? Cleaned to best of ability, removed debris, retubed aids, cleaned molds, ran through dehumidifier, replaced tone hooks, new batteries. Listening check ok. Molds are very hard- recommend considering appt for new impressions. Brought to front to call pt to pickup. Recommendations: Recommendations: Patient will call if problems persist. Diagnosis Code(s): Primary Diagnosis: H90.3 Bilateral Sensorineural Hearing Loss Signature: Provider: Peggy Sunshine, CCC-A
== END 2024-12-07 11:51 | disposition home or self-care (01) ==
LOC: HO.SH 11:50
PROVIDERS: Visit Provider Physician Assistant
DX: Z13.89 Encounter for screening for other disorder (principal)

== ENCOUNTER 2024-12-21 13:15 | Outpatient (AMB) | payer OTHER, SELFPAY ==
[2024-12-21 14:16] VITALS: BP 110/60; PULSE 80; BMI 27.5
--- NOTE | 2024-12-21 14:16 | A.OFFVIS_ITS ---
Vital Signs 12/21/24 14:16 Height 5 ft 6 in Weight 170 lb 3.15 oz BMI 27.5 BP 110/60 Blood Pressure Location Lt brachial Position Sitting Pulse 80 Pulse Source Monitor Intake Visit Reasons: 6m follow up Intake Note: 6 mth f/up Wrapping Machine Tender Required: Yes Accompanied by: Sister Allergies No Known Allergies [No Known Allergies*] Allergy (Verified 07/28/24 15:09) Medication List - Last Reconciled 12/21/24 by Gio Barkley MD albuterol sulfate 90 mcg/actuation (Ventolin HFA) 1 inh inhalation QID 30 days aspirin 81 mg PO DAILY atorvastatin 80 mg PO DAILY 90 days baclofen 10 mg PO BID 15 days blood sugar diagnostic (FreeStyle Lite Strips) As directed blood-glucose meter (FreeStyle Lite Meter kit) As directed dapagliflozin propanediol (Farxiga) 10 mg PO DAILY 90 days ipratropium-albuterol 20-100 mcg/actuation (Combivent Respimat) 1 puff PO QID 30 days lancets (Troppin [employer] Safety Lancet) As directed lancets (FreeStyle Lancets) As directed losartan 50 mg PO DAILY metformin 1,000 mg PO BID 90 days metoprolol succinate ER 50 mg PO DAILY quetiapine (Seroquel) 25 mg PO BEDTIME 90 days semaglutide (Ozempic) 0.25 mg (0.368 mL) subcut QWEEK 4 weeks sennosides (senna) 17.2 mg (2 x 8.6 mg) PO BEDTIME 15 days spironolactone 25 mg PO DAILY HPI Comments Details: Very pleasant 64-year-old gentleman who was seen in December 2018 when he presented with chest pain and anterior ST-elevation [place]. He was transferred emergently to [facility] where he underwent cardiac catheterization which revealed prox left anterior descending artery occlusion which was treated with drug-eluting stent. Subsequent to that his echocardiography at [facility] has shown EF of 30 35%. He did not follow-up regularly after that on him for follow-up approximately 2 years later before surgery. He had echocardiography which showed severe LV dysfunction. He was taken for diagnostic angiography which showed patent LAD stent with severe distal RCA stenosis. He did not have any anginal symptoms and RCA was not treated. He was started on guideline directed medical therapy. He has seen Felicitas Chester in our office since then. 08/28/2023: He returns for follow-up. He was seen with engine designer because he is deaf. He is denying any chest discomfort or shortness of breath. His main complaint is abdominal discomfort and looks like he has been constipated. He thinks that this is due to tap water. Otherwise is denying any symptoms at this point. Unclear about his medications whether he is taking them or not but from his description it looks like he gets pillbox from pharmacy. 12/21/2024: Here for follow-up. He is accompanied by the engine designer. He is denying any symptoms. No orthopnea or PND. No chest discomfort shortness of breath. Occasionally gets numbness and tingling in the hands. I have advised him to use some multivitamins. It is possible he may have carpal tunnel syndrome. [facility] Medical History ICD (implantable cardioverter-defibrillator) discharge Tobacco dependence Asthma Grade II diastolic dysfunction Mitral regurgitation Aortic regurgitation HFrEF (heart failure with reduced ejection fraction) COPD (chronic obstructive pulmonary disease) High blood cholesterol level Chest pressure Shortness of breath at rest Physical exam Heart problem KAITLYN (obstructive sleep apnea) Insomnia Hyperlipidemia Deaf, nonspeaking Asthma Surgical History History of cardiac catheterization History of cholecystectomy Family History Father No problems noted. Mother Diabetes Sister Diabetes High cholesterol Social History Housing: Apartment Alcohol intake: current Alcohol intake frequency: holidays/special occasions only Alcohol type: beer Patient Tobacco Use Status: Former Tobacco user Tobacco use type: Cigarette Cigarettes Per Day: 1 e-Cigarette/Vaping Use: Never Used service: No Current occupational status: disabled Cognitive needs: No Hearing needs: Yes Vision needs: Yes Review of Systems Const Denies chills, Denies fatigue, Denies fever(s), Denies frequent falls, Denies weakness, Denies weight gain and Denies weight loss ENT Denies dizziness Card Denies chest pain, Denies leg edema, Denies lightheadedness, Denies palpitations, Denies dyspnea and Denies dyspnea on exertion Resp Denies cough, Denies dyspnea and Denies dyspnea on exertion GI Denies hematochezia Musc Denies abnormal gait, Denies muscle weakness, Denies numbness, Denies radiating pain into limb and Denies tingling Neuro Denies abnormal gait, Denies dizziness, Denies frequent falls, Denies numbness, Denies tingling and Denies weakness Endo Denies fatigue and Denies palpitations Physical Exam Vital Signs: Last Vital Signs Pulse 80 12/21/24 14:16 BP 110/60 12/21/24 14:16 BMI result Body Mass Index 27.5 GENERAL APPEARANCE: in no acute distress, pleasant. deaf. NECK: no carotid bruit, mild jugular venous distention. SKIN: no suspicious lesions, warm and dry. HEART: no murmurs, regular rate and rhythm. LUNGS: clear to auscultation bilaterally. ABDOMEN: soft, nontender. mildly distended. EXTREMITIES: no edema. PERIPHERAL PULSES: equal. NEUROLOGIC: No gross deficits, AAO X 3 Office Procedures EKG Details: Atrial sensed V paced rhythm 80 beats per minute, biphasic T-waves V1 to V6. QTC 493 milliseconds. [id number], Complete Assessment & Plan Assessment & Plan (1) Ischemic cardiomyopathy: Code(s): I25.5 - Ischemic cardiomyopathy Category: Medical Plan 64-year-old gentleman who is here for follow-up. He had anterior wall [place] in 2019 and had moderate LV dysfunction. He lost to follow-up after that and came back 2 years later with severe LV dysfunction. He continues to has severe LV dysfunction at this point. This is due to anterior wall [place] and the fact that he was not on guideline directed medical therapy. He is status post Bi V ICD placement at this point. Last echocardiogram was in March of 2024 which showed EF of 25-30%. He is on spironolactone, Ozempic, losartan and Farxiga. Currently not on any diuretics and is euvolemic. We will repeat echocardiography to reassess ejection fraction. Follow-up with us in 4 months. Thank you for allowing me to participate in the care of your patient. Please feel free to contact me if you have any questions. Orders: Orders CA echo transthorac w con Today I25.5 - Ischemic cardiomyopathy Medications: New multivit with min-folic acid 80 mcg (Centrum Adult 50 Plus) 1 tab PO DAILY 180 tabs 4RF Coding Level of Care Code Est Pt Level 4 (53635) Diagnoses Ischemic cardiomyopathy I25.5 CPT Codes EKG - CPT: 67131-[id number], Complete ([id number])
== END 2024-12-21 14:48 | disposition home or self-care (01) ==
PROVIDERS: PCP Physician Assistant; Visit Provider Internal Medicine Cardiovascular Disease
DX: I25.5 Ischemic cardiomyopathy (principal)
CPT/HCPCS: 93010; 99214

== ENCOUNTER → 2024-12-21 13:15 | Outpatient (BNVA) | payer OTHER, SELFPAY | PROVIDERS: PCP Physician Assistant; Visit Provider Internal Medicine Cardiovascular Disease | DX: I25.5 Ischemic cardiomyopathy (principal); Z87.891 Personal history of nicotine dependence | CPT/HCPCS: 93005; 99212 ==

== ENCOUNTER 2025-02-02 14:17 | Outpatient (AMB) | payer OTHER, SELFPAY ==
[2025-02-02 14:43] VITALS: BP 140/70; PULSE 86; O2SAT 95; BMI 27.4
--- NOTE | 2025-02-02 14:43 | A.OFFVIS_ITS ---
Vital Signs 02/02/25 14:43 Height 5 ft 6 in Weight 170 lb BMI 27.4 BP 140/70 H Blood Pressure Location Lt brachial Pulse 86 Pulse Source Pulse Oximeter Pulse Oximetry (%) 95 Oxygen Delivery Method Room Air Intake Visit Reasons: Pulm Nodule Intake Note: pt is here for for follow up and states he feels good Care Transition Coordinator Required: Yes Care Transition Coordinator Services: Care Transition Coordinator Present Care Transition Coordinator Name: [id number] Allergies No Known Allergies [No Known Allergies*] Allergy (Verified 02/02/25 15:11) Medication List - Last Reconciled 02/02/25 by Santa Uribe MD albuterol sulfate 90 mcg/actuation (Ventolin HFA) 1 inh inhalation QID 30 days aspirin 81 mg PO DAILY atorvastatin 80 mg PO DAILY 90 days baclofen 10 mg PO BID 15 days blood sugar diagnostic (FreeStyle Lite Strips) As directed blood-glucose meter (FreeStyle Lite Meter kit) As directed dapagliflozin propanediol (Farxiga) 10 mg PO DAILY 90 days ipratropium-albuterol 20-100 mcg/actuation (Combivent Respimat) 1 puff PO QID 30 days lancets ([employer] Safety Lancet) As directed lancets (FreeStyle Lancets) As directed losartan 50 mg PO DAILY metformin 1,000 mg PO BID 90 days metoprolol succinate ER 50 mg PO DAILY multivit with min-folic acid 80 mcg (Centrum Adult 50 Plus) 1 tab PO DAILY quetiapine (Seroquel) 25 mg PO BEDTIME 90 days semaglutide (Ozempic) 0.25 mg (0.368 mL) subcut QWEEK 4 weeks sennosides (senna) 17.2 mg (2 x 8.6 mg) PO BEDTIME 15 days spironolactone 25 mg PO DAILY Do you need a note to return to daycare/school/sports/work: No HPI HPI Pulm Nodule: Details: 64 YEARS OLD GENTLEMAN, DEAF AND DUMB, COMMUNICATES WITH SIGN LANGUAGE, COMING AFTER 6 MONTHS. HAS MILD OBSTRUCTIVE AIRWAY DISORDER. CLAIMS THAT HE HAS REMAINED VERY STABLE IN THE LAST 6 MONTHS. HE USES COMBIVENT RESPIMAT 1 INHALATION 3 TIMES A DAY. AND HE USES ALBUTEROL HFA ONLY ONCE IN A WHILE PRN HE IS NONSMOKER . [facility] Medical History ICD (implantable cardioverter-defibrillator) discharge Tobacco dependence Asthma Grade II diastolic dysfunction Mitral regurgitation Aortic regurgitation HFrEF (heart failure with reduced ejection fraction) COPD (chronic obstructive pulmonary disease) High blood cholesterol level Chest pressure Shortness of breath at rest Physical exam Heart problem KAITLYN (obstructive sleep apnea) Insomnia Hyperlipidemia Deaf, nonspeaking Asthma Surgical History History of cardiac catheterization History of cholecystectomy Family History Father No problems noted. Mother Diabetes Sister Diabetes High cholesterol Social History Housing: Apartment Alcohol intake: current Alcohol intake frequency: holidays/special occasions only Alcohol type: beer Patient Tobacco Use Status: Former Tobacco user Tobacco use type: Cigarette Cigarettes Per Day: 1 e-Cigarette/Vaping Use: Never Used service: No Current occupational status: disabled Cognitive needs: No Hearing needs: Yes Vision needs: Yes Review of Systems Const All systems reviewed & are unremarkable except as noted in HPI and below Eyes Reports no additional complaints ENT Reports no additional complaints and Denies Normal hearing present (DEAF AND DUMB) Card Denies chest pain, Denies irregular heart rhythm and Denies leg edema Resp Reports as per HPI GI Reports no additional complaints Reports no additional complaints Musc Reports no additional complaints Neuro Denies Normal hearing present (DEAF AND DUMB) Physical Exam Vital Signs: Last Vital Signs Pulse 86 02/02/25 14:43 BP 140/70 H 02/02/25 14:43 Pulse Ox 95 02/02/25 14:43 Oxygen Delivery Method Room Air 02/02/25 14:43 BMI result Body Mass Index 27.4 Const General: healthy appearing, comfortable, no acute distress, alert and awake Orientation/consciousness: patient oriented x3 HEENT Head: Yes normal to inspection General nose exam: No nasal polyps present and No nasal discharge present Face and sinus: Yes sinuses nontender Mouth: oropharynx normal Throat: Yes posterior oropharynx normal Eyes General: appearance normal, both eyes and all related structures Neck Neck: Yes normal visual inspection, Yes no lymphadenopathy, Yes trachea midline and Yes no JVD Thyroid: Thyroid normal Chest Chest palpation & inspection: normal inspection of the chest, normal palpation of entire chest wall, no tenderness and Pacemaker present (Recently installed in left pectoral area) Resp Other: Percussion note resonant, breath sounds are equal on both sides, slightly distant with prolonged expiratory phase. No wheezes rhonchi or crepitations are heard today . Cardio Palpation: normal PMI Rate: regular rate Rhythm: regular rhythm Heart sounds: no gallops and no murmurs GI Palpation (GI): Soft to palpation, nontender, No hepatosplenomegaly present and no masses Auscultation: normal bowel sounds Back/Spine/Pelvis Thoracic/Lumbar Spine: thoracic and lumbar spine normal to inspection Skin General skin exam: no rashes or lesions noted Neuro General: patient oriented x3 and no focal motor deficits Cranial nerves: No Normal hearing present (DEAF AND DUMB) Extrem General: Yes normal to inspection, Yes no clubbing, cyanosis or edema and Yes no calf tenderness Psych Appearance: well kempt Mental Status: mental status grossly normal (Communicated with him via sign language) Speech and movement: Normal speech and movement present Assessment & Plan Assessment & Plan (1) COPD (chronic obstructive pulmonary disease): Comment: HE DOES HAVE MILD TO MODERATE DEGREE OF CHRONIC OBSTRUCTIVE PULMONARY DISEASE. CURRENTLY SEEMS TO BE WELL CONTROLLED AND STABLE ON COMBIVENT RESPIMAT , USING TID P.R.N. OR SOME TIMES REGULARLY * PULMONARY FUNCTION TEST PERFORMED ON 05/16/23 RESULTS C/W MODERATELY SEVERE OBSTRUCTIVE AIRWAY DISORDER. NO RESPONSE TO BDs Code(s): J44.9 - Chronic obstructive pulmonary disease, unspecified Category: Medical Qualifiers: COPD type: emphysema Emphysema type: centrilobular Qualified Code(s): J43.2 - Centrilobular emphysema Plan: CONTINUE TO USE COMBIVENT RESPIMAT 1 INHALATION T.I.D.. ALBUTEROL HFA 2 PUFFS Q 6 HOURS P.R.N. IN BETWEEN THE ABOVE. (2) Smoker: Comment: He is a long-time smoker, Now Ex-smoker . Claims that he smoked only a few cigarettes a day , not excessively. He has quit smoking completely since 2022 . Code(s): F17.200 - Nicotine dependence, unspecified, uncomplicated Category: Social Hx Plan: COMMENDED FOR QUITTING SMOKING COMPLETELY (3) Pulmonary nodule 1 cm or greater in diameter: Comment: PATIENT DOES HAVE MULTIPLE SMALL CALCIFIED GRANULOMAS, IN BOTH LUNGS. THESE ARE CONSIDERED BENIGN. ONE NODULE 1X0.8 CM IN LEFT LOWER LOBE DESCRIBED ABOVE. A REPEAT CT SCAN AT 3 MONTHS INTERVAL WAS RECOMMENDED WHICH WAS PERFORMED IN SEPTEMBER 2023. IMPRESSION : 1. Respiratory motion artifact limits evaluation. 2. Emphysematous changes. Emphysematous changes. Biapical pleural parenchymal scarring. Subpleural cystic changes with reticular nodular opacities. Findings may reflect an element of interstitial lung disease. 3. Multiple calcified granuloma throughout the bilateral lung buchanan the evaluation for noncalcified nodules is limited secondary to respiratory motion. 4. A few mildly prominent though nonenlarged mediastinal lymph nodes are noted the largest in the paratracheal region measuring up to 9 mm in short axis. 5. Cholecystectomy. 6. 9 mm splenule. I think the pulmonary nodules reported or mostly calcified granulomata. As he does not smoke anymore, I do not think that he needs ongoing CT scans. Code(s): R91.1 - Solitary pulmonary nodule Category: Medical Plan: NO NEED OF ACTIVE FOLLOW-UP Medications: Refilled ipratropium-albuterol 20-100 mcg/actuation (Combivent Respimat) 1 puff PO QID 30 days 12 mL 5RF COPD J45.40 - Moderate persistent asthma, uncomplicated Coding Level of Care Code Est Pt Level 3 (18847) Diagnoses Centrilobular emphysema J43.2 COPD type: emphysema Emphysema type: centrilobular Smoker F17.200 Pulmonary nodule 1 cm or greater in diameter R91.1
== END 2025-02-02 15:17 | disposition home or self-care (01) ==
LOC: HO.HPS 14:18
PROVIDERS: PCP Physician Assistant; Visit Provider Internal Medicine
DX: J43.2 Centrilobular emphysema (principal); F17.200 Nicotine dependence, unspecified, uncomplicated; R91.1 Solitary pulmonary nodule
CPT/HCPCS: 99213

== ENCOUNTER → 2025-02-02 14:17 | Outpatient (BNVA) | payer OTHER, SELFPAY | PROVIDERS: PCP Physician Assistant; Visit Provider Internal Medicine | DX: R91.1 Solitary pulmonary nodule (principal); J43.2 Centrilobular emphysema; F17.210 Nicotine dependence, cigarettes, uncomplicated | CPT/HCPCS: 99212 ==

== ENCOUNTER 2025-02-02 15:36 | Outpatient (REF) | payer OTHER, SELFPAY | END 2025-02-02 15:37 | disposition home or self-care (01) | LOC: HO.HAP 15:36 | PROVIDERS: PCP Physician Assistant; Visit Provider Physician Assistant | DX: Z46.1 Encounter for fitting and adjustment of hearing aid (principal); H90.3 Sensorineural hearing loss, bilateral | CPT/HCPCS: 92593; 99499 ==

== ENCOUNTER 2025-02-08 14:23 | Outpatient (REF) | payer OTHER, SELFPAY ==
--- NOTE | 2025-02-08 16:11 | MHC.AU.HA3 ---
Hearing Instrument Follow-Up- Binaural Date of Visit: 02/08/25 Sheet Finisher Used: ASL Video Right Ear: Make, Model, Color, Serial Number: [id number] 3D Specialist Repair Warranty: 01/12/2020 3D Specialist Loss and Damage Warranty: 01/12/2020 [facility] Service Plan: exp Battery Size: 675 Earmold/Dome/CShell/SlimTip: full shell silicone Dispensed By: [facility] Date of Fittin11/20/2017 Left Ear: Make, Model, Color, Serial Number: [id number] 3D Specialist Repair Warranty: 01/12/2020 3D Specialist Loss and Damage Warranty: 01/12/2020 [facility] Service Plan: exp Battery Size: 675 Earmold/Dome/CShell/SlimTip: full shell silicone Dispensed By: [facility] Date of Fittin11/20/2017 Follow-Up Summary: Jm's hearing aids recently dropped off for service and new earmolds were recommended due to the poor condition of his current earmolds. He returns today for impressions. Jm reports getting feedback and frequent need to push earmolds in his ears. Impressions taken without incidence Au. Previous BAUTISTA notes state skeleton molds however he arrives today with full shell EMs on the hearing aids. Ordering full shell clear silicone. Recommendations: Recommendations: Patient will be contacted when materials have arrived. Diagnosis Code(s): Primary Diagnosis: H90.3 Bilateral Sensorineural Hearing Loss Signature: Provider: Jasvir Solis, [facility]
== END 2025-02-08 14:24 | disposition home or self-care (01) ==
LOC: HO.HAP 14:23
PROVIDERS: Visit Provider Physician Assistant
DX: Z46.1 Encounter for fitting and adjustment of hearing aid (principal); H90.3 Sensorineural hearing loss, bilateral
CPT/HCPCS: V5275

== ENCOUNTER 2025-03-02 12:41 | Outpatient (REF) | payer OTHER, SELFPAY ==
[2025-03-02 13:45] LABS: Hematocrit 38.5 % (42.0-52.0); Hemoglobin 11.9 g/dl (14.0-18.0); Mean Corpuscular HGB Conc 30.9 g/dl (31.0-36.0); Mean Corpuscular Hemoglobin 26.9 pg (27.0-33.0); Mean Corpuscular Volume 86.9 fL (80.0-98.0); Mean Platelet Volume 12.4 fL (9.4-12.4); Platelet Count 195 X10*3/uL (160-400); Red Blood Count 4.43 X10*6/uL (4.60-5.80); Red Cell Distribution Width 12.9 % (11.0-16.0); White Blood Count 8.2 X10*3/uL (4.8-10.8)
[2025-03-02 13:49] LABS: Estimated Average Glucose 194 mg/dL; Hemoglobin A1C 217.5622 umol/L; Hemoglobin A1c % 8.4 % (<6.0); Total Hemoglobin (HGBA1C) 3186.3307 umol/L
[2025-03-02 14:14] LABS: Alanine Aminotransferase 33 U/L (0-40); Albumin Level 4.2 g/dL (3.5-5.0); Alkaline Phosphatase 99 U/L (39-117); Anion Gap 11 (12-20); Aspartate Amino Transferase 27 U/L (5-37); Bilirubin Total 0.2 mg/dL (0.0-1.0); Blood Urea Nitrogen 14 mg/dL (9-16); Calcium 9.5 mg/dL (8.4-10.2); Carbon Dioxide 26 mmol/L (22-29); Chloride 106 mmol/L (96-108); Cholesterol 183 mg/dL (<200); Estimated Glomerular Filt Rate > 60; Glucose Fasting 171 mg/dL (60-99); HDL Cholesterol 42 mg/dL (>40); LDL Cholesterol Calculated 66 mg/dL (<100); Potassium 3.9 mmol/L (3.3-5.1); Sodium 139 mmol/L (135-145); Total Protein 7.2 g/dL (6.5-8.0); Triglycerides 375 mg/dL (<150)
[2025-03-02 14:29] LABS: Prostate Specific Antigen Scr 0.34 ng/mL (<0.05-4.0)
[2025-03-02 15:06] LABS: Creatinine Urine 84.05 mg/dL; Microalbum/Creatinine Ratio Ur 21.4 ug/mg cr (<30)
== END 2025-03-02 12:42 | disposition home or self-care (01) ==
LOC: HO.LAB 12:41
PROVIDERS: PCP Physician Assistant; Visit Provider Physician Assistant
DX: E11.65 Type 2 diabetes mellitus with hyperglycemia (principal); Z12.5 Encounter for screening for malignant neoplasm of prostate; I25.5 Ischemic cardiomyopathy
CPT/HCPCS: 36415; 80053; 80061; 82043; 82570; 83036; 84153; 85027

== ENCOUNTER 2025-03-04 10:48 | Outpatient (AMB) | payer OTHER, SELFPAY ==
--- NOTE | 2025-03-04 10:57 | A.OFFPC_ITS ---
Vital Signs 03/04/25 11:00 Height 5 ft 6 in Weight 169 lb 2 oz BMI 27.3 BP 100/60 Blood Pressure Location Lt brachial Position Sitting Pulse 84 Pulse Source Pulse Oximeter Temp 97.3 F Temp Source Temporal Artery Scan Pulse Oximetry (%) 94 Oxygen Delivery Method Room Air Intake Visit Reasons: Overdue PE/ENT referral International Marketing Coordinator Required: Yes International Marketing Coordinator Language: Sign Languages (macro) International Marketing Coordinator Name: used tablet- [id number] Ring Accompanied by: Sister Allergies No Known Allergies [No Known Allergies*] Allergy (Verified 03/04/25 11:15) Medication List - Last Reconciled 03/04/25 by Eder Altman PA-C albuterol sulfate 90 mcg/actuation (Ventolin HFA) 1 inh inhalation QID 30 days aspirin 81 mg PO DAILY atorvastatin 80 mg PO DAILY 90 days baclofen 10 mg PO BID 15 days blood sugar diagnostic (FreeStyle Lite Strips) As directed blood-glucose meter (FreeStyle Lite Meter kit) As directed dapagliflozin propanediol (Farxiga) 10 mg PO DAILY 90 days ipratropium-albuterol 20-100 mcg/actuation (Combivent Respimat) 1 puff PO QID 30 days lancets (Onetouch Delica Safety Lancet) As directed lancets (FreeStyle Lancets) As directed losartan 50 mg PO DAILY metformin 1,000 mg PO BID 90 days metoprolol succinate ER 50 mg PO DAILY multivit with min-folic acid 80 mcg (Centrum Adult 50 Plus) 1 tab PO DAILY quetiapine (Seroquel) 25 mg PO BEDTIME 90 days semaglutide (Ozempic) 0.25 mg (0.368 mL) subcut QWEEK 4 weeks sennosides (senna) 17.2 mg (2 x 8.6 mg) PO BEDTIME 15 days spironolactone 25 mg PO DAILY Tobacco use date assessed: 03/04/25 Dental Screening Dental Screen Date: 03/04/25 Did you have a dental visit in the last 12 months?: Yes Did you have a dental problem in the last 6 months where you did not have access to dental care?: No Was dental information given to patient?: Patient has dentist HPI Overdue PE/ENT referral HPI Details Patient is a 64-year-old male here today for an annual physical. Patient presents today with his sister. 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 ?Patient has a past medical history significant for CAD with stent placement , smoker, asthma, type 2 diabetes? hyperlipidemia. Concern--> patient reports some odd symptoms of people invading his house when he is not home. There has been no evidence of this as family thinks he is having some hallucinations. They are requesting psychiatric evaluate. .. CAD/ heart failure with reduced ejection fraction:? Patient is followed by marine oil terminal superintendent and continues on high potency statin anti-platelet therapy.? Patient's lipid panel much improved since previous.? Patient recently gotten echocardiogram with his marine oil terminal superintendent showing low- EF 20%. He saw his marine oil terminal superintendent recently and received an ICD. No overt signs of heart failure. He reports he has been feeling well .. COPD/pulmonary nodule: Per patient he reports he quit smoking quite awhile ago. He has seen a manager java. He does have pulmonary nodules that appear stable. Will be followed with surveillance CT imaging.? He reports he uses his inhalers on a p.r.n. basis which does help. .. Type 2 diabetes:? His diabetes is suboptimally controlled. Today's A1c at 8.3 . He continues with metformin a 1000 b.i.d. and Farxiga 10 mg. Colorectal cancer screening: need colorectal cancer screening VAccine: UTD with COVID vacc, UTD with PCV, NEeds Tdap PFSH Medical History ICD (implantable cardioverter-defibrillator) discharge Tobacco dependence Asthma Grade II diastolic dysfunction Mitral regurgitation Aortic regurgitation HFrEF (heart failure with reduced ejection fraction) COPD (chronic obstructive pulmonary disease) High blood cholesterol level Chest pressure Shortness of breath at rest Physical exam Heart problem KAITLYN (obstructive sleep apnea) Insomnia Hyperlipidemia Deaf, nonspeaking Asthma Surgical History History of cardiac catheterization History of cholecystectomy Family History Father No problems noted. Mother Diabetes Sister Diabetes High cholesterol Social History (Updated 03/04/25 @ 11:23 by Eder Altman PA-C) Housing: Apartment Alcohol intake: current Alcohol intake frequency: holidays/special occasions only Alcohol type: beer Patient Tobacco Use Status: Former Tobacco user Tobacco use type: Cigarette Cigarettes Per Day: 1 e-Cigarette/Vaping Use: Never Used service: No Current occupational status: disabled Cognitive needs: No Hearing needs: Yes Vision needs: Yes Questionnaire PHQ-9 Over the last 2 weeks, how often have you been bothered by any of the following problems? 1. Little interest or pleasure in doing things: not at all 2. Feeling down, depressed, or hopeless: not at all 3. Trouble falling or staying asleep, or sleeping too much: not at all 4. Feeling tired or having little energy: not at all 5. Poor appetite or overeating: not at all 6. Feeling bad about yourself - or that you are a failure or have let yourself or your family down: not at all 7. Trouble concentrating on things, such as reading the newspaper or watching television: not at all 8. Moving or speaking so slowly that other people could have noticed. Or the opposite - being so fidgety or restless that you have been moving around a lot more than usual: not at all 9. Thoughts that you would be better off or of hurting yourself in some way: not at all Total score: 0 Depression Screening Interpretation: Negative Depression Screening Done: Yes 82185 - PHQ-9 Billing: Yes Source: Developed by Drs. Demond Rodarte, Beverly Estrada, Regan Rubio and colleagues, with an educational nanda from [employer]. Thrive Questionnaire Date Thrive assessed: 03/04/25 I am a: Patient What is your living situation today?: I have a steady place to live Within the past 12 months, did the food you bought not last and you didn't have the money to get more?: Never true Within the past 12 months, did you worry whether your food would run out before you got money to buy more?: Never true Do you have trouble paying for medicines?: No Do you have trouble getting transportation to medical appointments?: No Do you have trouble paying your heating and electricity bill?: No Do you have trouble taking care of your child, family member or friend?: No Do you have trouble with day-to-day activities such as bathing, preparing meals, shopping, managing finances, etc.?: No Are you currently unemployed and looking for a job?: No Are you interested in more education?: No Please select the resources that you would like help with: None Currently or been in a relationship where the following occur: No concerns reported THRIVE Score: 0 AUDIT C Alcohol Use Questionnaire (AUDIT-C) 1. How often do you have a drink containing alcohol?: 2-4 times a month 2. How many drinks containing alcohol do you have on a typical day when you are drinking?: 3 or 4 3. How often do you have six or more drinks on one occasion?: Never Total Score: 3 RACHEL-7 AMB Questionnaire RACHEL-7 Date RACHEL - 7 assessed: 03/04/25 Feeling nervous, anxious, or on edge: 0 = Not at all Not being able to stop or control worryin = Not at all Worrying too much about different things: 0 = Not at all Trouble relaxin = Not at all Being so restless that it is hard to sit still: 0 = Not at all Becoming easily annoyed or irritable: 0 = Not at all Feeling afraid as if something awful might happen: 0 = Not at all Total RACHEL-7 score (0-4 normal; 5-9 mild; 10-14 moderate; 15-21 severe): 0 Source: Developed by Drs. Demond Rodarte, Beverly Estrada, Regan Rubio and colleagues, with an educational nanda from [employer]. RACHEL-7 Assessment Billing RACHEL-7 Assessment Tool: RACHEL-7 Assessment 69067 Review of Systems Const Denies body aches, Denies chills, Denies excessive sweating, Denies fatigue, Denies fever(s) and Denies headache(s) Eyes Denies blurry vision ENT Denies dysphagia, Denies vertigo, Denies dizziness, Denies headache(s), Denies hearing loss and Denies tinnitus Card Denies chest pain, Denies chest pain with activity, Denies syncope, Denies irregular heart rhythm and Denies dyspnea Resp Denies chest congestion, Denies cough, Denies hemoptysis, Denies dyspnea and Denies wheezing GI Denies abdominal pain, Denies melena, Denies hematochezia, Denies coffee ground emesis, Denies dysphagia, Denies diarrhea, Denies nausea and Denies vomiting Denies difficulty urinating, Denies dysuria, Denies urinary frequency, Denies urinary hesitancy and Denies urinary urgency Musc Denies arthralgias, Denies limited range of motion, Denies muscle cramps and Denies muscle weakness Skin/Breast Denies rash and Denies skin ulcer Neuro Denies Abnormal speech present, Denies confusion, Denies vertigo, Denies dizziness, Denies syncope, Denies headache(s), Denies memory loss and Denies seizure-like activity Psych Denies anxiety, Denies confusion, Denies depression, Denies memory loss, Denies panic attacks and Denies paranoia Endo Denies excessive sweating, Denies fatigue, Denies flushing, Denies polydipsia and Denies polyuria Aller/Immun Denies wheezing Physical exam (Primary Care) Vital Signs: Last Vital Signs Temp 97.3 F 03/04/25 11:00 Pulse 84 03/04/25 11:00 BP 100/60 03/04/25 11:00 Pulse Ox 94 03/04/25 11:00 Oxygen Delivery Method Room Air 03/04/25 11:00 BMI result Body Mass Index 27.3 Tobacco/Smoking Status: Tobacco use Status Tobacco use date assessed 03/04/25 03/04/25 11:06 Patient Tobacco Use Status Former Tobacco user 03/04/25 11:23 Tobacco use type Cigarette 03/04/25 11:23 e-Cigarette/Vaping Use Never Used 03/04/25 11:23 PHQ-9: PHQ-9 Score PHQ-9: Total score 0 03/04/25 11:52 Depression Screening Interpretation: Negative Thrive Assessment: Date of Thrive Assessment Date Thrive assessed 03/04/25 03/04/25 11:10 Currently or been in a relationship where the following occur: No concerns reported Const General: cooperative, comfortable, no acute distress, alert and awake; No confusion Orientation/consciousness: oriented to person, oriented to place, patient oriented x3 and No confusion HENMT Head: Yes normocephalic Ears: external ears normal and TM's normal bilaterally Face and sinus: No sinus tenderness Mouth: Normal oral and palatal mucosa present and tongue normal Teeth and gingiva: dentition normal and gingiva normal Throat: Yes posterior oropharynx normal, Yes tonsils normal and Yes uvula midline Eyes Conjunctivae: conjunctivae normal Sclerae: sclerae normal Pupils: Equal, round and reactive pupils present EOM: EOMs intact bilaterally Direct Ophthalmoscopy: No no photophobia Neck Neck: Yes no lymphadenopathy, No tender and Yes no JVD Thyroid: Thyroid normal Carotids: no bruits Chest Chest palpation & inspection: no tenderness Resp Effort & Inspection: normal respiratory effort, no audible wheezes, not labored and no stridor Auscultation: no crackles, no rales, no rhonchi and no wheezes Cardio Jugular venous distension: no JVD Rate: regular rate, not bradycardic and not tachycardic Rhythm: regular rhythm Bruits: no carotid bruits Peripheral pulses: Peripheral pulses 2+ throughout GI Inspection: Yes normal to inspection, No abdominal wall ecchymosis and No visible herniation Palpation (GI): Soft to palpation, nontender, no guarding, not rigid and No hepatosplenomegaly present Auscultation: normoactive bowel sounds General: Yes no CVA tenderness Back/Spine/Pelvis Back: no CVA tenderness and No back tenderness Cervical Spine: cervical ROM normal Thoracic/Lumbar Spine: thoracic and lumbar spine normal to inspection, straight leg raise negative bilaterally, No thoraco-lumbar ROM limited and No lumbar spinal tenderness Skin Lesions: no lesions Rashes: no rashes Wounds: no wounds Neuro General: oriented to person, oriented to place, patient oriented x3, CN's II-XI intact bilaterally and No confusion Cranial nerves: Yes Equal, round and reactive pupils present and Yes Normal accommodation reflex present Cognition (Neuro): normal cognition Speech: No Abnormal speech present Gait exam (Neuro): Normal gait present Motor exam (neuro): 5/5 motor strength present throughout Extrem Right upper extremity: full ROM; no cyanosis Left upper extremity: full ROM; no cyanosis Right lower extremity: no edema Left lower extremity: no edema Psych Appearance: grossly normal Mental Status: mental status grossly normal Affect: normal affect Attitude: cooperative Thought process: Normal thought process present Immunizations Boostrix Tdap 2.5 Lf unit-8 mcg-5 Lf/0.5 mL intramuscular syringe Performing Provider: Eder Altman PA-C [facility] Administered by: KENAN Lauren on 03/04/25 11:52 Dose Route Admin Location Dispensed Lot Number Expiration Date [facility] [employer] 0.5 mL IM Left Deltoid 0.5 mL [id number] 06/09/27 64559-950-99 [employer] VIS Given Date VIS Provided VIS Publication Date 03/04/25 Single Vaccine 24 Eligibility Eligibility Date Funding Source Not VFC Eligible 03/04/25 Private Coding Diagnoses Annual physical exam Z00.00 Type 2 diabetes mellitus with hyperglycemia, without long-term current use of insulin E11.65 Diabetes mellitus complication status: with hyperglycemia Diabetes mellitus longterm insulin use: without supervisor intermediates use HFrEF (heart failure with reduced ejection fraction) I50.20 Paranoid delusion F22 Additional Codes RACHEL-7 Assessment Billing - RACHEL-7 Assessment Tool: RACHEL-7 Assessment 88432 ([id number]) PHQ-9 - 30301 - PHQ-9 Billing: Yes ([id number]) Assessment & Plan Assessment & Plan (1) Annual physical exam: Code(s): Z00.00 - Encounter for general adult medical examination without abnormal findings Category: Medical Plan: as per HPI (2) DMII (diabetes mellitus, type 2): Code(s): E11.9 - Type 2 diabetes mellitus without complications Category: Medical Qualifiers: Diabetes mellitus complication status: with hyperglycemia Diabetes mellitus supervisor intermediates insulin use: without supervisor intermediates use Qualified Code(s): E11.65 - Type 2 diabetes mellitus with hyperglycemia (3) HFrEF (heart failure with reduced ejection fraction): Comment: EF 20-25% Code(s): I50.20 - Unspecified systolic (congestive) heart failure Category: Medical (4) Paranoid delusion: Code(s): F22 - Delusional disorders Category: Medical Orders: Orders Comprehensive [place]. Panel Fast Today E11.65 - Type 2 diabetes mellitus with hyperglycemia TDaP Immunization Today E11.65 - Type 2 diabetes mellitus with hyperglycemia, Z23 - Encounter for immunization Complete Blood Count no Diff Today E11.65 - Type 2 diabetes mellitus with hyperglycemia Hemoglobin A1c Today E11.65 - Type 2 diabetes mellitus with hyperglycemia Referrals Psychiatry Outpatient Consultation Service F22 - Delusional disorders Medications: Refilled atorvastatin 80 mg PO DAILY 90 days 90 tabs 2RF I25.118 - Atherosclerotic heart disease of kake coronary artery with other forms of angina pectoris dapagliflozin propanediol (Farxiga) 10 mg PO DAILY 90 days 90 tabs 3RF E11.65 - Type 2 diabetes mellitus with hyperglycemia, I50.20 - Unspecified systolic (congestive) heart failure albuterol sulfate 90 mcg/actuation (Ventolin HFA) 1 inh inhalation QID 30 days 8.5 grams 6RF J43.2 - Centrilobular emphysema metformin 1,000 mg PO BID 90 days 180 tabs 3RF E11.65 - Type 2 diabetes mellitus with hyperglycemia Discontinued semaglutide (Ozempic) for 4 weeks Discontinued Reason: Doctor's Order 0.25 mg (0.368 mL) subcut QWEEK 4 weeks 3 mL 0RF E11.65 - Type 2 diabetes mellitus with hyperglycemia
[2025-03-04 11:00] VITALS: BP 100/60; PULSE 84; TEMP 36.3; O2SAT 94; BMI 27.3
== END 2025-03-04 11:58 | disposition home or self-care (01) ==
LOC: HO.HMCH 10:48
PROVIDERS: PCP Physician Assistant; Visit Provider Physician Assistant
DX: Z23 Encounter for immunization (principal); E11.65 Type 2 diabetes mellitus with hyperglycemia

== ENCOUNTER → 2025-03-04 10:48 | Outpatient (BNVA) | payer OTHER, SELFPAY | PROVIDERS: PCP Physician Assistant; Visit Provider Physician Assistant | DX: Z00.00 Encounter for general adult medical examination without abnormal findings (principal); I25.10 Atherosclerotic heart disease of native coronary artery without angina pectoris; J43.2 Centrilobular emphysema; E78.5 Hyperlipidemia, unspecified; E11.65 Type 2 diabetes mellitus with hyperglycemia; I50.20 Unspecified systolic (congestive) heart failure; F22 Delusional disorders; Z95.810 Presence of automatic (implantable) cardiac defibrillator; Z87.891 Personal history of nicotine dependence; Z95.828 Presence of other vascular implants and grafts; Z23 Encounter for immunization | CPT/HCPCS: 90471; 90715; 96127; 99396 ==

== ENCOUNTER 2025-04-30 11:06 | Outpatient (REF) | payer OTHER, SELFPAY ==
--- NOTE | 2025-04-30 13:17 | MHC.AU.HA3 ---
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: [employer] Video Right Ear: Make, Model, Color, Serial Number: [id number] Custodial Foreman Repair Warranty: 01/12/2020 Custodial Foreman Loss and Damage Warranty: 01/12/2020 Battery Size: 675 Earmold/Dome/CShell/SlimTip:Skeleton mold S#[id number] Warranty 05/18/2025 Dispensed By: [facility] Date of Fittin11/20/2017 Left Ear: Make, Model, Color, Serial Number: [id number] Custodial Foreman Repair Warranty: 01/12/2020 Custodial Foreman Loss and Damage Warranty: 01/12/2020 Battery Size: 675 Earmold/Dome/CShell/SlimTip: Skeleton mold [id number] Warranty 05/18/2025 Dispensed By: [facility] Date of Fittin11/20/2017 Follow-Up Summary: Dispensed new earmolds. Fit looks good. Jm reports they are comfortable, secure in the ears. Gave him his old molds in a bag to hold on to for back up. Recommendations: Recommendations: Hearing instrument follow-up or maintenance as needed. Diagnosis Code(s): Primary Diagnosis: H90.3 Bilateral Sensorineural Hearing Loss Signature: Provider: Jasvir Solis, [facility]
== END 2025-04-30 11:07 | disposition home or self-care (01) ==
LOC: HO.HAP 11:06
PROVIDERS: Visit Provider Physician Assistant
DX: Z46.1 Encounter for fitting and adjustment of hearing aid (principal); H90.3 Sensorineural hearing loss, bilateral
CPT/HCPCS: V5264; V5266

== ENCOUNTER 2025-06-08 11:00 | Outpatient (AMB) | payer OTHER, SELFPAY ==
--- NOTE | 2025-06-08 11:08 | MHC.PC.OV ---
Vital Signs 06/08/25 11:09 Height 5 ft 6 in Weight 173 lb 2 oz BMI 27.9 BP 130/66 Blood Pressure Location Lt brachial Position Sitting Pulse 96 Pulse Source Pulse Oximeter Temp 97.1 F Temp Source Temporal Artery Scan Pulse Oximetry (%) 94 Oxygen Delivery Method Room Air Intake Visit Reasons: f/u DMII - repeat A1C Intake Note: Patient is here to follow up on DM. Compliance Engineer Products Required: Yes Compliance Engineer Products Language: Watch Technician Name: Icelandic Sign language Information Interpreted: non-clinical & clinical Medical Records Clerk: Present Accompanied by: Spouse Allergies No Known Allergies (No Known Allergies*) Allergy (Verified 06/08/25 11:31) Medication List - Last Reconciled 06/08/25 by Eder Altman PA-C albuterol sulfate 90 mcg/actuation (Ventolin HFA) 1 inh inhalation QID 30 days aspirin 81 mg PO DAILY atorvastatin 80 mg PO DAILY 90 days baclofen 10 mg PO BID 15 days blood sugar diagnostic (FreeStyle Lite Strips) As directed blood-glucose meter (FreeStyle Lite Meter kit) As directed dapagliflozin propanediol (Farxiga) 10 mg PO DAILY 90 days ipratropium-albuterol 20-100 mcg/actuation (Combivent Respimat) 1 puff PO QID 30 days lancets (SpunLivetouch Delica Safety Lancet) As directed lancets (FreeStyle Lancets) As directed losartan 50 mg PO DAILY metformin 1,000 mg PO BID 90 days metoprolol succinate ER 50 mg PO DAILY multivit with min-folic acid 80 mcg (Centrum Adult 50 Plus) 1 tab PO DAILY quetiapine (Seroquel) 25 mg PO BEDTIME 90 days sennosides (senna) 17.2 mg (2 x 8.6 mg) PO BEDTIME 15 days spironolactone 25 mg PO DAILY Tobacco use date assessed: 06/08/25 Dental Screening Dental Screen Date: 03/04/25 HPI f/u DMII - repeat A1C HPI Details Patient is a 64-year-old male here today for a follow-up visit . Patient presents today with his sister. He is auditory impaired thus using radio frequency design engineer as well. ?Patient has a past medical history significant for CAD with stent placement , smoker, asthma, type 2 diabetes? hyperlipidemia. .. CAD/ heart failure with reduced ejection fraction: Has ICD implanted. ? Patient is followed by rack puncher and continues on high potency statin anti-platelet therapy.? Patient's lipid panel much improved since previous.? Has upcoming appointment for echocardiogram No overt signs of heart failure. He reports he has been feeling well .. COPD/pulmonary nodule: Per patient he reports he quit smoking quite awhile ago. He has seen a optimization manager. He does have pulmonary nodules that appear stable. Will be followed with surveillance CT imaging.? He reports he uses his inhalers on a p.r.n. basis which does help. .. Type 2 diabetes:? His diabetes is now well controlled. Today's A1c at 6.9 from 8.4, he has made some dietary changes . He continues with metformin a 1000 b.i.d. and Farxiga 10 mg. Jm was not able to tolerate Ozempic due to GI side effects from the medication. [facility] Medical History ICD (implantable cardioverter-defibrillator) discharge Tobacco dependence Asthma Grade II diastolic dysfunction Mitral regurgitation Aortic regurgitation HFrEF (heart failure with reduced ejection fraction) COPD (chronic obstructive pulmonary disease) High blood cholesterol level Chest pressure Shortness of breath at rest Physical exam Heart problem KAITLYN (obstructive sleep apnea) Insomnia Hyperlipidemia Deaf, nonspeaking Asthma Surgical History History of cardiac catheterization History of cholecystectomy Family History Father No problems noted. Mother Diabetes Sister Diabetes High cholesterol Social History Housing: Apartment Alcohol intake: current Alcohol intake frequency: holidays/special occasions only Alcohol type: beer Patient Tobacco Use Status: Former Tobacco user Tobacco use type: Cigarette Cigarettes Per Day: 1 e-Cigarette/Vaping Use: Never Used Second Hand Smoke Exposure: Yes service: No Current occupational status: disabled Cognitive needs: No Hearing needs: Yes (Hearing aides) Vision needs: Yes (Reading Glasses) Questionnaire PHQ-9 Over the last 2 weeks, how often have you been bothered by any of the following problems? 1. Little interest or pleasure in doing things: not at all 2. Feeling down, depressed, or hopeless: not at all 3. Trouble falling or staying asleep, or sleeping too much: not at all 4. Feeling tired or having little energy: not at all 5. Poor appetite or overeating: not at all 6. Feeling bad about yourself - or that you are a failure or have let yourself or your family down: not at all 7. Trouble concentrating on things, such as reading the newspaper or watching television: not at all 8. Moving or speaking so slowly that other people could have noticed. Or the opposite - being so fidgety or restless that you have been moving around a lot more than usual: not at all 9. Thoughts that you would be better off or of hurting yourself in some way: not at all Total score: 0 Depression Screening Interpretation: Negative Depression Screening Done: Yes 16830 - PHQ-9 Billing: Yes Source: Developed by Drs. Demond Rodarte, Beverly Estrada, Regan Rubio and colleagues, with an educational nanda from [employer]. Thrive Questionnaire Date Thrive assessed: 03/04/25 I am a: Patient What is your living situation today?: I have a steady place to live Within the past 12 months, did the food you bought not last and you didn't have the money to get more?: I choose not to answer this question Within the past 12 months, did you worry whether your food would run out before you got money to buy more?: I choose not to answer this question Do you have trouble paying for medicines?: No Do you have trouble getting transportation to medical appointments?: No Do you have trouble paying your heating and electricity bill?: No Do you have trouble taking care of your child, family member or friend?: No Do you have trouble with day-to-day activities such as bathing, preparing meals, shopping, managing finances, etc.?: No Are you currently unemployed and looking for a job?: No Are you interested in more education?: No Please select the resources that you would like help with: None Currently or been in a relationship where the following occur: No concerns reported THRIVE Score: 0 AUDIT C Alcohol Use Questionnaire (AUDIT-C) 1. How often do you have a drink containing alcohol?: 2-3 times a week 2. How many drinks containing alcohol do you have on a typical day when you are drinking?: 1 or 2 3. How often do you have six or more drinks on one occasion?: Never Total Score: 3 RACHEL-7 AMB Questionnaire RACHEL-7 Date RACHEL - 7 assessed: 06/08/25 Feeling nervous, anxious, or on edge: 3 = Nearly every day Not being able to stop or control worryin = Nearly every day Worrying too much about different things: 1 = Several days Trouble relaxin = Several days Being so restless that it is hard to sit still: 1 = Several days Becoming easily annoyed or irritable: 1 = Several days Feeling afraid as if something awful might happen: 1 = Several days Total RACHEL-7 score (0-4 normal; 5-9 mild; 10-14 moderate; 15-21 severe): 11 Source: Developed by Drs. Demond Rodarte, Beverly Estrada, Regan Rubio and colleagues, with an educational nanda from [employer]. RACHEL-7 Assessment Billing RACHEL-7 Assessment Tool: RACHEL-7 Assessment 19496 Review of Systems Const Denies headache(s) Eyes Denies loss of vision ENT Denies vertigo, Denies dizziness, Denies headache(s) and Denies sore throat Card Denies chest pain, Denies leg edema and Denies lightheadedness Resp Denies cough, Denies hemoptysis and Denies wheezing GI Denies abdominal pain, Denies melena, Denies constipation, Denies diarrhea and Denies vomiting Denies dysuria, Denies urinary frequency and Denies urinary urgency Musc Denies arthralgias, Denies joint swelling, Denies numbness and Denies tingling Neuro Denies Abnormal speech present, Denies behavioral changes, Denies vertigo, Denies dizziness, Denies headache(s), Denies loss of vision, Denies memory loss, Denies numbness and Denies tingling Psych Denies anxiety, Denies behavioral changes, Denies depression, Denies memory loss and Denies panic attacks Luis/Lymph Denies easy bleeding and Denies easy bruising Aller/Immun Denies wheezing Physical exam (Primary Care) Vital Signs: Last Vital Signs Temp 97.1 F 06/08/25 11:09 Pulse 96 06/08/25 11:09 BP 130/66 06/08/25 11:09 Pulse Ox 94 06/08/25 11:09 Oxygen Delivery Method Room Air 06/08/25 11:09 BMI result Body Mass Index 27.9 Tobacco/Smoking Status: Tobacco use Status Tobacco use date assessed 06/08/25 06/08/25 11:13 Patient Tobacco Use Status Former Tobacco user 06/08/25 11:13 Tobacco use type Cigarette 06/08/25 11:13 e-Cigarette/Vaping Use Never Used 06/08/25 11:13 PHQ-9: PHQ-9 Score PHQ-9: Total score 0 06/08/25 11:13 Depression Screening Interpretation: Negative Thrive Assessment: Date of Thrive Assessment Date Thrive assessed 03/04/25 06/08/25 11:13 Currently or been in a relationship where the following occur: No concerns reported Const General: healthy appearing, no acute distress, alert and awake Nutritional Appearance: well nourished Orientation/consciousness: oriented to person, oriented to place and oriented to time HENMT Ears: TM's normal bilaterally General nose exam: Normal nasal mucous membranes and turbinates present Eyes Conjunctivae: conjunctivae normal Sclerae: sclerae normal Pupils: Equal, round and reactive pupils present Neck Neck: Yes no lymphadenopathy and Yes no JVD Thyroid: Thyroid normal Carotids: no bruits Resp Effort & Inspection: normal respiratory effort and not tachypneic Auscultation: no crackles, no rales, no rhonchi and no wheezes Cardio Rate: regular rate Rhythm: regular rhythm Heart sounds: no murmurs and normal S1 and S2 GI Palpation (GI): Soft to palpation, nontender, no hepatomegaly and no splenomegaly Auscultation: normal bowel sounds Skin General skin exam: no rashes or lesions noted and dry skin Neuro General: oriented to person, oriented to place and oriented to time Cranial nerves: Yes Equal, round and reactive pupils present Speech: No Abnormal speech present Gait exam (Neuro): Normal gait present Motor exam (neuro): no tremor noted Extrem Right upper extremity: full ROM Left upper extremity: full ROM Right lower extremity: full ROM; no edema Left lower extremity: full ROM; no edema Psych Mental Status: mental status grossly normal Speech and movement: Normal speech and movement present Affect: normal affect Attitude: cooperative Thought process: Normal thought process present Results AMB Hemoglobin A1c AMB Hemoglobin A1c 6.9 % Last Edit by PAULA Andrade on 06/08/25 11:28 Results Reviewed Results Reviewed: Laboratory Last Values Hgb A1c (Clinic) 6.9 % (4.0-6.0) H 06/08/25 11:07 Coding Level of Care Code Est Pt Level 4 (33715) Diagnoses Type 2 diabetes mellitus with hyperglycemia, without long-term current use of insulin E11.65 Diabetes mellitus nursing home insulin use: without emt intermediate use Diabetes mellitus complication status: with hyperglycemia HFrEF (heart failure with reduced ejection fraction) I50.20 RACHEL (generalized anxiety disorder) F41.1 Additional Codes PHQ-9 - 34180 - PHQ-9 Billing: Yes ([id number]) RACHEL-7 Assessment Billing - RACHEL-7 Assessment Tool: RACHEL-7 Assessment 68640 ([id number]) Assessment & Plan Assessment & Plan (1) DMII (diabetes mellitus, type 2): Code(s): E11.9 - Type 2 diabetes mellitus without complications Category: Medical Qualifiers: Diabetes mellitus emt intermediate insulin use: without emt intermediate use Diabetes mellitus complication status: with hyperglycemia Qualified Code(s): E11.65 - Type 2 diabetes mellitus with hyperglycemia Plan: Patient's type 2 diabetes now weell controlled with a1c- 6.9 from 8.4 . He continues on maximal dose of metformin and Farxiga. We did try Ozempic though had GI side effects to the injection. He has made dietary changes. We did discuss starting additional oral medication though patient declines and will like to work dietary modifications over the next 3 months. Goal A1c is to be below 7.0 (2) HFrEF (heart failure with reduced ejection fraction): Comment: EF 20-25% Code(s): I50.20 - Unspecified systolic (congestive) heart failure Category: Medical Plan: Patient followed by [facility]. He continues to have a reduced ejection fraction .He has upcoming appointment for repeat echocardiogram and follow up with Cardiology. Does now have a ICD placed in denies any discharges though does report at times feeling that he is getting zapped lately. (3) RACHEL (generalized anxiety disorder): Code(s): F41.1 - Generalized anxiety disorder Category: Medical Plan: Patient's RACHEL-7 score positive for anxiety which has been existing condition for him. He is not interested in mental health medications. We are trying to get him into a mental health therapist and a psychiatrist as he often seems to have delusions of people entering his apartment though this is unclear if actually true Orders: Orders AMB Hemoglobin A1c Today E11.65 - Type 2 diabetes mellitus with hyperglycemia Prostate Specific Antigen Scr Today Z12.5 - Encounter for screening for malignant neoplasm of prostate Referrals Gastroenterology Referral Z12.11 - Encounter for screening for malignant neoplasm of colon Medications: Changed From losartan 50 mg PO DAILY E11.65 - Type 2 diabetes mellitus with hyperglycemia To losartan 50 mg PO DAILY 90 tabs 1RF 90 days E11.65 - Type 2 diabetes mellitus with hyperglycemia Refilled albuterol sulfate 90 mcg/actuation (Ventolin HFA) 1 inh inhalation QID 8.5 grams 6RF 30 days J43.2 - Centrilobular emphysema metformin 1,000 mg PO BID 180 tabs 3RF 90 days E11.65 - Type 2 diabetes mellitus with hyperglycemia atorvastatin 80 mg PO DAILY 90 tabs 2RF 90 days I25.118 - Atherosclerotic heart disease of picayune coronary artery with other forms of angina pectoris dapagliflozin propanediol (Farxiga) 10 mg PO DAILY 90 tabs 2RF 90 days E11.65 - Type 2 diabetes mellitus with hyperglycemia, I50.20 - Unspecified systolic (congestive) heart failure
[2025-06-08 11:09] VITALS: BP 130/66; PULSE 96; TEMP 36.2; O2SAT 94; BMI 27.9
== END 2025-06-08 11:52 | disposition home or self-care (01) ==
LOC: HO.HMCH 11:00
PROVIDERS: PCP Physician Assistant; Visit Provider Physician Assistant
DX: E11.65 Type 2 diabetes mellitus with hyperglycemia (principal); I50.20 Unspecified systolic (congestive) heart failure; F41.1 Generalized anxiety disorder

== ENCOUNTER → 2025-06-08 11:00 | Outpatient (BNVA) | payer OTHER, SELFPAY | PROVIDERS: PCP Physician Assistant; Visit Provider Physician Assistant | DX: E11.65 Type 2 diabetes mellitus with hyperglycemia (principal); I50.20 Unspecified systolic (congestive) heart failure; E78.5 Hyperlipidemia, unspecified; J44.9 Chronic obstructive pulmonary disease, unspecified; R91.1 Solitary pulmonary nodule; F41.1 Generalized anxiety disorder; I25.118 Atherosclerotic heart disease of native coronary artery with other forms of angina pectoris; Z79.84 Long term (current) use of oral hypoglycemic drugs; Z87.891 Personal history of nicotine dependence | CPT/HCPCS: 83036; 96127; 99212 ==

== ENCOUNTER → 2025-06-18 11:07 | Outpatient (REF) | payer OTHER, SELFPAY ==
--- NOTE | 2025-06-18 11:10 | CA_ITS ---
Transthoracic Echocardiogram Patient (Last, First, Middle): Jm Pal J Gender: M Date of : 1960 Age: 64 Procedure Date: 06/18/2025 Procedure Type: Transthoracic Echocardiogram Location: OP Height: 167.64 cm Weight: 78.47 kg BSA: 1.88 m2 Heart Rate: bpm BP: 118 / 72 mmHg Front Desk Assistant: TO Referring MD: Gio Barkley MD Accounting Professor: Gio Barkley MD Symptoms: I25.5 - Ischemic cardiomyopathy Study Quality: Fair/Contrast ECG Rhythm: Sinus Conclusions: - 1. Mildly dilated left ventricle with severely reduced LV ejection fraction with 25-30% with underlying regional wall motion abnormality consistent with ischemic cardiomyopathy with impaired relaxation filling pattern 2. Mild aortic regurgitation 3. Normal RV systolic pressure 4. No gross pericardial effusion Findings Procedure Information Contrast agent, definity, is being given per protocol without apparent complications. Left Ventricle Mildly increased left ventricular cavity size. There is normal left ventricular wall thickness. The left ventricular systolic function is severely decreased. The visually estimated ejection fraction is between 25 30%. Spectral Doppler is indicative of an impaired relaxation filling pattern. E/E prime ratio is between 8 and 15 consistent with indeterminate filling pressures. Wall Motion Rest Echo Findings The inferior wall, entire lateral wall, the apical anterior, and mid anterior segments are hypokinetic. The entire septum and apex segment are akinetic. All other scored wall segments showed normal motion. Right Ventricle Normal right ventricular cavity size and systolic function. Atria The left atrium is normal in size. Interatrial shunt cannot be excluded. The right atrium is normal in size. Aortic Valve There is no aortic valve stenosis. There is mild aortic valve regurgitation. Mitral Valve Normal mitral valve structure and function. There is trace mitral valve regurgitation. There is no mitral valve stenosis. Pulmonic Valve The pulmonic valve was not well visualized. Tricuspid Valve Likely normal tricuspid valve structure and function. There is trace tricuspid valve regurgitation. The right ventricular systolic pressure is normal. The right ventricular systolic pressure is 22 mmHg. Normal right atrial pressure. There is no evidence of pulmonary hypertension. Great Vessels All visible segments of the aorta are normal in size. The pulmonary artery was not well visualized. There is no dilatation of the ascending aorta measuring 3.40 cm. Venous The inferior vena cava is normal in size and collapses greater than 50% with inspiration. Pericardium/Pleural There is no evidence of pericardial effusion. Prior Study Comparison No significant change compared to prior study dated: 04/08/2024. Measurements 2D Linear Measurements IVSd: 0.77 0.6-0.9/0.6-1.0 cm LVIDd: 6.17 3.9-5.3/4.2-5.9 cm LVIDd Index: 3.28 2.4-3.2/2.2-3.1 cm/m2 LVIDs: 5.38 2.0-3.6 cm LVPWd: 0.76 0.7-1.1 cm LA Diam: 3.10 2.7-3.8/3.0-4.0 cm LAIDs Index: 1.65 1.5-2.3 cm/m2 LV Mass: 231.07 67-162/88-224 g LV Mass Index: 122.91 43-95/49-115 g/m2 LVOT Diam: 2.00 3.0+(-)1.3 cm 2D Systolic Function EF 4C: 19.50 >55% EF 2C: 32.80 >55% EF BiP: 27.80 >55% Mitral Valve MV Pk E: 0.63 MV PK A: 1.05 MV Decel Time: 127.00 E/A: 0.60 E'Lateral: 5.77 E'Medial: 5.77 E/E' Med: 11.00 E/E' Lat: 11.00 PHT: 37.00 MVA PHT: 5.95 Decel Candler: 5.00 Aortic Valve AoV Pk Gustavo: 1.71 AoV Mn Gustavo: 1.08 AoV VTI: 0.30 AoV Pk Grad: 12.00 Aov Mn Grad: 5.00 ZAIRE Cont.VTI: 2.00 AI Pk Gustavo: 3.90 AI Candler: 2.48 LVOT LVOT Pk Gustavo: 1.08 LVOT Mn Gustavo: 0.69 LVOT VTI: 0.19 LVOT Pk Grad: 5.00 LVOT Mn Grad: 2.00 LVOT Diam: 2.00 LVOT Area: 3.14 Diastolic Function MV Pk E: 0.63 MV Pk A: 1.05 E/A: 0.60 E'Medial: 5.77 E/E' Med: 11.00 E' Laterial: 5.77 E/E' Lat: 11.00 Right Ventricle TAPSE (mm): 22.10 TVS' Gustavo: 14.00 Tricuspid Valve TR Pk Gustavo: 2.16 TR Pk Grad: 19.00 RA Press: 3.00 RVSP: 22.00 Great Vessels Aorta Sinus of Valsalva: 3.45 2.0-3.5 cm Ao Asc: 3.40 2.1-3.4 cm Updated in Other Vendor System with Status of Final Remington Chappell MD electronically signed on 06/18/2025 1:29:27 PM with status of Final
== END ==
LOC: HO.CARD 11:07
PROVIDERS: PCP Physician Assistant; Visit Provider Internal Medicine Cardiovascular Disease
DX: I25.5 Ischemic cardiomyopathy (principal)
CPT/HCPCS: 93306; Q9957

== ENCOUNTER → 2025-06-18 11:10 | Outpatient (BNV) | payer OTHER, SELFPAY | PROVIDERS: PCP Physician Assistant; Visit Provider Internal Medicine Cardiovascular Disease | DX: I50.20 Unspecified systolic (congestive) heart failure (principal); I35.1 Nonrheumatic aortic (valve) insufficiency; I25.5 Ischemic cardiomyopathy | CPT/HCPCS: 93306 ==

== ENCOUNTER 2025-06-25 09:37 | Outpatient (AMB) | payer OTHER, SELFPAY ==
[2025-06-25 09:42] VITALS: BP 120/62; PULSE 100; BMI 28.0
--- NOTE | 2025-06-25 09:42 | MHC.OFFVIS ---
Vital Signs 06/25/25 09:42 Height 5 ft 6 in Weight 173 lb 4.533 oz BMI 28.0 BP 120/62 Blood Pressure Location Lt brachial Position Sitting Pulse 100 Intake Visit Reasons: f/up-echo Family Nurse Practitioner Required: Yes Family Nurse Practitioner Services: Family Nurse Practitioner Present Pack Changer: Pack Changer Present Accompanied by: Sister Allergies No Known Allergies (No Known Allergies*) Allergy (Verified 06/25/25 09:50) Medication List - Last Reconciled 06/25/25 by EMILY Huang albuterol sulfate 90 mcg/actuation (Ventolin HFA) 1 inh inhalation QID 30 days aspirin 81 mg PO DAILY atorvastatin 80 mg PO DAILY 90 days baclofen 10 mg PO BID 15 days blood sugar diagnostic (FreeStyle Lite Strips) As directed blood-glucose meter (FreeStyle Lite Meter kit) As directed dapagliflozin propanediol (Farxiga) 10 mg PO DAILY 90 days ipratropium-albuterol 20-100 mcg/actuation (Combivent Respimat) 1 puff PO QID 30 days lancets ([employer] Del[employer]integrated Safety Lancet) As directed lancets (FreeStyle Lancets) As directed metformin 1,000 mg PO BID 90 days metoprolol succinate ER 50 mg PO DAILY multivit with min-folic acid 80 mcg (Centrum Adult 50 Plus) 1 tab PO DAILY quetiapine (Seroquel) 25 mg PO BEDTIME 90 days sennosides (senna) 17.2 mg (2 x 8.6 mg) PO BEDTIME 15 days spironolactone 25 mg PO DAILY HPI HPI f/up-echo: Details: Jm is a 64-year-old male with past medical history of smoking, hypertension, hyperlipidemia, diabetes, left bundle branch block, CAD with anterior STEMI and HENRIK to the LAD 2018, ischemic cardiomyopathy, nonobstructive disease by catheterization 2020, Bi V ICD placed 12/24/23 and who presents for follow-up. Today he reports that he has been feeling well overall. He denies having chest discomfort, shortness of breath, heart palpitations, lightheadedness. He has been walking and cleaning cars for activity/ exercise. He takes his meds as directed and has been doing better with compliance. Sister is present. ICD site is feeling good. Patient is deaf and certified sign language interpreters used. [facility] Medical History ICD (implantable cardioverter-defibrillator) discharge Tobacco dependence Asthma Grade II diastolic dysfunction Mitral regurgitation Aortic regurgitation HFrEF (heart failure with reduced ejection fraction) COPD (chronic obstructive pulmonary disease) High blood cholesterol level Chest pressure Shortness of breath at rest Physical exam Heart problem KAITLYN (obstructive sleep apnea) Insomnia Hyperlipidemia Deaf, nonspeaking Asthma Surgical History History of cardiac catheterization History of cholecystectomy Family History Father No problems noted. Mother Diabetes Sister Diabetes High cholesterol Social History Housing: Apartment Alcohol intake: current Alcohol intake frequency: holidays/special occasions only Alcohol type: beer Patient Tobacco Use Status: Former Tobacco user Tobacco use type: Cigarette Cigarettes Per Day: 1 e-Cigarette/Vaping Use: Never Used Second Hand Smoke Exposure: Yes service: No Current occupational status: disabled Cognitive needs: No Hearing needs: Yes (Hearing aides) Vision needs: Yes (Reading Glasses) Review of Systems Const All systems reviewed & are unremarkable except as noted in HPI and below ENT Denies dizziness Card Denies chest pain, Denies chest pain at rest, Denies chest pain with activity, Denies rapid heart rate, Denies pedal edema, Denies edema, Denies leg edema, Denies lightheadedness, Denies palpitations, Denies dyspnea, Reports dyspnea on exertion and Denies orthopnea Resp Denies cough, Denies dyspnea and Reports dyspnea on exertion GI Denies hematochezia and Denies change in stool character Musc Denies abnormal gait, Denies limited range of motion, Denies muscle cramps, Denies muscle weakness, Denies numbness, Denies radiating pain into limb, Denies stiffness and Denies tingling Neuro Denies abnormal gait, Denies dizziness, Denies numbness and Denies tingling Endo Denies palpitations Physical Exam Vital Signs: BMI result Body Mass Index 28.0 Const General: cooperative, healthy appearing, comfortable and no acute distress Orientation/consciousness: patient oriented x3 Neck Neck: Yes normal visual inspection and Yes no JVD Chest Other: ICD site left upper chest benign. Resp Effort & Inspection: normal respiratory effort Auscultation: clear to auscultation bilaterally, no crackles, no rales, no rhonchi and no wheezes Cardio Jugular venous distension: no JVD Rate: regular rate Rhythm: regular rhythm Heart sounds: S1 normal heart sound present, S2 normal heart sound present, no murmurs and no rubs Neuro General: patient oriented x3 Extrem General: Yes normal to inspection, No no pedal edema and No calf tenderness Psych Appearance: grossly normal Mental Status: mental status grossly normal Speech and movement: Normal speech and movement present Office Procedures Cardiac Device Check Cardiac Device Check Details: Medtronic Bi V ICD interrogation today shows battery 7.2 years, atrial threshold 0.375 volts at 0.4 milliseconds, RV threshold 0.5 volts at 0.4 milliseconds, LV threshold 1.875 volts at 0.4 milliseconds, DDD mode, low rate 60, brief high V rates, no VF or therapies needed, activity 2.4 hours per day, V paced 97.7% [id number] Cardiac Device Check, multi lead implantable defibrillator Procedure code (CPT) selection complete Assessment & Plan Assessment & Plan (1) CAD (coronary artery disease): Code(s): I25.10 - Atherosclerotic heart disease of [place] coronary artery without angina pectoris Category: Medical Qualifiers: Coronary Disease-Associated Artery/Lesion type: [place] artery [place] vs. transplanted heart: [place] heart Associated angina: with stable angina Qualified Code(s): I25.118 - Atherosclerotic heart disease of [place] coronary artery with other forms of angina pectoris Plan: History of CAD with anterior STEMI proximal LAD occlusion and HENRIK placed, 12/2018. He is known to have residual ischemic cardiomyopathy. Cardiac catheterization done for chest discomfort 01/06/2021 showed mid LAD stent patent, proximal section 40% stenosis, 1st diagonal 30% stenosis, left circumflex mild disease, RCA mild disease, distally 75% stenosis. He did undergo Bi V ICD placement 12/2023. Last echo 06/18/2025 showed EF 25-30% with regional wall motion abnormality consistent with ischemic cardiomyopathy, mild aortic regurgitation.. He does not appear fluid overloaded on exam today. He is on aspirin indefinitely, high-dose atorvastatin with ideal LDL goal less than 70, metoprolol and losartan for neurohormonal modulation, Aldactone for diuretic. NYHA class 1-2. Signs and symptoms of heart failure and angina reviewed with him. Has pulse rate is elevated today, will increase his metoprolol XL to 50 mg b.i.d.. Cardiology follow-up 6 months, sooner if needed. (2) History of coronary artery stent placement: Comment: He presented with anterior STEMI in December 2018. He underwent emergent cardiac catheterization where proximal LAD was occluded which was treated with drug-eluting stent. Code(s): Z95.5 - Presence of coronary angioplasty implant and graft Category: Surgical Plan: As above (3) Ischemic cardiomyopathy: Code(s): I25.5 - Ischemic cardiomyopathy Category: Medical Plan: Ischemic cardiomyopathy with last known EF 25-30%. He continues on appropriate medical management with no signs of decompensated heart failure. Labs 03/02/2025 showed creatinine 0.79. Continue losartan and metoprolol XL. Low-salt diet reviewed. Physical activity as tolerated. (4) HFrEF (heart failure with reduced ejection fraction): Comment: Ejection fraction as low as 20-25%, on 06/18/2025 EF 25-30%. Code(s): I50.20 - Unspecified systolic (congestive) heart failure Category: Medical Plan: As above (5) LBBB (left bundle branch block): Comment: Chronic and stable Code(s): I44.7 - Left bundle-branch block, unspecified Category: Medical Plan: History of left bundle branch block. Now has Bi V ICD (6) Deaf, nonspeaking: Code(s): H91.3 - Deaf nonspeaking, not elsewhere classified Category: Medical Plan: deaf interpreter is needed for his visis (7) History of implantable cardioverter-defibrillator (ICD) placement: Code(s): Z95.810 - Presence of automatic (implantable) cardiac defibrillator Category: Surgical Plan: Medtronic Bi V ICD interrogation today shows device is functioning normally. No VT or VF, no therapies. Remote monitoring in use. Next office interrogation due in 6 months. (8) HLD (hyperlipidemia): Comment: His triglycerides are more than 500. He is on gemfibrozil. Code(s): E78.5 - Hyperlipidemia, unspecified Category: Medical Qualifiers: Hyperlipidemia type: mixed hyperlipidemia Qualified Code(s): E78.2 - Mixed hyperlipidemia Plan: [place] LDL goal less than 70 in patient with CAD. Labs done 03/02/2025 showed LDL 68. Continue high-dose atorvastatin. Plan Time spent on chart review, documentation, interview and assessment Medications: Changed From metoprolol succinate ER 50 mg PO DAILY 90 tabs 3RF To metoprolol succinate ER Dose increase 50 mg PO BID 180 tabs 3RF Coding Level of Care Code Est Pt Level 4 (44026) Complex EM visit Add On G2211 Diagnoses Coronary artery disease of [place] artery of [place] heart with stable angina pectoris I25.118 Coronary Disease-Associated Artery/Lesion type: [place] artery [place] vs. transplanted heart: [place] heart Associated angina: with stable angina History of coronary artery stent placement Z95.5 Ischemic cardiomyopathy I25.5 HFrEF (heart failure with reduced ejection fraction) I50.20 LBBB (left bundle branch block) I44.7 Deaf, nonspeaking H91.3 History of implantable cardioverter-defibrillator (ICD) placement Z95.810 Mixed hyperlipidemia E78.2 Hyperlipidemia type: mixed hyperlipidemia CPT Codes Cardiac Device Check - Cardiac Device 6: [id number] Cardiac Device Check, multi lead implantable defibrillator ([id number]) Time Spent (min) 32
== END 2025-06-25 10:30 | disposition home or self-care (01) ==
LOC: HO.HCS 09:38
PROVIDERS: Visit Provider Nurse Practitioner Family
DX: I25.118 Atherosclerotic heart disease of native coronary artery with other forms of angina pectoris (principal); Z95.5 Presence of coronary angioplasty implant and graft; I25.5 Ischemic cardiomyopathy; I50.20 Unspecified systolic (congestive) heart failure; I44.7 Left bundle-branch block, unspecified; H91.3 Deaf nonspeaking, not elsewhere classified; Z95.810 Presence of automatic (implantable) cardiac defibrillator; E78.2 Mixed hyperlipidemia
CPT/HCPCS: 93284; 99214

== ENCOUNTER → 2025-06-25 09:37 | Outpatient (BNVA) | payer OTHER, SELFPAY | PROVIDERS: Visit Provider Nurse Practitioner Family | DX: I25.118 Atherosclerotic heart disease of native coronary artery with other forms of angina pectoris (principal); I25.5 Ischemic cardiomyopathy; I50.20 Unspecified systolic (congestive) heart failure; I44.7 Left bundle-branch block, unspecified; H91.3 Deaf nonspeaking, not elsewhere classified; Z95.810 Presence of automatic (implantable) cardiac defibrillator; Z95.5 Presence of coronary angioplasty implant and graft; E78.2 Mixed hyperlipidemia | CPT/HCPCS: 99212 ==

== ENCOUNTER 2025-08-04 13:49 | Outpatient (AMB) | payer OTHER, SELFPAY ==
[2025-08-04 14:01] VITALS: BP 140/60; PULSE 91; O2SAT 94; BMI 27.2
--- NOTE | 2025-08-04 14:01 | A.OFFVIS_ITS ---
Vital Signs 08/04/25 14:01 Height 5 ft 6 in Weight 168 lb 10.458 oz BMI 27.2 BP 140/60 H Blood Pressure Location Lt brachial Position Sitting Pulse 91 Pulse Source Pulse Oximeter Pulse Oximetry (%) 94 Oxygen Delivery Method Room Air Intake Visit Reasons: Pulm Nodule Intake Note: pt is here for follow up and states he is feeling good, some wheezing and cough but contibuting to air quality, pt woud like humidifier, had episode of issue with his legs after eating, he noticed swelling in his legs Precision Assembler Bench Required: Yes Precision Assembler Bench Services: Precision Assembler Bench Present Precision Assembler Bench Name: Rusty Clements News Library Director: News Library Director offered & declined Allergies No Known Allergies (No Known Allergies*) Allergy (Verified 08/04/25 14:39) Medication List - Last Reconciled 08/04/25 by Santa Uribe MD albuterol sulfate 90 mcg/actuation (Ventolin HFA) 1 inh inhalation QID 30 days aspirin 81 mg PO DAILY atorvastatin 80 mg PO DAILY 90 days baclofen 10 mg PO BID 15 days blood sugar diagnostic (FreeStyle Lite Strips) As directed blood-glucose meter (FreeStyle Lite Meter kit) As directed dapagliflozin propanediol (Farxiga) 10 mg PO DAILY 90 days ipratropium-albuterol 20-100 mcg/actuation (Combivent Respimat) 1 puff PO QID 30 days lancets ([employer] Safety Lancet) As directed lancets (FreeStyle Lancets) As directed metformin 1,000 mg PO BID 90 days metoprolol succinate ER 50 mg PO BID multivit with min-folic acid 80 mcg (Centrum Adult 50 Plus) 1 tab PO DAILY quetiapine (Seroquel) 25 mg PO BEDTIME 90 days sennosides (senna) 17.2 mg (2 x 8.6 mg) PO BEDTIME 15 days spironolactone 25 mg PO DAILY Do you need a note to return to daycare/school/sports/work: No HPI HPI Pulm Nodule: Details: This 64 years old gentleman who is deaf and dumb and, communicates with only sign language. A mechanical systems designer was used. Also his sister helped us for communication. He claims that his breathing is good and stable as long as he uses Combivent Respimat 3 times a day. He does not find much difference with using the albuterol. He is nonsmoker. Previously has had CT scan of the chest for multiple pulmonary nodules but they are interpreted as calcified granulomas. And also as he is not a smoker so he is, not at an increased risk for lung cancer. [facility] Medical History ICD (implantable cardioverter-defibrillator) discharge Tobacco dependence Asthma Grade II diastolic dysfunction Mitral regurgitation Aortic regurgitation HFrEF (heart failure with reduced ejection fraction) COPD (chronic obstructive pulmonary disease) High blood cholesterol level Chest pressure Shortness of breath at rest Physical exam Heart problem KAITLYN (obstructive sleep apnea) Insomnia Hyperlipidemia Deaf, nonspeaking Asthma Surgical History History of cardiac catheterization History of cholecystectomy Family History Father No problems noted. Mother Diabetes Sister Diabetes High cholesterol Social History Housing: Apartment Alcohol intake: current Alcohol intake frequency: holidays/special occasions only Alcohol type: beer Patient Tobacco Use Status: Former Tobacco user Tobacco use type: Cigarette Cigarettes Per Day: 1 e-Cigarette/Vaping Use: Never Used Second Hand Smoke Exposure: Yes service: No Current occupational status: disabled Cognitive needs: No Hearing needs: Yes (Hearing aides) Vision needs: Yes (Reading Glasses) Review of Systems Const All systems reviewed & are unremarkable except as noted in HPI and below Eyes Reports no additional complaints ENT Reports no additional complaints and Denies Normal hearing present (DEAF AND DUMB) Card Denies chest pain, Denies irregular heart rhythm and Denies leg edema Resp Reports as per HPI GI Reports no additional complaints Reports no additional complaints Musc Reports no additional complaints Neuro Denies Normal hearing present (DEAF AND DUMB) Physical Exam Vital Signs: Last Vital Signs Pulse 91 08/04/25 14:01 BP 140/60 H 08/04/25 14:01 Pulse Ox 94 08/04/25 14:01 Oxygen Delivery Method Room Air 08/04/25 14:01 BMI result Body Mass Index 27.2 Const General: healthy appearing, comfortable, no acute distress, alert and awake Orientation/consciousness: patient oriented x3 HEENT Head: Yes normal to inspection General nose exam: No nasal polyps present and No nasal discharge present Face and sinus: Yes sinuses nontender Mouth: oropharynx normal Throat: Yes posterior oropharynx normal Eyes General: appearance normal, both eyes and all related structures Neck Neck: Yes normal visual inspection, Yes no lymphadenopathy, Yes trachea midline and Yes no JVD Thyroid: Thyroid normal Chest Chest palpation & inspection: normal inspection of the chest, normal palpation of entire chest wall, no tenderness and Pacemaker present (Recently installed in left pectoral area) Resp Other: Percussion note resonant, breath sounds are equal on both sides, slightly distant with prolonged expiratory phase. No wheezes rhonchi or crepitations are heard today . Cardio Palpation: normal PMI Rate: regular rate Rhythm: regular rhythm Heart sounds: no gallops and no murmurs GI Palpation (GI): Soft to palpation, nontender, No hepatosplenomegaly present and no masses Auscultation: normal bowel sounds Back/Spine/Pelvis Thoracic/Lumbar Spine: thoracic and lumbar spine normal to inspection Skin General skin exam: no rashes or lesions noted Neuro General: patient oriented x3 and no focal motor deficits Cranial nerves: No Normal hearing present (DEAF AND DUMB) Extrem General: Yes normal to inspection, Yes no clubbing, cyanosis or edema and Yes no calf tenderness Psych Appearance: well kempt Mental Status: mental status grossly normal (Communicated with him via sign language) Speech and movement: Normal speech and movement present Assessment & Plan Assessment & Plan (1) COPD (chronic obstructive pulmonary disease): Comment: HE DOES HAVE MILD TO MODERATE DEGREE OF CHRONIC OBSTRUCTIVE PULMONARY DISEASE. CURRENTLY SEEMS TO BE WELL CONTROLLED AND STABLE ON COMBIVENT RESPIMAT , USING TID P.R.N. OR SOME TIMES REGULARLY * PULMONARY FUNCTION TEST PERFORMED ON 05/16/23 RESULTS C/W MODERATELY SEVERE OBSTRUCTIVE AIRWAY DISORDER. NO RESPONSE TO BDs Code(s): J44.9 - Chronic obstructive pulmonary disease, unspecified Category: Medical Qualifiers: COPD type: emphysema Emphysema type: centrilobular Qualified Code(s): J43.2 - Centrilobular emphysema Plan: Advised to use Combivent Respimat 1 inhalation t.i.d. regularly May use albuterol HFA 2 puffs Q 6 hours p.r.n. ( however he does not like to use it, he would rather use Combivent Respimat ) For the winter months he needs to use a vaporizer in his bedroom, for which I have hand written a prescription. (2) Pulmonary nodule 1 cm or greater in diameter: Comment: PATIENT DOES HAVE MULTIPLE SMALL CALCIFIED GRANULOMAS, IN BOTH LUNGS. THESE ARE CONSIDERED BENIGN. ONE NODULE 1X0.8 CM IN LEFT LOWER LOBE DESCRIBED ABOVE. A REPEAT CT SCAN AT 3 MONTHS INTERVAL WAS RECOMMENDED WHICH WAS PERFORMED IN SEPTEMBER 2023. ------- CT SCAN 10/04/2023 IMPRESSION : 1. Respiratory motion artifact limits evaluation. 2. Emphysematous changes. Emphysematous changes. Biapical pleural parenchymal scarring. Subpleural cystic changes with reticular nodular opacities. Findings may reflect an element of interstitial lung disease. 3. Multiple calcified granuloma throughout the bilateral lung buchanan the evaluation for noncalcified nodules is limited secondary to respiratory motion. 4. A few mildly prominent though nonenlarged mediastinal lymph nodes are noted the largest in the paratracheal region measuring up to 9 mm in short axis. 5. Cholecystectomy. 6. 9 mm splenule. I think the pulmonary nodules reported or mostly calcified granulomata. As he does not smoke anymore, I do not think that he needs ongoing CT scans. Code(s): R91.1 - Solitary pulmonary nodule Category: Medical Plan: as above (3) Smoker: Comment: He is a long-time smoker, Now Ex-smoker . Claims that he smoked only a few cigarettes a day , not excessively. He has quit smoking completely since 2022 . Code(s): F17.200 - Nicotine dependence, unspecified, uncomplicated Category: Social Hx Plan: Commended for not smoking Coding Level of Care Code Est Pt Level 3 (96742) Diagnoses Centrilobular emphysema J43.2 COPD type: emphysema Emphysema type: centrilobular Pulmonary nodule 1 cm or greater in diameter R91.1 Smoker F17.200
== END 2025-08-04 14:37 | disposition home or self-care (01) ==
LOC: HO.HPS 13:50
PROVIDERS: PCP Physician Assistant; Visit Provider Internal Medicine
DX: J43.2 Centrilobular emphysema (principal); R91.1 Solitary pulmonary nodule; F17.200 Nicotine dependence, unspecified, uncomplicated
CPT/HCPCS: 99213

== ENCOUNTER → 2025-08-04 13:49 | Outpatient (BNVA) | payer OTHER, SELFPAY | PROVIDERS: PCP Physician Assistant; Visit Provider Internal Medicine | DX: J43.2 Centrilobular emphysema (principal); R91.1 Solitary pulmonary nodule; R60.9 Edema, unspecified | CPT/HCPCS: 99212 ==